=== PATIENT | male | born 1960 | race Caucasian/White ===

== ENCOUNTER → 2016-04-03 | Outpatient (CLI) | payer MEDICARE, MEDICAID ==
[~2016-04-03] MED LIST: /DIVA50TA PO; ABIL15TA PO; BENZ5TA PO; CETI10TA PO; DEPA500T2 PO; DIVA500T3 PO; INSUDET SC; JANU100T PO; LATU40TA PO; LATU80TA PO; LEVEINJ SC; LISI5TAB PO; NEXI40GR PO; RISP4TAB2 PO; RISP4TAB33 PO; SIMV40TA2 PO; TRAZ100T2 PO; abilify PO
[2016-04-03 17:40] LABS: ALBUMIN/GLOBULIN RATIO 1.33 (1.00-1.93); ALKALINE PHOSPHATASE 60 U/L (45-117); ALT/SGPT 18 U/L (12-78); ANION GAP 6 MEQ/L (8-16); AST/SGOT 6 U/L (15-37); BILIRUBIN,TOTAL 0.6 MG/DL (0.2-1.0); BLOOD UREA NITROGEN 10 MG/DL (7-18); CALCIUM LEVEL 8.9 MG/DL (8.5-10.1); CARBON DIOXIDE LEVEL 32 MEQ/L (21-32); CHLORIDE LEVEL 99 MEQ/L (98-107); CHOLESTEROL LEVEL 159 MG/DL (<200); CREATININE FOR GFR 0.85 MG/DL (0.70-1.30); FREE T4 0.91 NG/DL (0.76-1.46); GLOMERULAR FILTRATION RATE > 60.0 (>56); GLUCOSE, FASTING 151 MG/DL (70-105); POTASSIUM SERUM 4.5 MEQ/L (3.5-5.1); SODIUM LEVEL 137 MEQ/L (136-145); TRIGLYCERIDES LEVEL 165 MG/DL (<150)
[2016-04-03 18:02] LABS: BASO % 0.4 % (0.0-1.0); EOS # 0.2 K/mm3 (0.0-0.50); EOS % 2.3 % (0.0-3.0); LYMPH # 1.7 K/mm3 (1.5-4.5); MEAN CORPUSCULAR HEMOGLOBIN 32.6 pg (27.0-33.0); MEAN CORPUSCULAR HGB CONC 34.1 g/dl (32.0-36.5); MEAN CORPUSCULAR VOLUME 95.5 fl (80.0-96.0); MONO # 0.6 K/mm3 (0.0-0.8); MONO % 6.4 % (0.0-5.0); NEUTROPHILS % 73.1 % (36.0-66.0); RED CELL DISTRIBUTION WIDTH 12.3 % (11.5-14.5); WHITE BLOOD COUNT 9.6 K/mm3 (4.0-10.0)
== END ==
LOC: M WUC 11:43
PROVIDERS: ATTEND Nurse Practitioner Adult Health
DX: Z79.899 Other long term (current) drug therapy (principal); E78.4 Other hyperlipidemia; E03.9 Hypothyroidism, unspecified; E11.65 Type 2 diabetes mellitus with hyperglycemia

== ENCOUNTER → 2016-05-10 | Outpatient (CLI) | payer MEDICARE, MEDICAID ==
[2016-05-10 14:07] LABS: LITHIUM LEVEL 0.87 MEQ/L (0.60-1.20)
== END ==
LOC: M WUC 09:01
PROVIDERS: ATTEND Psychiatry & Neurology Psychiatry
DX: Z79.899 Other long term (current) drug therapy (principal)

== ENCOUNTER → 2016-07-06 | Outpatient (CLI) | payer MEDICARE, MEDICAID ==
[2016-07-06 17:56] LABS: BASO % 0.5 % (0.0-1.0); EOS # 0.1 K/mm3 (0.0-0.50); EOS % 2.7 % (0.0-3.0); LYMPH # 1.7 K/mm3 (1.5-4.5); LYMPH % 33.7 % (24.0-44.0); MEAN CORPUSCULAR HEMOGLOBIN 32.8 pg (27.0-33.0); MEAN CORPUSCULAR HGB CONC 33.4 g/dl (32.0-36.5); MEAN CORPUSCULAR VOLUME 98.2 fl (80.0-96.0); MONO # 0.4 K/mm3 (0.0-0.8); MONO % 8.1 % (0.0-5.0); NEUTROPHILS # 2.7 K/mm3 (1.8-7.7); NEUTROPHILS % 52.6 % (36.0-66.0); RED CELL DISTRIBUTION WIDTH 12.2 % (11.5-14.5); WHITE BLOOD COUNT 5.1 K/mm3 (4.0-10.0)
[2016-07-06 18:26] LABS: ALBUMIN 3.9 GM/DL (3.2-5.2); ALKALINE PHOSPHATASE 53 U/L (45-117); ALT/SGPT 16 U/L (12-78); ANION GAP 5 MEQ/L (8-16); AST/SGOT 5 U/L (15-37); BILIRUBIN,TOTAL 0.3 MG/DL (0.2-1.0); BLOOD UREA NITROGEN 12 MG/DL (7-18); CALCIUM LEVEL 8.8 MG/DL (8.5-10.1); CARBON DIOXIDE LEVEL 32 MEQ/L (21-32); CHLORIDE LEVEL 104 MEQ/L (98-107); CHOLESTEROL LEVEL 161 MG/DL (<200); CREATININE FOR GFR 0.85 MG/DL (0.70-1.30); GLOMERULAR FILTRATION RATE > 60.0 (>56); GLUCOSE, FASTING 115 MG/DL (70-105); POTASSIUM SERUM 4.4 MEQ/L (3.5-5.1); SODIUM LEVEL 141 MEQ/L (136-145); TOTAL PROTEIN 6.9 GM/DL (6.4-8.2); TRIGLYCERIDES LEVEL 131 MG/DL (<150)
== END ==
LOC: M WUC 11:12
PROVIDERS: ATTEND Nurse Practitioner Adult Health
DX: E11.65 Type 2 diabetes mellitus with hyperglycemia (principal); Z79.899 Other long term (current) drug therapy; E78.4 Other hyperlipidemia; E55.9 Vitamin D deficiency, unspecified

== ENCOUNTER → 2016-08-16 | Outpatient (CLI) | payer MEDICARE, MEDICAID ==
[~2016-08-16] MED LIST changes: +CARN250C3 PO; +DEPA250T32 PO; +DIVA500T9 PO; +ESOM1CAP5 PO; +FLOM5CAP PO; +GEMF600T PO; +KEFL500C17 PO; +LATA5OPD OD; +LEVE1INJ5 SC; +LEVO25TA5 PO; +LISI-542 PO; +LITH150C PO; +LITH300C PO; +NAPR500T PO; +PRIM250T8 PO; +RISP1TAB3 PO; +SENN1TAB2 PO; +TRIH2TAB3 PO; +[UNRECOGNIZED DRUG - OTHER] PO
--- NOTE | 2016-08-16 17:48 | REP ---
Clinical: Dysphonia. Findings: Low density changes in the white matter of the left frontal lobe is concerning for infarction and less likely underlying mass lesion. No intracranial hemorrhage. No significant mass effect. No extra-axial collection. The ventricles are relatively normal. The calvarium is intact. The sinuses are clear. Impression: Low density changes in the left frontal lobe. Differential diagnosis includes chronic changes as well as acute infarction and less likely underlying mass lesion. Signed by Charanjit Long MD 08/16/2016 05:39 P
== END ==
LOC: M RAD 17:21
PROVIDERS: ATTEND Nurse Practitioner Adult Health
DX: R49.0 Dysphonia (principal); R41.0 Disorientation, unspecified

== ENCOUNTER 2016-08-20 13:20 | Inpatient (IN) | payer MEDICARE, MEDICAID ==
[~2016-08-20] VITALS: Ht 177.8 cm; Wt 94.4 kg
[~2016-08-20 13:20] MED LIST changes: -CARN250C3 PO; -DEPA250T32 PO; -DIVA500T9 PO; -ESOM1CAP5 PO; -FLOM5CAP PO; -GEMF600T PO; -KEFL500C17 PO; -LATA5OPD OD; -LEVE1INJ5 SC; -LEVO25TA5 PO; -LISI-542 PO; -LITH150C PO; -LITH300C PO; -NAPR500T PO; -PRIM250T8 PO; -RISP1TAB3 PO; -SENN1TAB2 PO; -TRIH2TAB3 PO; -[UNRECOGNIZED DRUG - OTHER] PO
[2016-08-20] MEDS ORDERED: LEVO25TA5 PO (14:13)
[2016-08-20] MEDS ORDERED: PRIM250T8 PO (14:13)
[2016-08-20] MEDS ORDERED: [UNRECOGNIZED DRUG - OTHER] PO (14:13)
[2016-08-20] MEDS ORDERED: DEPA250T32 PO (14:13)
[2016-08-20] MEDS ORDERED: GEMF600T PO (14:13)
[2016-08-20] MEDS ORDERED: RISP1TAB3 PO (14:13)
[2016-08-20] MEDS ORDERED: LATA5OPD OD (14:13)
[2016-08-20] MEDS ORDERED: LITH300C PO ×2 (14:13)
[2016-08-20 14:46] LABS: ANION GAP 6 MEQ/L (8-16); BLOOD UREA NITROGEN 25 MG/DL (7-18); CARBON DIOXIDE LEVEL 27 MEQ/L (21-32); CHLORIDE LEVEL 103 MEQ/L (98-107); CREATININE FOR GFR 1.18 MG/DL (0.70-1.30); GLOMERULAR FILTRATION RATE > 60.0 (>56); GLUCOSE, FASTING 78 MG/DL (70-105); POTASSIUM SERUM 3.8 MEQ/L (3.5-5.1); SODIUM LEVEL 136 MEQ/L (136-145)
[2016-08-20 14:47] LABS: INR 1.1
--- NOTE | 2016-08-20 14:48 | REP ---
Clinical: Altered mental status. Cerebrovascular accident. Comparison: 08/16/2016. Findings: Age-related atrophy and microvascular ischemic changes are again appreciated and stable. Low density area within the left frontal lobe white matter remain stable and may represent chronic change. No acute mass/mass effect. No intracranial hemorrhage. No extra-axial collection. The ventricle and cisterns are symmetric and normal. The calvarium is intact. The sinuses are clear. Impression: No change from prior examination. Low density area within the left frontal lobe remains stable. No new acute intracranial process identified. Signed by Charanjit Long MD 08/20/2016 02:39 P
[2016-08-20 14:52] LABS: BASO # 0.1 K/mm3 (0.0-0.2); BASO % 0.8 % (0.0-1.0); EOS # 0.1 K/mm3 (0.0-0.50); EOS % 1.5 % (0.0-3.0); LARGE UNSTAINED CELL # 0.2 K/mm3 (0.0-0.4); LARGE UNSTAINED CELL % 1.7 % (0.0-4.0); LYMPH # 1.2 K/mm3 (1.5-4.5); LYMPH % 13.6 % (24.0-44.0); MEAN CORPUSCULAR HEMOGLOBIN 33.2 pg (27.0-33.0); MEAN CORPUSCULAR HGB CONC 35.9 g/dl (32.0-36.5); MEAN CORPUSCULAR VOLUME 92.5 fl (80.0-96.0); MONO # 0.6 K/mm3 (0.0-0.8); MONO % 6.4 % (0.0-5.0); NEUTROPHILS # 6.8 K/mm3 (1.8-7.7); NEUTROPHILS % 75.9 % (36.0-66.0); PLATELET COUNT, AUTOMATED 242 k/mm3 (150-450); RED CELL DISTRIBUTION WIDTH 12.1 % (11.5-14.5)
[2016-08-20] MEDS ORDERED: DIVA500T9 PO (17:22)
[2016-08-20] MEDS ORDERED: ESOM1CAP5 PO (17:24)
[2016-08-20] MEDS ORDERED: CARN250C3 PO (17:24)
[2016-08-20] MEDS ORDERED: LISI-542 PO (17:26)
[2016-08-20] MEDS ORDERED: LEVE1INJ5 SC (17:26)
[2016-08-20] MEDS ORDERED: JANU100T PO (17:27)
[2016-08-20] MEDS ORDERED: TRIH2TAB3 PO (17:27)
[2016-08-20] MEDS ORDERED: RISP4TAB33 PO (17:28)
[2016-08-20] MEDS ORDERED: ASPIRIN 81 MG CHEW TABLET PO ONE (17:30)
[2016-08-20 17:35] LABS: LITHIUM LEVEL 2.23 MEQ/L (0.60-1.20)
[2016-08-20] MEDS ORDERED: NS 1,000 ML IV ONE (18:00)
[2016-08-20] MEDS ORDERED: GLUCAGON FOR INJ 1 MG VIAL (J1610) SC PRN (19:30)
[2016-08-20] MEDS ORDERED: DEXTROSE 50% 50 ML SYRINGE IV PRN (19:30)
[2016-08-20] MEDS ORDERED: IPRATROPIUM 0.5MG/ALBUTEROL 2.5MG INH SOL UD 3ML (DUONEB)(J7620) NEB PRN (19:30)
[2016-08-20] MEDS: IPRATROPIUM 0.5MG/ALBUTEROL 2.5MG INH SOL UD 3ML (DUONEB)(J7620) NEB SCH (20:00)
--- NOTE | 2016-08-20 20:20 | REPUSA ---
MRI of the brain Clinical history: difficulty walking. Technique: Multiecho multiplanar MRI images of the brain were obtained Before and after administrati on of intravenous gadolinium contrastcontrast. Diffusion weighted images with ADC mapping was also ob tained. Comparison: CT, 08/20/2016. Findings: The study is somewhat limited because of patient motion. The ventricles and sulci are symmetric but prominent in size bilaterally. This is most prominent in the posterior parietal and occipital lobes b ilaterally. The brain parenchyma demonstrates a focal area of T2 hyperintensity in the subcortical wh ite matter of the left frontal lobe. There is no evidence of restricted diffusion at the site however . There is no discrete evidence of abnormal enhancement. There is no midline shift, mass effect, or e xtra-axial fluid collection. The midline intracranial structures do not demonstrate any gross abnorma lities. The cervical cranial junction is intact. The orbits are unremarkable. The visualized paranasa l sinuses and mastoid air cells are clear. The osseous structures and superficial soft tissues are un remarkable. The vascular structures demonstrate appropriate flow voids. Impression: 1. Moderately severe age-related atrophy, most prominent in the posterior parietal and occipital lobe s bilaterally. 2. Large area of subcortical white matter changes in the left frontal lobe. Mildbilateral subcortical white matter changes are also appreciated. No evidence of restricted diffusion to suggest acute infa rct however. The findings most likely represent chronic small vessel ischemic disease.
[2016-08-20 21:00] VITALS: BP 129/84
[2016-08-20] MEDS: LATANOPROST 0.005% OPHTH SOLN 2.5 ML OD SCH (21:00)
[2016-08-20] MEDS: HumaLOG INSULIN (NovoLOG) PER UNIT SC SCH (21:00)
[2016-08-20] MEDS: risperiDONE 2 MG TAB PO SCH (23:39)
[2016-08-20] MEDS: PRIMIDONE 250 MG TAB PO SCH (23:39)
[2016-08-20] MEDS: TRIHEXYPHENIDYL 2 MG TAB PO SCH (23:39)
[2016-08-20] MEDS: DIVALPROEX 500MG *ER* TAB PO SCH (23:39)
[2016-08-20] MEDS: levOCARNitine ORAL SOLUTION 1,000 MG/10 ML (CARNITOR) PO SCH (23:39)
[2016-08-20] MEDS: GEMFIBROZIL 600 MG TAB PO SCH (23:39)
[2016-08-21] VITALS (7 sets, daily range): BP systolic 93–149; BP diastolic 52–89
[2016-08-21] MEDS: IPRATROPIUM 0.5MG/ALBUTEROL 2.5MG INH SOL UD 3ML (DUONEB)(J7620) NEB SCH ×4 (01:31→19:42)
[2016-08-21] MEDS: LEVOTHYROXINE 25MCG TABLET (0.025MG) PO SCH (06:00)
--- NOTE | 2016-08-21 06:16 | HPE ---
DATE OF ADMISSION: 08/20/2016 PRIMARY CARE PROVIDER: Lisa Hill NP CHIEF COMPLAINT: Difficulty ambulating. HISTORY OF PRESENT ILLNESS: Patient is a 55-year-old male with past medical history of tardive dyskinesia, schizoaffective disorder, expressive aphasia presented with about a 10 day history of confusion, impaired balance, slurred speech, disorientation and difficulty ambulating. He normally lives alone, but due to the current issues has moved in with mom, who is currently taking care of him. He is unable to function like he did in the past. Mom and sister at bedside spoke on his behalf because he is not able to communicate his medical problems now. Appears somewhat confused. REVIEW OF SYSTEMS: Unable to obtain. PAST MEDICAL HISTORY: From sister: Insulin-dependent diabetes mellitus, hypertension. PAST SURGICAL HISTORY: Cholecystectomy. FAMILY HISTORY: Dad has CAD, CVA and diabetes. Mother has hypertension and osteoarthritis. SOCIAL HISTORY: He is an ex-smoker and does not drink alcohol or use recreational drugs. He used to live alone. ALLERGY TO MEDICATIONS: None. His list of medications are: - aspirin 81 mg once a day - Depakote extended release 500 mg by mouth twice a day - gemfibrozil 600 mg by mouth twice a day - Levemir 56 units once a day - latanoprost 0.05% ophthalmic solution at night - levocarnitine 250 mg twice a day - levothyroxine 25 mcg once a day - lisinopril 5 mg daily - primidone 250 mg by mouth twice a day - risperidone 4 mg by mouth nightly - risperidone 1 mg by mouth every morning - Januvia 100 mg daily - Artane 2 mg by mouth three times a day PHYSICAL EXAMINATION: VITAL SIGNS: Blood pressure 129/84, pulse 82, respiratory rate 22, oxygen saturation 97% in room air, temperature 98.4 degrees Fahrenheit. GENERAL: He is awake, oriented to person only, doubt if he recognizes his environment time, appears comfortable in bed. HEENT: Pupils equal, round and reactive to light. Anicteric sclerae. Mucous membranes moist. CARDIOVASCULAR SYSTEM: S1, S2, present. Heart rate is regular. RESPIRATORY SYSTEM: Lungs clear. GASTROINTESTINAL (GI): Abdomen soft, nontender, nondistended. Bowel sounds are normal. MUSCULOSKELETAL SYSTEM: No edema, cyanosis or clubbing. Pulses palpable in all extremities. SKIN: Is warm, dry, acyanotic. Without rash, petechia or ecchymosis. NEUROLOGY: Deferred. LABORATORY DATA: Hematology: White blood cell count 9000, hemoglobin 14, hematocrit 39, platelets 242. Coagulopathy: INR 1.1, PT 14.4, PTT 31.9. Chemistry: Sodium 136, potassium 3.8, chloride 103, bicarbonate 27, BUN 25, creatinine 1.18, fasting glucose 78, calcium 9.8, ammonia 58, CK of 40, troponin less than 0.02. Toxicology: Valproic acid 44.3, lithium 2.23. IMAGING STUDIES: CT scan of the head without contrast: No change from prior exam. Low density area within the left frontal lobe remains stable. No new acute intracranial process. EKG: Normal sinus rhythm at 85 beats per minute with left axis deviation. IMPRESSION: 1. Toxic encephalopathy. 2. Digoxin toxicity. 3. Difficulty ambulating. 4. History of diabetes, controlled. 5. History of hypertension, stable. 6. History of schizoaffective disorder. PLAN: Patient is admitted. As per neuro on-call recommendation, he was given aspirin. MRI of the brain ordered. Hydrated with saline. Repeat lithium level pending. Blood sugar will be monitored and covered with sliding scale insulin. Resume his chronic home medications, excluding lithium for now. Please observe for fall precaution due to impaired gait. Deep venous thrombosis (DVT) prophylaxis is with Lovenox.
[2016-08-21 07:29] LABS: MEAN CORPUSCULAR HEMOGLOBIN 32.6 pg (27.0-33.0); MEAN CORPUSCULAR VOLUME 93.1 fl (80.0-96.0); RED CELL DISTRIBUTION WIDTH 12.1 % (11.5-14.5); WHITE BLOOD COUNT 6.1 K/mm3 (4.0-10.0)
--- NOTE | 2016-08-21 07:30 | ECGEPIP ---
Stationary ECG Study [facility] - ED Test Date: 2016-08-20 Pat Name: VASU FAIR Department: Room: - Gender: M [employer]: ct : 1960 Requested By: VASU Oliver Order Number: [id number] Reading MD: Michelle Berg Measurements Intervals [place] Rate: 85 P: 74 MO: 172 QRS: -36 QRSD: 116 T: -21 QT: 273 QTc: 326 Interpretive Statements SINUS RHYTHM MARKED LEFT AXIS DEVIATION LOW QRS VOLTAGE IN EXTREMITY LEADS MODERATE INTRAVENTRICULAR CONDUCTION DELAY NONSPECIFIC T-WAVE ABNORMALITY Electronically Signed On 08-21-2016 7:30:50 EDT by Michelle Berg
[2016-08-21 08:04] LABS: ALBUMIN 3.5 GM/DL (3.2-5.2); ALBUMIN/GLOBULIN RATIO 1.35 (1.00-1.93); ALKALINE PHOSPHATASE 59 U/L (45-117); ALT/SGPT 14 U/L (12-78); ANION GAP 9 MEQ/L (8-16); AST/SGOT 8 U/L (15-37); BILIRUBIN,TOTAL 0.3 MG/DL (0.2-1.0); BLOOD UREA NITROGEN 20 MG/DL (7-18); CALCIUM LEVEL 8.9 MG/DL (8.5-10.1); CARBON DIOXIDE LEVEL 24 MEQ/L (21-32); CHLORIDE LEVEL 105 MEQ/L (98-107); CREATININE FOR GFR 0.82 MG/DL (0.70-1.30); GLOMERULAR FILTRATION RATE > 60.0 (>56); GLUCOSE, FASTING 82 MG/DL (70-105); SODIUM LEVEL 138 MEQ/L (136-145); TOTAL PROTEIN 6.1 GM/DL (6.4-8.2)
[2016-08-21] MEDS: HumaLOG INSULIN (NovoLOG) PER UNIT SC SCH ×4 (08:04→22:07)
[2016-08-21] MEDS: LEVEMIR (INSULIN DETEMIR) 1 UNITS/0.01ML SC SCH (08:55)
[2016-08-21] MEDS: GEMFIBROZIL 600 MG TAB PO SCH ×2 (08:56→21:58)
[2016-08-21] MEDS: risperiDONE 1 MG TAB PO SCH (08:56)
[2016-08-21] MEDS: TRIHEXYPHENIDYL 2 MG TAB PO SCH ×3 (08:56→21:57)
[2016-08-21] MEDS: ENOXAPARIN 40 MG/0.4 ML SYRINGE (J1650) SC SCH (08:56)
[2016-08-21] MEDS: DIVALPROEX 500MG *ER* TAB PO SCH ×2 (08:56→21:58)
[2016-08-21] MEDS: LISINOPRIL 5 MG TAB PO SCH (08:56)
[2016-08-21] MEDS: PRIMIDONE 250 MG TAB PO SCH ×2 (08:56→21:58)
[2016-08-21] MEDS: levOCARNitine ORAL SOLUTION 1,000 MG/10 ML (CARNITOR) PO SCH ×2 (09:48→17:12)
[2016-08-21] MEDS: SITagliptin 50 MG TAB (JANUVIA) PO SCH (09:48)
[2016-08-21] MEDS ORDERED: NS 1,000 ML IV ONE (13:00)
--- NOTE | 2016-08-21 13:19 | IPN ---
DATE: 08/21/2016 SUBJECTIVE: The patient has great difficulty getting his words out. He stammers and stutters. He tells me that he feels well and has no complaints. OBJECTIVE: VITAL SIGNS: Temperature 98.7, pulse 70, respiratory rate 18, blood pressure 107/58, oxygen saturation 98% on room air. GENERAL: He is a disheveled man laying flat in bed. He does writhe in bed. He does have a resting tremor. He does exhibit lip smacking and stutters with slow, slurred speech. However, he is wake, alert and oriented times three and answers all questions appropriately when given appropriate amount of time to answer. HEENT: Dry mucous membranes. No elevation of CVP. He does not cooperate with cranial nerve testing. Tongue is midline. He does not comply with extraocular muscle testing. CARDIOVASCULAR EXAM: S1 and S2 regular. RESPIRATORY EXAM: Clear. ABDOMINAL EXAM: Bowel sounds are present. The abdomen is soft. EXTREMITIES: No clubbing, cyanosis, or edema. LABORATORY STUDIES: WBC 6.1, hemoglobin 12.3, platelet count 235. Chemistry panel: Sodium 138, potassium 4.0, chloride 105, bicarb 24, BUN 20, creatinine 0.8, INR 1.1, lithium level is 1.8 today down from 2.3 yesterday. IMAGING: The patient did have an MRI of the brain which revealed moderate severe age related atrophy, most prominent in the posterior parietal and occipital lobes. Large area of subcortical white matter changes in the left frontal lobe. Mid bilateral subcortical white matter changes also appreciated. Findings most likely present some chronic small vessel ischemic disease. ASSESSMENT/PLAN: This is an 83-year-old man with encephalopathy. 1. Encephalopathy. Likely related to lithium toxicity. The patient's lithium level is trending down at this time. He is oriented, but certainly not at his baseline. I will have physical therapy/occupational therapy evaluate. I did call and speak with is sister , Joan Foster. She did inform me that from my description today he does appear to be doing better than yesterday. She will stop by and see him today. We will continue holding lithium and continue to monitor him closely and see if he improves. Neurology consultation by Dr. Yip. The patient normally follows with Dr. Thapa for his tardive dyskinesia which appears to have worsened over the last several weeks. He also curiously has moderate severe age related changes, however he is not so advanced for age and seems somewhat disproportionate for the report compared to his age. 2. Schizoaffective disorder. Continue with Risperdal. Patient follows normally with a psychiatrist. Patient is on Depakote extended release. 3. Tardive dyskinesia. Continue with primidone and Artane. Followup neurology recommendations. 4. Hypothyroidism. Continue with Synthroid. 5. Type 2 diabetes. Continue with insulin and sliding scale. 6. Hypertension. Continue with lisinopril. 7. Dyslipidemia. Continue with gemfibrozil. 8. Deep vein thrombosis (DVT) prophylaxis. The patient is on Lovenox. DISPOSITION: Pending improvement and physical therapy evaluation. Continue to follow this patient closely. EDWIN
[2016-08-21] MEDS: NS 1,000 ML IV SCH ×2 (14:47→23:00)
[2016-08-21] MEDS: risperiDONE 2 MG TAB PO SCH (21:58)
[2016-08-21] MEDS: LATANOPROST 0.005% OPHTH SOLN 2.5 ML OD SCH (21:59)
[2016-08-22] MEDS: IPRATROPIUM 0.5MG/ALBUTEROL 2.5MG INH SOL UD 3ML (DUONEB)(J7620) NEB SCH ×4 (01:54→20:28)
[2016-08-22 04:38] VITALS: BP 106/62
[2016-08-22 05:55] LABS: MEAN CORPUSCULAR HEMOGLOBIN 32.6 pg (27.0-33.0); MEAN CORPUSCULAR VOLUME 93.2 fl (80.0-96.0); RED CELL DISTRIBUTION WIDTH 12.2 % (11.5-14.5); WHITE BLOOD COUNT 8.7 K/mm3 (4.0-10.0)
[2016-08-22] MEDS: LEVOTHYROXINE 25MCG TABLET (0.025MG) PO SCH (05:55)
[2016-08-22 06:13] LABS: ANION GAP 6 MEQ/L (8-16); BLOOD UREA NITROGEN 11 MG/DL (7-18); CALCIUM LEVEL 9.2 MG/DL (8.5-10.1); CARBON DIOXIDE LEVEL 28 MEQ/L (21-32); CHLORIDE LEVEL 106 MEQ/L (98-107); CREATININE FOR GFR 0.75 MG/DL (0.70-1.30); GLOMERULAR FILTRATION RATE > 60.0 (>56); GLUCOSE, FASTING 83 MG/DL (70-105); POTASSIUM SERUM 3.9 MEQ/L (3.5-5.1); SODIUM LEVEL 140 MEQ/L (136-145)
--- NOTE | 2016-08-22 07:28 | CR ---
DATE OF CONSULTATION: 08/21/2016 REFERRING PHYSICIAN: Dr. Khloe Yip REASON FOR CONSULTATION: Difficulty walking, confusion and imbalance. HISTORY OF PRESENT ILLNESS: The patient is a 55-year-old man with history of tardive dyskinesia, schizoaffective disorder, expressive aphasia who presented to [facility] with 10 day history of confusion, imbalance slurred speech, disorientation, stuttering speech and difficulty ambulating. The patient normally lives alone, but due to his current medical issues moved with his mother. Mother has been taking care of him. He is unable to function like he did in the past. The patient has stuttering speech when I examine him. Some words and sentences will be clear and other sentences will be affected by stuttering speech. He appeared slightly confused. The patient denies any headaches, neck or back pain. He follows with Dr. Garcia for his psychiatric disorders. PAST MEDICAL HISTORY: 1. Hypertension. 2. Diabetes. 3. Schizoaffective disorder. 4. Tardive dyskinesia. 5. Expressive aphasia. ALLERGIES: None. SOCIAL HISTORY: He is a former smoker. He is currently living with his mother, although usually lives alone. He denies alcohol or illicit drugs. HOME MEDICATIONS: - aspirin 81 mg by mouth daily - Depakote extended-release 500 mg by mouth twice a day - gemfibrozil 600 mg by mouth twice a day - insulin Levemir 56 units once a day subcutaneously - lisinopril 5 mg by mouth daily - primidone 250 mg by mouth twice a day - risperidone 4 mg at night and 1 mg in the morning - Januvia 100 mg by mouth daily - Artane 2 mg by mouth three times a day - levocarnitine 250 mg by mouth twice a day - levothyroxine 25 mcg by mouth daily - lisinopril 5 mg by mouth daily FAMILY HISTORY: Father has coronary artery disease and had a stroke. Mother has hypertension and osteoarthritis. PHYSICAL EXAMINATION: Temperature 96.4, pulse 103, respiratory rate 18, blood pressure 149/88, 95% saturation on room air. Heart: Regular rate and rhythm. Lungs: Clear to auscultation. No pedal edema. He has decreased peripheral pulses. No gross musculoskeletal abnormalities. Ears, nose and throat examination is within normal limits. The patient is awake, alert, oriented to place and person. He has stuttering speech. Sometimes his sentences and words are clear and other times they are affected by a stuttering speech. No facial weakness. Tongue and uvula are midline. Extraocular muscles are intact. 5/5 strength in all four extremities. Deep tendon flexes are 1+ in arms and absent in legs. He has decreased cold pinprick vibration sensation in his feet. Plantars are downgoing. No dysmetria. Gait was not tested. REVIEW OF SYSTEMS: All systems were reviewed and were found to be noncontributory except as mentioned in history of present illness. DIAGNOSTIC STUDIES: His MRI scan of brain showed small vessel ischemic disease of brain and mild-moderate cerebral atrophy. There is no acute ischemic stroke. His lithium level is 2.23 and Depakote level was 44.3 and ammonia level 58. ASSESSMENT: 1. Multifactorial gait difficulty. 2. Diabetic peripheral neuropathy. 3. Extensive small vessel ischemic disease of brain. 4. M[place]ulley toxicity and hyperammonemia. PLAN: 1. Decrease dose of his lithium. The patient will be followed with his psychiatrist to adjust dose of lithium to prevent toxicity in future. 2. Check acetylcholine receptor antibody with my suspicion this index is low. He has more stuttering speech which is likely an effect of his medications and underlying psychiatric conditions.
[2016-08-22] MEDS: HumaLOG INSULIN (NovoLOG) PER UNIT SC SCH ×4 (07:30→21:00)
[2016-08-22] MEDS: ENOXAPARIN 40 MG/0.4 ML SYRINGE (J1650) SC SCH (07:53)
[2016-08-22] MEDS: levOCARNitine ORAL SOLUTION 1,000 MG/10 ML (CARNITOR) PO SCH ×2 (07:54→17:08)
[2016-08-22] MEDS: SITagliptin 50 MG TAB (JANUVIA) PO SCH (07:54)
[2016-08-22] MEDS: risperiDONE 1 MG TAB PO SCH (07:54)
[2016-08-22] MEDS: DIVALPROEX 500MG *ER* TAB PO SCH ×2 (07:54→21:34)
[2016-08-22] MEDS: GEMFIBROZIL 600 MG TAB PO SCH ×2 (07:55→21:34)
[2016-08-22] MEDS: TRIHEXYPHENIDYL 2 MG TAB PO SCH ×3 (07:55→21:34)
[2016-08-22 08:00] VITALS: BP 92/48
[2016-08-22] MEDS: LEVEMIR (INSULIN DETEMIR) 1 UNITS/0.01ML SC SCH (08:28)
[2016-08-22] MEDS: LISINOPRIL 5 MG TAB PO SCH (08:28)
[2016-08-22] MEDS: PRIMIDONE 250 MG TAB PO SCH ×2 (10:10→21:35)
[2016-08-22 12:00] VITALS: BP 105/63
--- NOTE | 2016-08-22 14:57 | IPNPDOC ---
Date Seen The patient was seen on 08/22/16. Progress Note SUBJECTIVE: The patient has great difficulty getting his words out. He stammers and stutters. He tells me that he feels well and has no complaints. OBJECTIVE: VITAL SIGNS: As below. GENERAL: He is a man laying flat in bed. He does exhibit lip smacking and stutters with slow, slurred speech. However, he is wake, alert and oriented times three and answers all questions appropriately when given appropriate amount of time to answer. HEENT: Dry mucous membranes. No elevation of CVP. He does not cooperate with cranial nerve testing. Tongue is midline. He does not comply with extraocular muscle testing. CARDIOVASCULAR EXAM: S1 and S2 regular. RESPIRATORY EXAM: Clear. ABDOMINAL EXAM: Bowel sounds are present. The abdomen is soft. EXTREMITIES: No clubbing, cyanosis, or edema. IMAGING: The patient did have an MRI of the brain which revealed moderate severe age related atrophy, most prominent in the posterior parietal and occipital lobes. Large area of subcortical white matter changes in the left frontal lobe. Mid bilateral subcortical white matter changes also appreciated. Findings most likely present some chronic small vessel ischemic disease. ASSESSMENT/PLAN: This is an 83-year-old man with encephalopathy. 1. Encephalopathy. Likely related to lithium toxicity. The patient's lithium level is trending down at this time. He is oriented, but certainly not at his baseline. Seen by Dr Pereyra ordered acetyl choline receptor antibody though suspicion is low. MRi brain with significant age related and chronic ischemic small vessel disease. 2. Schizoaffective disorder. Continue with Risperdal. Patient follows normally with a psychiatrist. Patient is on Depakote extended release. 3. Tardive dyskinesia. Continue with primidone and Artane. Followup neurology recommendations. 4. Hypothyroidism. Continue with Synthroid. 5. Type 2 diabetes. Continue with insulin and sliding scale. 6. Hypertension. Continue with lisinopril. 7. Dyslipidemia. Continue with gemfibrozil. 8. Deep vein thrombosis (DVT) prophylaxis. The patient is on Lovenox. VS, I&O, 24H, Fishbone Vital Signs/I&O Vital Signs Date Time Temp Pulse Resp B/P (MAP) Pulse Ox O2 Delivery O2 Flow Rate FiO2 08/22/16 12:00 98.7 63 16 105/63 (77) 93 Room Air I&O- Last 24 Hours up to 6 AM 08/22/16 06:00 Intake Total 2260 ml Output Total 1275 ml Balance 985 ml Laboratory Data 24H LABS Laboratory Tests 2 08/21/16 16:53: Bedside Glucose (Misc Panel) 107H 08/21/16 22:05: Bedside Glucose (Misc Panel) 68L 08/22/16 01:36: Bedside Glucose (Misc Panel) 85 08/22/16 05:34: Anion Gap 6L, Glomerular Filtration Rate > 60.0, Blood Urea Nitrogen 11, Creatinine 0.75, Sodium Level 140, Potassium Level 3.9, Chloride Level 106, Carbon Dioxide Level 28, Calcium Level 9.2 08/22/16 08:06: 08/22/16 10:15: Bedside Glucose (Misc Panel) 122H 08/22/16 11:38: Bedside Glucose (Misc Panel) 120H CBC/BMP Laboratory Tests 08/22/16 05:34 Red Blood Count 3.79 L, Mean Corpuscular Volume 93.2, Mean Corpuscular Hemoglobin 32.6, Mean Corpuscular Hemoglobin Concent 35.0, Red Cell Distribution Width 12.2, Calcium Level 9.2 SEAN GRAVES MD Aug 22, 2016 14:57
[2016-08-22 16:00] VITALS: BP 116/73
--- NOTE | 2016-08-22 16:32 | ECGEPIP ---
Stationary ECG Study [facility] Test Date: 2016-08-22 Pat Name: VASU FAIR Department: Room: [place] [address] Gender: M [employer]: : 1960 Requested By: SEAN GRAVES Order Number: [id number] Reading MD: Delphine Conner Measurements Intervals [place] Rate: 76 P: 79 NM: 180 QRS: -36 QRSD: 122 T: 5 QT: 388 QTc: 438 Interpretive Statements SINUS RHYTHM MARKED LEFT AXIS DEVIATION [QRS AXIS < -30] LAFB STT-WAVE ABNORMALITY LOW VOLTAGE LIMB SIMILAR TO 08/20/16 Electronically Signed On 08-22-2016 16:32:32 EDT by Delphine Conner
[2016-08-22 20:49] VITALS: BP 110/62
[2016-08-22] MEDS: risperiDONE 2 MG TAB PO SCH (21:33)
[2016-08-22] MEDS: LATANOPROST 0.005% OPHTH SOLN 2.5 ML OD SCH (21:36)
[2016-08-23 00:05] VITALS: BP 100/58
[2016-08-23] MEDS: IPRATROPIUM 0.5MG/ALBUTEROL 2.5MG INH SOL UD 3ML (DUONEB)(J7620) NEB SCH ×4 (02:00→21:02)
[2016-08-23 04:42] VITALS: BP 138/72
[2016-08-23] MEDS: LEVOTHYROXINE 25MCG TABLET (0.025MG) PO SCH (06:08)
[2016-08-23 06:15] LABS: MEAN CORPUSCULAR HEMOGLOBIN 32.6 pg (27.0-33.0); MEAN CORPUSCULAR HGB CONC 34.7 g/dl (32.0-36.5); RED CELL DISTRIBUTION WIDTH 12.1 % (11.5-14.5); WHITE BLOOD COUNT 5.8 K/mm3 (4.0-10.0)
[2016-08-23 06:32] LABS: ANION GAP 7 MEQ/L (8-16); BLOOD UREA NITROGEN 9 MG/DL (7-18); CARBON DIOXIDE LEVEL 28 MEQ/L (21-32); CHLORIDE LEVEL 105 MEQ/L (98-107); CREATININE FOR GFR 0.71 MG/DL (0.70-1.30); GLOMERULAR FILTRATION RATE > 60.0 (>56); GLUCOSE, FASTING 97 MG/DL (70-105); POTASSIUM SERUM 4.2 MEQ/L (3.5-5.1); SODIUM LEVEL 140 MEQ/L (136-145)
[2016-08-23] MEDS: HumaLOG INSULIN (NovoLOG) PER UNIT SC SCH ×4 (07:30→21:00)
[2016-08-23 08:00] VITALS: BP 109/66
[2016-08-23] MEDS: levOCARNitine ORAL SOLUTION 1,000 MG/10 ML (CARNITOR) PO SCH ×2 (10:21→17:55)
[2016-08-23] MEDS: DIVALPROEX 500MG *ER* TAB PO SCH ×2 (10:23→21:57)
[2016-08-23] MEDS: ENOXAPARIN 40 MG/0.4 ML SYRINGE (J1650) SC SCH (10:23)
[2016-08-23] MEDS: SITagliptin 50 MG TAB (JANUVIA) PO SCH (10:24)
[2016-08-23] MEDS: LISINOPRIL 5 MG TAB PO SCH (10:25)
[2016-08-23] MEDS: GEMFIBROZIL 600 MG TAB PO SCH ×2 (10:25→21:57)
[2016-08-23] MEDS: TRIHEXYPHENIDYL 2 MG TAB PO SCH ×3 (10:26→21:57)
[2016-08-23] MEDS: PRIMIDONE 250 MG TAB PO SCH ×2 (10:27→21:57)
[2016-08-23] MEDS: risperiDONE 1 MG TAB PO SCH (10:28)
[2016-08-23] MEDS: LEVEMIR (INSULIN DETEMIR) 1 UNITS/0.01ML SC SCH (11:11)
[2016-08-23 12:00] VITALS: BP 103/63
--- NOTE | 2016-08-23 13:47 | IPNPDOC ---
Date Seen The patient was seen on 08/23/16. Progress Note SUBJECTIVE: The patient has great difficulty getting his words out. He stammers and stutters and has expressive aphasia with repetitions. He tells me that he feels well and has no complaints. He is working with PT and did ambulate with walker and climb stairs. He says his thinking is very slow and he is having difficulty in remembering things. Pateint follows with Dr Garcia at the [facility] #[phone] OBJECTIVE: VITAL SIGNS: As below. GENERAL: He is a man laying flat in bed. He does exhibit lip smacking and stutters with slow, slurred speech. However, he is wake, alert and oriented times three and answers all questions appropriately when given appropriate amount of time to answer. HEENT: Dry mucous membranes. No elevation of CVP. He does not cooperate with cranial nerve testing. Tongue is midline. He does not comply with extraocular muscle testing. CARDIOVASCULAR EXAM: S1 and S2 regular. RESPIRATORY EXAM: Clear. ABDOMINAL EXAM: Bowel sounds are present. The abdomen is soft. EXTREMITIES: No clubbing, cyanosis, or edema. IMAGING: The patient did have an MRI of the brain which revealed moderate severe age related atrophy, most prominent in the posterior parietal and occipital lobes. Large area of subcortical white matter changes in the left frontal lobe. Mid bilateral subcortical white matter changes also appreciated. Findings most likely present some chronic small vessel ischemic disease. ASSESSMENT/PLAN: This is an 83-year-old man with encephalopathy. 1. Toxic Encephalopathy. Likely related to lithium toxicity. The patient's lithium level is trending down at this time. He is oriented, but certainly not at his baseline. Seen by Dr Pereyra ordered acetyl choline receptor antibody though suspicion is low. MRi brain with significant age related and chronic ischemic small vessel disease. 2. Schizoaffective disorder. Continue with Risperdal. Patient follows normally with a psychiatrist. Patient is on Depakote extended release. will discharge patient with reduced dose of lithium. 3. Tardive dyskinesia. Continue with primidone and Artane. Followup neurology recommendations. 4. Hypothyroidism. Continue with Synthroid. 5. Type 2 diabetes. Continue with insulin and sliding scale. 6. Hypertension. Continue with lisinopril. 7. Dyslipidemia. Continue with gemfibrozil. 8. Deep vein thrombosis (DVT) prophylaxis. The patient is on Lovenox. VS, I&O, 24H, Fishbone Vital Signs/I&O Vital Signs Date Time Temp Pulse Resp B/P (MAP) Pulse Ox O2 Delivery O2 Flow Rate FiO2 08/23/16 10:25 109/66 08/23/16 08:00 98.7 54 18 93 Room Air I&O- Last 24 Hours up to 6 AM 08/23/16 06:00 Intake Total 1200 ml Output Total 675 ml Balance 525 ml Laboratory Data 24H LABS Laboratory Tests 2 08/22/16 16:52: Bedside Glucose (Misc Panel) 161H 08/22/16 21:32: Bedside Glucose (Misc Panel) 123H 08/23/16 05:37: Anion Gap 7L, Glomerular Filtration Rate > 60.0, Blood Urea Nitrogen 9, Creatinine 0.71, Sodium Level 140, Potassium Level 4.2, Chloride Level 105, Carbon Dioxide Level 28, Calcium Level 9.0 08/23/16 11:52: Bedside Glucose (Misc Panel) 233H CBC/BMP Laboratory Tests 08/23/16 05:37 Red Blood Count 3.76 L, Mean Corpuscular Volume 94.0, Mean Corpuscular Hemoglobin 32.6, Mean Corpuscular Hemoglobin Concent 34.7, Red Cell Distribution Width 12.1, Calcium Level 9.0 SEAN GRAVES MD Aug 23, 2016 13:47
[2016-08-23 16:00] VITALS: BP 124/77
[2016-08-23 20:00] VITALS: BP 112/71
[2016-08-23] MEDS: LATANOPROST 0.005% OPHTH SOLN 2.5 ML OD SCH (21:56)
[2016-08-23] MEDS: risperiDONE 2 MG TAB PO SCH (21:57)
[2016-08-24] VITALS (7 sets, daily range): BP systolic 100–128; BP diastolic 50–79
[2016-08-24] MEDS: IPRATROPIUM 0.5MG/ALBUTEROL 2.5MG INH SOL UD 3ML (DUONEB)(J7620) NEB SCH ×4 (01:35→19:11)
[2016-08-24] MEDS: LEVOTHYROXINE 25MCG TABLET (0.025MG) PO SCH (05:49)
[2016-08-24 06:18] LABS: MEAN CORPUSCULAR HEMOGLOBIN 32.9 pg (27.0-33.0); MEAN CORPUSCULAR HGB CONC 35.6 g/dl (32.0-36.5); MEAN CORPUSCULAR VOLUME 92.3 fl (80.0-96.0); RED CELL DISTRIBUTION WIDTH 12.6 % (11.5-14.5); WHITE BLOOD COUNT 5.7 K/mm3 (4.0-10.0)
[2016-08-24] MEDS: HumaLOG INSULIN (NovoLOG) PER UNIT SC SCH ×4 (07:30→20:49)
[2016-08-24 08:26] LABS: ANION GAP 5 MEQ/L (8-16); BLOOD UREA NITROGEN 9 MG/DL (7-18); CALCIUM LEVEL 8.9 MG/DL (8.5-10.1); CARBON DIOXIDE LEVEL 28 MEQ/L (21-32); CHLORIDE LEVEL 107 MEQ/L (98-107); GLOMERULAR FILTRATION RATE > 60.0 (>56); GLUCOSE, FASTING 79 MG/DL (70-105); POTASSIUM SERUM 4.3 MEQ/L (3.5-5.1); SODIUM LEVEL 140 MEQ/L (136-145)
[2016-08-24 08:32] LABS: LITHIUM LEVEL 0.67 MEQ/L (0.60-1.20)
[2016-08-24] MEDS: levOCARNitine ORAL SOLUTION 1,000 MG/10 ML (CARNITOR) PO SCH ×2 (08:40→17:50)
[2016-08-24] MEDS: TRIHEXYPHENIDYL 2 MG TAB PO SCH ×3 (08:41→21:35)
[2016-08-24] MEDS: ENOXAPARIN 40 MG/0.4 ML SYRINGE (J1650) SC SCH (08:41)
[2016-08-24] MEDS: DIVALPROEX 500MG *ER* TAB PO SCH ×2 (08:41→21:33)
[2016-08-24] MEDS: PRIMIDONE 250 MG TAB PO SCH ×2 (08:41→21:33)
[2016-08-24] MEDS: risperiDONE 1 MG TAB PO SCH (08:41)
[2016-08-24] MEDS: GEMFIBROZIL 600 MG TAB PO SCH ×2 (08:42→21:34)
[2016-08-24] MEDS: SITagliptin 50 MG TAB (JANUVIA) PO SCH (08:42)
[2016-08-24] MEDS: LISINOPRIL 5 MG TAB PO SCH (08:43)
[2016-08-24] MEDS: LEVEMIR (INSULIN DETEMIR) 1 UNITS/0.01ML SC SCH (08:43)
--- NOTE | 2016-08-24 12:30 | IPNPDOC ---
Subjective Date Seen The patient was seen on 08/24/16. Subjective Chief Complaint/HPI The patient is a 55-year-old male admitted with a reason for visit of Difficulty Walking;Digoxin Toxicity. Events since last encounter Pateint tends to sleep till late morning and ofter does not take breakfast and over the past 2 days has not been eating well and refusing meals, his sugars have been running low so has not been getting his long acting insulin. Also had urinary retention yesterday and had to be straight cathed twice yesterday then had a leger placed. working with PT still functionally much below baseline. No fever or chills, no chest pain or SOb. no abdominal pain nausea or vomiting but has poor appetite. Objective Physical Examination General Exam: Positive: Cooperative, No Acute Distress, Other (somlonent but easily arousable. ) Eye Exam: Positive: PERRLA, Conjunctiva & lids normal, EOMI, Negative: Sclera icteric ENT Exam: Positive: Atraumatic, Mucous membr. moist/pink, Pharynx Normal Neck Exam: Positive: Supple, Negative: JVD, thyromegaly Chest Exam: Positive: Clear to auscultation, Normal air movement Heart Exam: Positive: Rate Normal, Regular Rhythm, Normal S1, Normal S2, Negative: Murmurs, Rubs Telemetry: Positive: No significant arrhythmia Abdomen Exam: Positive: Normal bowel sounds, Soft, Negative: Tenderness, Hepatospenomegaly Extremity Exam: Positive: Normal pulses, Negative: Clubbing, Cyanosis, Edema Assessment /Plan Problems (1) Toxic encephalopathy Status: Acute Problem Text: due to lithium overdose. lithium is on hold now level in the normal range will restart at a lower dosage. (2) [place] toxicity Status: Acute Problem Text: patient was probably taking wrong dosage , forgetting whether he took or not then probably taking repeat dosage. he was supposed to be taking 300 mg in the AM and 600 mg in the PM. Now restarted at 150 mg bid. (3) Schizoaffective disorder Status: Chronic Problem Text: continue risperidal , trihexiphenidyl, primidone and depakote. (4) Tardive dyskinesia Status: Acute (5) Hyperlipidemia Status: Chronic (6) Hypertension Status: Chronic Problem Text: Bps running low will stop lisinopril (7) Diabetes Status: Chronic Problem Text: sugars running low , poor oral intake will stop levemir continue januvia and sliding scale of lispro. (8) Diabetic neuropathy Status: Chronic (9) Gait abnormality Status: Chronic Problem Text: multifactorial due to tardive dyskinesia , diabetic neuropathy, tremora . working with PT (10) Urinary retention Status: Acute Problem Text: Has leger now will try flomax for a few days then give a trial of void. (11) Hypothyroid Status: Chronic Plan/VTE VTE Prophylaxis Ordered?: Yes Plan/Urinary Catheter Reason for insertion/continuin: Acute obstruct/retention VS, I&O, 24H, Fishbone Vital Signs/I&O Vital Signs Date Time Temp Pulse Resp B/P (MAP) Pulse Ox O2 Delivery O2 Flow Rate FiO2 08/24/16 08:43 119/73 08/24/16 08:00 98.1 65 18 93 Room Air I&O- Last 24 Hours up to 6 AM 08/24/16 06:00 Intake Total 1180 ml Output Total 1675 ml Balance -495 ml Laboratory Data 24H LABS Laboratory Tests 2 08/23/16 17:11: Bedside Glucose (Misc Panel) 92 08/23/16 21:56: Bedside Glucose (Misc Panel) 117H 08/24/16 07:51: Anion Gap 5L, Glomerular Filtration Rate > 60.0, Blood Urea Nitrogen 9, Creatinine 0.70, Sodium Level 140, Potassium Level 4.3, Chloride Level 107, Carbon Dioxide Level 28, Calcium Level 8.9, [place] Level 0.67 08/24/16 08:10: Bedside Glucose (Misc Panel) 109H 08/24/16 11:27: Bedside Glucose (Misc Panel) 175H CBC/BMP Laboratory Tests 08/24/16 06:00 Red Blood Count 3.65 L, Mean Corpuscular Volume 92.3, Mean Corpuscular Hemoglobin 32.9, Mean Corpuscular Hemoglobin Concent 35.6, Red Cell Distribution Width 12.6 08/24/16 07:51 Calcium Level 8.9 SEAN GRAVES MD Aug 24, 2016 12:29
[2016-08-24] MEDS: LITHIUM CARBONATE 150 MG CAP PO SCH ×2 (13:39→21:34)
[2016-08-24] MEDS: TAMSULOSIN 0.4 MG CAP PO SCH (21:35)
[2016-08-24] MEDS: risperiDONE 2 MG TAB PO SCH (21:37)
[2016-08-24] MEDS: LATANOPROST 0.005% OPHTH SOLN 2.5 ML OD SCH (21:38)
[2016-08-25] MEDS: IPRATROPIUM 0.5MG/ALBUTEROL 2.5MG INH SOL UD 3ML (DUONEB)(J7620) NEB SCH ×4 (02:00→19:37)
[2016-08-25 05:25] VITALS: BP 111/71
[2016-08-25] MEDS: LEVOTHYROXINE 25MCG TABLET (0.025MG) PO SCH (05:49)
[2016-08-25 05:59] LABS: MEAN CORPUSCULAR HEMOGLOBIN 33.1 pg (27.0-33.0); MEAN CORPUSCULAR HGB CONC 35.5 g/dl (32.0-36.5); MEAN CORPUSCULAR VOLUME 93.4 fl (80.0-96.0); RED CELL DISTRIBUTION WIDTH 12.7 % (11.5-14.5); WHITE BLOOD COUNT 7.3 K/mm3 (4.0-10.0)
[2016-08-25 06:18] LABS: ANION GAP 6 MEQ/L (8-16); BLOOD UREA NITROGEN 10 MG/DL (7-18); CALCIUM LEVEL 8.9 MG/DL (8.5-10.1); CARBON DIOXIDE LEVEL 29 MEQ/L (21-32); CHLORIDE LEVEL 106 MEQ/L (98-107); GLOMERULAR FILTRATION RATE > 60.0 (>56); GLUCOSE, FASTING 91 MG/DL (70-105); POTASSIUM SERUM 4.2 MEQ/L (3.5-5.1); SODIUM LEVEL 141 MEQ/L (136-145)
[2016-08-25] MEDS: HumaLOG INSULIN (NovoLOG) PER UNIT SC SCH ×4 (07:40→21:00)
--- NOTE | 2016-08-25 08:03 | IPNPDOC ---
Subjective Date Seen The patient was seen on 08/25/16. Subjective Chief Complaint/HPI The patient is a 55-year-old male admitted with a reason for visit of Difficulty Walking;Digoxin Toxicity. Events since last encounter No new issues overnight, patient did not offer any complaint. no fever or chills , no chest pain or SOB. Objective Physical Examination General Exam: Positive: Cooperative, No Acute Distress, Other (somlonent but easily arousable. ) Eye Exam: Positive: PERRLA, Conjunctiva & lids normal, EOMI, Negative: Sclera icteric ENT Exam: Positive: Atraumatic, Mucous membr. moist/pink, Pharynx Normal Neck Exam: Positive: Supple, Negative: JVD, thyromegaly Chest Exam: Positive: Clear to auscultation, Normal air movement Heart Exam: Positive: Rate Normal, Regular Rhythm, Normal S1, Normal S2, Negative: Murmurs, Rubs Telemetry: Positive: No significant arrhythmia Abdomen Exam: Positive: Normal bowel sounds, Soft, Negative: Tenderness, Hepatospenomegaly Extremity Exam: Positive: Normal pulses, Negative: Clubbing, Cyanosis, Edema Assessment /Plan Problems (1) Toxic encephalopathy Status: Acute Problem Text: due to lithium overdose. lithium is on hold now level in the normal range will restart at a lower dosage. (2) [place] toxicity Status: Acute Problem Text: patient was probably taking wrong dosage , forgetting whether he took or not then probably taking repeat dosage. he was supposed to be taking 300 mg in the AM and 600 mg in the PM. Now restarted at 150 mg bid. (3) Schizoaffective disorder Status: Chronic Problem Text: continue risperidal , trihexiphenidyl, primidone and depakote. (4) Tardive dyskinesia Status: Acute (5) Hyperlipidemia Status: Chronic (6) Hypertension Status: Chronic Problem Text: Bps running low will stop lisinopril (7) Diabetes Status: Chronic Problem Text: sugars running low , poor oral intake will stop levemir continue januvia and sliding scale of lispro. (8) Diabetic neuropathy Status: Chronic (9) Gait abnormality Status: Chronic Problem Text: multifactorial due to tardive dyskinesia , diabetic neuropathy, tremora . working with PT (10) Urinary retention Status: Acute Problem Text: Has leger now will try flomax for a few days then give a trial of void. (11) Hypothyroid Status: Chronic Plan/VTE VTE Prophylaxis Ordered?: Yes Plan/Urinary Catheter Reason for insertion/continuin: Acute obstruct/retention VS, I&O, 24H, Fishbone Vital Signs/I&O Vital Signs Date Time Temp Pulse Resp B/P (MAP) Pulse Ox O2 Delivery O2 Flow Rate FiO2 08/25/16 05:25 98.1 70 18 111/71 (84) 91 Room Air I&O- Last 24 Hours up to 6 AM 08/25/16 05:59 Intake Total 1920 ml Output Total 1525 ml Balance 395 ml Laboratory Data 24H LABS Laboratory Tests 2 08/24/16 08:10: Bedside Glucose (Misc Panel) 109H 08/24/16 11:27: Bedside Glucose (Misc Panel) 175H 08/24/16 16:24: Bedside Glucose (Misc Panel) 118H 08/24/16 20:18: Bedside Glucose (Misc Panel) 130H 08/25/16 05:20: Anion Gap 6L, Glomerular Filtration Rate > 60.0, Blood Urea Nitrogen 10, Creatinine 0.70, Sodium Level 141, Potassium Level 4.2, Chloride Level 106, Carbon Dioxide Level 29, Calcium Level 8.9 CBC/BMP Laboratory Tests 08/25/16 05:20 Red Blood Count 3.77 L, Mean Corpuscular Volume 93.4, Mean Corpuscular Hemoglobin 33.1 H, Mean Corpuscular Hemoglobin Concent 35.5, Red Cell Distribution Width 12.7, Calcium Level 8.9 SEAN GRAVES MD Aug 25, 2016 08:03
[2016-08-25] MEDS: ENOXAPARIN 40 MG/0.4 ML SYRINGE (J1650) SC SCH (09:56)
[2016-08-25] MEDS: SITagliptin 50 MG TAB (JANUVIA) PO SCH (09:56)
[2016-08-25] MEDS: LITHIUM CARBONATE 150 MG CAP PO SCH ×2 (09:57→21:09)
[2016-08-25] MEDS: levOCARNitine ORAL SOLUTION 1,000 MG/10 ML (CARNITOR) PO SCH ×2 (09:57→17:30)
[2016-08-25] MEDS: GEMFIBROZIL 600 MG TAB PO SCH ×2 (09:57→21:08)
[2016-08-25] MEDS: DIVALPROEX 500MG *ER* TAB PO SCH ×2 (09:57→21:09)
[2016-08-25] MEDS: PRIMIDONE 250 MG TAB PO SCH ×2 (09:57→21:08)
[2016-08-25] MEDS: TRIHEXYPHENIDYL 2 MG TAB PO SCH ×3 (09:57→21:09)
[2016-08-25] MEDS: risperiDONE 1 MG TAB PO SCH (09:57)
[2016-08-25 14:00] VITALS: BP 109/64
[2016-08-25] MEDS: risperiDONE 2 MG TAB PO SCH (21:09)
[2016-08-25] MEDS: LATANOPROST 0.005% OPHTH SOLN 2.5 ML OD SCH (21:09)
[2016-08-25] MEDS: TAMSULOSIN 0.4 MG CAP PO SCH (21:09)
[2016-08-25 22:00] VITALS: BP 128/69
[2016-08-26] MEDS: IPRATROPIUM 0.5MG/ALBUTEROL 2.5MG INH SOL UD 3ML (DUONEB)(J7620) NEB SCH ×4 (01:41→19:49)
[2016-08-26 06:00] VITALS: BP 109/65
[2016-08-26 06:19] LABS: MEAN CORPUSCULAR HEMOGLOBIN 33.3 pg (27.0-33.0); MEAN CORPUSCULAR HGB CONC 35.5 g/dl (32.0-36.5); MEAN CORPUSCULAR VOLUME 93.5 fl (80.0-96.0); RED CELL DISTRIBUTION WIDTH 12.7 % (11.5-14.5); WHITE BLOOD COUNT 6.9 K/mm3 (4.0-10.0)
[2016-08-26] MEDS: LEVOTHYROXINE 25MCG TABLET (0.025MG) PO SCH (06:36)
[2016-08-26 06:43] LABS: ANION GAP 7 MEQ/L (8-16); BLOOD UREA NITROGEN 13 MG/DL (7-18); CALCIUM LEVEL 8.8 MG/DL (8.5-10.1); CARBON DIOXIDE LEVEL 28 MEQ/L (21-32); CHLORIDE LEVEL 110 MEQ/L (98-107); CREATININE FOR GFR 0.71 MG/DL (0.70-1.30); GLOMERULAR FILTRATION RATE > 60.0 (>56); GLUCOSE, FASTING 96 MG/DL (70-105); POTASSIUM SERUM 4.2 MEQ/L (3.5-5.1); SODIUM LEVEL 145 MEQ/L (136-145)
--- NOTE | 2016-08-26 10:19 | IPNPDOC ---
Subjective Date Seen The patient was seen on 08/26/16. Subjective Chief Complaint/HPI The patient is a 55-year-old male admitted with a reason for visit of Difficulty Walking;Digoxin Toxicity. Events since last encounter No complaints today, says feeling better, has been walking in the corridor. Objective Physical Examination General Exam: Positive: Cooperative, No Acute Distress, Other (somlonent but easily arousable. ) Eye Exam: Positive: PERRLA, Conjunctiva & lids normal, EOMI, Negative: Sclera icteric ENT Exam: Positive: Atraumatic, Mucous membr. moist/pink, Pharynx Normal Neck Exam: Positive: Supple, Negative: JVD, thyromegaly Chest Exam: Positive: Clear to auscultation, Normal air movement Heart Exam: Positive: Rate Normal, Regular Rhythm, Normal S1, Normal S2, Negative: Murmurs, Rubs Telemetry: Positive: No significant arrhythmia Abdomen Exam: Positive: Normal bowel sounds, Soft, Negative: Tenderness, Hepatospenomegaly Extremity Exam: Positive: Normal pulses, Negative: Clubbing, Cyanosis, Edema Assessment /Plan Problems (1) Toxic encephalopathy Status: Acute Problem Text: due to lithium overdose. lithium started at a lower dosage. (2) [place] toxicity Status: Acute Problem Text: patient was probably taking wrong dosage , forgetting whether he took or not then probably taking repeat dosage. he was supposed to be taking 300 mg in the AM and 600 mg in the PM. Now restarted at 150 mg bid. (3) Schizoaffective disorder Status: Chronic Problem Text: continue risperidal , trihexiphenidyl, primidone and depakote. (4) Tardive dyskinesia Status: Acute (5) Hyperlipidemia Status: Chronic (6) Hypertension Status: Chronic Problem Text: Bps running low will stop lisinopril (7) Diabetes Status: Chronic Problem Text: sugars running low , poor oral intake will stop levemir continue januvia and sliding scale of lispro. (8) Diabetic neuropathy Status: Chronic (9) Gait abnormality Status: Chronic Problem Text: multifactorial due to tardive dyskinesia , diabetic neuropathy, tremora . working with PT (10) Urinary retention Status: Acute Problem Text: Has leger now will try flomax for a few days then give a trial of void. (11) Hypothyroid Status: Chronic Plan/VTE VTE Prophylaxis Ordered?: Yes Plan/Urinary Catheter Reason for insertion/continuin: Acute obstruct/retention VS, I&O, 24H, Fishbone Vital Signs/I&O Vital Signs Date Time Temp Pulse Resp B/P (MAP) Pulse Ox O2 Delivery O2 Flow Rate FiO2 08/26/16 06:00 98.3 75 18 109/65 (80) 93 Room Air I&O- Last 24 Hours up to 6 AM 08/26/16 06:00 Intake Total 1080 ml Output Total 1050 ml Balance 30 ml Laboratory Data 24H LABS Laboratory Tests 2 08/25/16 11:33: Bedside Glucose (Misc Panel) 170H 08/25/16 16:29: Bedside Glucose (Misc Panel) 156H 08/25/16 20:20: Bedside Glucose (Misc Panel) 133H 08/26/16 05:23: Anion Gap 7L, Glomerular Filtration Rate > 60.0, Blood Urea Nitrogen 13, Creatinine 0.71, Sodium Level 145, Potassium Level 4.2, Chloride Level 110H, Carbon Dioxide Level 28, Calcium Level 8.8 CBC/BMP Laboratory Tests 08/26/16 05:23 Red Blood Count 3.67 L, Mean Corpuscular Volume 93.5, Mean Corpuscular Hemoglobin 33.3 H, Mean Corpuscular Hemoglobin Concent 35.5, Red Cell Distribution Width 12.7, Calcium Level 8.8 SEAN GRAVES MD Aug 26, 2016 10:19
[2016-08-26] MEDS: HumaLOG INSULIN (NovoLOG) PER UNIT SC SCH ×4 (10:33→20:54)
[2016-08-26] MEDS: ENOXAPARIN 40 MG/0.4 ML SYRINGE (J1650) SC SCH (10:36)
[2016-08-26] MEDS: levOCARNitine ORAL SOLUTION 1,000 MG/10 ML (CARNITOR) PO SCH ×2 (10:37→17:20)
[2016-08-26] MEDS: risperiDONE 1 MG TAB PO SCH (10:37)
[2016-08-26] MEDS: TRIHEXYPHENIDYL 2 MG TAB PO SCH ×3 (10:39→20:53)
[2016-08-26] MEDS: DIVALPROEX 500MG *ER* TAB PO SCH ×2 (10:39→20:52)
[2016-08-26] MEDS: GEMFIBROZIL 600 MG TAB PO SCH ×2 (10:39→20:52)
[2016-08-26] MEDS: SITagliptin 50 MG TAB (JANUVIA) PO SCH (10:40)
[2016-08-26] MEDS: PRIMIDONE 250 MG TAB PO SCH ×2 (10:41→20:52)
[2016-08-26] MEDS: LITHIUM CARBONATE 150 MG CAP PO SCH ×2 (10:44→20:53)
[2016-08-26 14:00] VITALS: BP 108/59
[2016-08-26] MEDS: TAMSULOSIN 0.4 MG CAP PO SCH (20:52)
[2016-08-26] MEDS: risperiDONE 2 MG TAB PO SCH (20:52)
[2016-08-26] MEDS: LATANOPROST 0.005% OPHTH SOLN 2.5 ML OD SCH (20:53)
[2016-08-26 22:00] VITALS: BP 112/76
[2016-08-27] MEDS: IPRATROPIUM 0.5MG/ALBUTEROL 2.5MG INH SOL UD 3ML (DUONEB)(J7620) NEB SCH ×4 (01:36→19:44)
[2016-08-27] MEDS: LEVOTHYROXINE 25MCG TABLET (0.025MG) PO SCH (05:37)
[2016-08-27 05:53] LABS: MEAN CORPUSCULAR HEMOGLOBIN 32.9 pg (27.0-33.0); MEAN CORPUSCULAR HGB CONC 34.6 g/dl (32.0-36.5); MEAN CORPUSCULAR VOLUME 94.8 fl (80.0-96.0); RED CELL DISTRIBUTION WIDTH 12.9 % (11.5-14.5); WHITE BLOOD COUNT 6.2 K/mm3 (4.0-10.0)
[2016-08-27 06:00] VITALS: BP 110/66
[2016-08-27 06:16] LABS: ANION GAP 6 MEQ/L (8-16); BLOOD UREA NITROGEN 14 MG/DL (7-18); CALCIUM LEVEL 8.8 MG/DL (8.5-10.1); CARBON DIOXIDE LEVEL 27 MEQ/L (21-32); CHLORIDE LEVEL 104 MEQ/L (98-107); CREATININE FOR GFR 0.65 MG/DL (0.70-1.30); GLOMERULAR FILTRATION RATE > 60.0 (>56); GLUCOSE, FASTING 93 MG/DL (70-105); POTASSIUM SERUM 4.4 MEQ/L (3.5-5.1); SODIUM LEVEL 137 MEQ/L (136-145)
[2016-08-27 06:22] LABS: LITHIUM LEVEL 0.45 MEQ/L (0.60-1.20)
[2016-08-27] MEDS: HumaLOG INSULIN (NovoLOG) PER UNIT SC SCH ×4 (07:30→21:00)
--- NOTE | 2016-08-27 09:28 | IPNPDOC ---
Subjective Date Seen The patient was seen on 08/27/16. Subjective Chief Complaint/HPI The patient is a 55-year-old male admitted with a reason for visit of Difficulty Walking;Digoxin Toxicity. General: Denies: Chills, Night Sweats Constitutional: Denies: Malaise Eyes: Denies: Vision change, Conjunctivae inflammation Skin: Denies: Rash, Lesions, Jaundice Pulmonary: Denies: Dyspnea, Cough Cardiovascular: Denies: Chest Pain, Palpitations Gastrointestinal: Denies: Nausea, Vomiting, Abdominal Pain, Diarrhea, Constipation Psych: Reports: Other Psych (schizoaffective d/o) Objective Physical Examination General Exam: Positive: Cooperative, No Acute Distress, Other (alert, conversant, difficult at times to understand due to TD) Eye Exam: Positive: PERRLA, Conjunctiva & lids normal, EOMI, Negative: Sclera icteric ENT Exam: Positive: Atraumatic, Mucous membr. moist/pink, Pharynx Normal, Tongue Midline Neck Exam: Positive: Supple, Negative: JVD, thyromegaly Chest Exam: Positive: Clear to auscultation, Normal air movement, Negative: Rhonchi, Wheezing Heart Exam: Positive: Rate Normal, Regular Rhythm, Normal S1, Normal S2, Negative: Murmurs, Rubs Telemetry: Positive: No significant arrhythmia Abdomen Exam: Positive: Normal bowel sounds, Soft, Negative: Tenderness, Hepatospenomegaly Extremity Exam: Positive: Normal pulses, Negative: Clubbing, Cyanosis, Edema Assessment /Plan Assessment PT. was visited just as he was finishing his breakfast, denied any active complaints. Still has slurring of speech, and stuttering 2/2 the host of psychiatric medications he was on and his TK. Problems (1) Toxic encephalopathy Status: Acute Problem Text: most likely 2/2 lithium toxicity, pt has been restarted on lower dose of drug. (2) [place] toxicity Status: Acute Problem Text: [place] restarted at 150 mg bid. Toxicity most likely 2/2 pt. taking wrong dosage. (3) Schizoaffective disorder Status: Chronic Problem Text: continue risperidal , trihexiphenidyl, primidone and depakote. (4) Tardive dyskinesia Status: Acute Response to Treatment: Stable (5) Hyperlipidemia Status: Chronic Response to Treatment: Stable (6) Hypertension Status: Chronic Problem Text: Bps running low will stop lisinopril (7) Diabetes Status: Chronic Problem Text: continue januvia and sliding scale of lispro. (8) Diabetic neuropathy Status: Chronic (9) Gait abnormality Status: Chronic Problem Text: multifactorial due to tardive dyskinesia , diabetic neuropathy, tremora . working with PT for further evaluation of pt. (10) Urinary retention Status: Acute Problem Text: Will continue with leger cath will try flomax for a week then give a trial of void. (11) Hypothyroid Status: Chronic Plan/VTE VTE Prophylaxis Ordered?: Yes Plan/Urinary Catheter Reason for insertion/continuin: Acute obstruct/retention VS, I&O, 24H, Fishbone Vital Signs/I&O Vital Signs Date Time Temp Pulse Resp B/P (MAP) Pulse Ox O2 Delivery O2 Flow Rate FiO2 08/27/16 06:00 97.8 69 19 110/66 (81) 94 Room Air I&O- Last 24 Hours up to 6 AM 08/27/16 06:00 Intake Total 2455 ml Output Total 2600 ml Balance -145 ml Laboratory Data 24H LABS Laboratory Tests 2 08/26/16 11:17: Bedside Glucose (Misc Panel) 156H 08/26/16 16:13: Bedside Glucose (Misc Panel) 136H 08/26/16 19:45: Bedside Glucose (Misc Panel) 137H 08/27/16 05:16: Anion Gap 6L, Glomerular Filtration Rate > 60.0, Blood Urea Nitrogen 14, Creatinine 0.65L, Sodium Level 137#, Potassium Level 4.4, Chloride Level 104, Carbon Dioxide Level 27, Calcium Level 8.8, [place] Level 0.45L CBC/BMP Laboratory Tests 08/27/16 05:16 Red Blood Count 3.87 L, Mean Corpuscular Volume 94.8, Mean Corpuscular Hemoglobin 32.9, Mean Corpuscular Hemoglobin Concent 34.6, Red Cell Distribution Width 12.9, Calcium Level 8.8 GME ATTESTATION GME ATTESTATION My preceptor for this patient encounter was physically present in the building during the encounter and was fully available. As needed, all aspects of the patient interview, examination, medical decision making process, and medical care plan development were reviewed and approved by the preceptor. Preceptor is aware and concurs with the plan as stated in the body of this note and will attest to such by his/her cosignature. CHICO HINES DO Aug 27, 2016 09:28
[2016-08-27] MEDS: GEMFIBROZIL 600 MG TAB PO SCH ×2 (10:00→21:08)
[2016-08-27] MEDS: TRIHEXYPHENIDYL 2 MG TAB PO SCH ×3 (10:00→21:09)
[2016-08-27] MEDS: LITHIUM CARBONATE 150 MG CAP PO SCH ×2 (10:00→21:08)
[2016-08-27] MEDS: risperiDONE 1 MG TAB PO SCH (10:00)
[2016-08-27] MEDS: SITagliptin 50 MG TAB (JANUVIA) PO SCH (10:00)
[2016-08-27] MEDS: PRIMIDONE 250 MG TAB PO SCH ×2 (10:00→21:09)
[2016-08-27] MEDS: DIVALPROEX 500MG *ER* TAB PO SCH ×2 (10:01→21:09)
[2016-08-27] MEDS: levOCARNitine ORAL SOLUTION 1,000 MG/10 ML (CARNITOR) PO SCH ×2 (10:01→17:00)
[2016-08-27] MEDS: ENOXAPARIN 40 MG/0.4 ML SYRINGE (J1650) SC SCH (10:01)
[2016-08-27 10:42] VITALS: BP 121/69
[2016-08-27 13:45] VITALS: BP 130/65
[2016-08-27] MEDS: LATANOPROST 0.005% OPHTH SOLN 2.5 ML OD SCH (21:09)
[2016-08-27] MEDS: TAMSULOSIN 0.4 MG CAP PO SCH (21:09)
[2016-08-27] MEDS: risperiDONE 2 MG TAB PO SCH (21:09)
[2016-08-27 22:00] VITALS: BP 118/71
[2016-08-28 00:06] LABS: PHENOBARBITAL (PRIMIDONE) 21 ug/mL (15-40)
[2016-08-28] MEDS: IPRATROPIUM 0.5MG/ALBUTEROL 2.5MG INH SOL UD 3ML (DUONEB)(J7620) NEB SCH ×5 (01:21→23:44)
[2016-08-28] MEDS: LEVOTHYROXINE 25MCG TABLET (0.025MG) PO SCH (05:40)
[2016-08-28 06:00] VITALS: BP 125/79
[2016-08-28 06:37] LABS: MEAN CORPUSCULAR HEMOGLOBIN 33.2 pg (27.0-33.0); MEAN CORPUSCULAR HGB CONC 34.7 g/dl (32.0-36.5); MEAN CORPUSCULAR VOLUME 95.9 fl (80.0-96.0)
[2016-08-28 06:57] LABS: ANION GAP 7 MEQ/L (8-16); BLOOD UREA NITROGEN 12 MG/DL (7-18); CALCIUM LEVEL 8.9 MG/DL (8.5-10.1); CARBON DIOXIDE LEVEL 27 MEQ/L (21-32); CHLORIDE LEVEL 105 MEQ/L (98-107); CREATININE FOR GFR 0.71 MG/DL (0.70-1.30); GLOMERULAR FILTRATION RATE > 60.0 (>56); GLUCOSE, FASTING 102 MG/DL (70-105); POTASSIUM SERUM 4.1 MEQ/L (3.5-5.1); SODIUM LEVEL 139 MEQ/L (136-145)
[2016-08-28] MEDS: HumaLOG INSULIN (NovoLOG) PER UNIT SC SCH ×4 (08:19→21:00)
[2016-08-28 08:50] VITALS: BP 132/81
[2016-08-28] MEDS: levOCARNitine ORAL SOLUTION 1,000 MG/10 ML (CARNITOR) PO SCH ×2 (09:30→17:19)
[2016-08-28] MEDS: ENOXAPARIN 40 MG/0.4 ML SYRINGE (J1650) SC SCH (09:32)
[2016-08-28] MEDS: SENOKOT S TAB PO SCH ×2 (09:32→21:22)
[2016-08-28] MEDS: GEMFIBROZIL 600 MG TAB PO SCH ×2 (09:32→21:23)
[2016-08-28] MEDS: SITagliptin 50 MG TAB (JANUVIA) PO SCH (09:33)
[2016-08-28] MEDS: TRIHEXYPHENIDYL 2 MG TAB PO SCH ×3 (09:34→21:23)
[2016-08-28] MEDS: risperiDONE 1 MG TAB PO SCH (09:34)
[2016-08-28] MEDS: PRIMIDONE 250 MG TAB PO SCH ×2 (09:34→21:25)
[2016-08-28] MEDS: DIVALPROEX 500MG *ER* TAB PO SCH ×2 (09:34→21:22)
[2016-08-28] MEDS: LITHIUM CARBONATE 150 MG CAP PO SCH ×2 (09:35→21:23)
--- NOTE | 2016-08-28 10:50 | IPNPDOC ---
Subjective Date Seen The patient was seen on 08/28/16. Subjective Chief Complaint/HPI The patient is a 55-year-old male admitted with a reason for visit of Difficulty Walking;Digoxin Toxicity. General: Denies: Chills, Night Sweats Constitutional: Denies: Chills Eyes: Denies: Vision change, Conjunctivae inflammation Cardiovascular: Denies: Chest Pain, Palpitations, Orthopnea Gastrointestinal: Denies: Nausea, Vomiting, Abdominal Pain, Diarrhea, Constipation Genitourinary: Denies: Dysuria Psych: Reports: Other Psych (schizoaffective) Objective Physical Examination General Exam: Positive: Cooperative, No Acute Distress, Other (alert, conversant, difficult at times to understand due to TD) Eye Exam: Positive: PERRLA, Conjunctiva & lids normal, EOMI, Negative: Sclera icteric ENT Exam: Positive: Atraumatic, Mucous membr. moist/pink, Pharynx Normal, Tongue Midline Neck Exam: Positive: Supple, Negative: JVD, thyromegaly Chest Exam: Positive: Clear to auscultation, Normal air movement, Negative: Rhonchi, Wheezing Heart Exam: Positive: Rate Normal, Regular Rhythm, Normal S1, Normal S2, Negative: Murmurs, Rubs Telemetry: Positive: No significant arrhythmia Abdomen Exam: Positive: Normal bowel sounds, Soft, Negative: Tenderness, Hepatospenomegaly Extremity Exam: Positive: Normal pulses, Negative: Clubbing, Cyanosis, Edema Assessment /Plan Problems (1) Toxic encephalopathy Status: Acute Problem Text: most likely 2/2 lithium toxicity, pt has been restarted on lower dose of drug lithium level .45 one day ago will continue to monitor levels (2) [place] toxicity Status: Acute Problem Text: [place] restarted at 150 mg bid. Toxicity most likely 2/2 pt. taking wrong dosage. (3) Schizoaffective disorder Status: Chronic Problem Text: continue risperidal , trihexiphenidyl, primidone and depakote. (4) Tardive dyskinesia Status: Acute Response to Treatment: Stable (5) Hyperlipidemia Status: Chronic Response to Treatment: Stable (6) Hypertension Status: Chronic Problem Text: 132/81 stable will continue to hold lisinopril (7) Diabetes Status: Chronic Problem Text: continue januvia and sliding scale of lispro. (8) Diabetic neuropathy Status: Chronic (9) Gait abnormality Status: Chronic Problem Text: multifactorial due to tardive dyskinesia , diabetic neuropathy, tremora . working with PT for further evaluation of pt. (10) Urinary retention Status: Acute Problem Text: Will continue with leger cath will try flomax for a week then give a trial of void. (11) Hypothyroid Status: Chronic Problem Text: c/w Synthroid Plan/VTE VTE Prophylaxis Ordered?: Yes Plan/Urinary Catheter Reason for insertion/continuin: Acute obstruct/retention VS, I&O, 24H, Fishbone Vital Signs/I&O Vital Signs Date Time Temp Pulse Resp B/P (MAP) Pulse Ox O2 Delivery O2 Flow Rate FiO2 08/28/16 10:27 Room Air 08/28/16 08:50 98.6 86 12 132/81 (98) 95 I&O- Last 24 Hours up to 6 AM 08/28/16 06:00 Intake Total 2580 ml Output Total 2550 ml Balance 30 ml Laboratory Data 24H LABS Laboratory Tests 2 08/27/16 11:33: Bedside Glucose (Misc Panel) 151H 08/27/16 16:53: Bedside Glucose (Misc Panel) 119H 08/27/16 19:40: Bedside Glucose (Misc Panel) 161H 08/28/16 05:57: Anion Gap 7L, Glomerular Filtration Rate > 60.0, Blood Urea Nitrogen 12, Creatinine 0.71, Sodium Level 139, Potassium Level 4.1, Chloride Level 105, Carbon Dioxide Level 27, Calcium Level 8.9 CBC/BMP Laboratory Tests 08/28/16 05:57 Red Blood Count 3.75 L, Mean Corpuscular Volume 95.9, Mean Corpuscular Hemoglobin 33.2 H, Mean Corpuscular Hemoglobin Concent 34.7, Red Cell Distribution Width 13.0, Calcium Level 8.9 GME ATTESTATION GME ATTESTATION My preceptor for this patient encounter was physically present in the building during the encounter and was fully available. As needed, all aspects of the patient interview, examination, medical decision making process, and medical care plan development were reviewed and approved by the preceptor. Preceptor is aware and concurs with the plan as stated in the body of this note and will attest to such by his/her cosignature. CHICO HINES DO Aug 28, 2016 10:50
[2016-08-28 13:45] VITALS: BP 119/72
[2016-08-28] MEDS: risperiDONE 2 MG TAB PO SCH (21:22)
[2016-08-28] MEDS: TAMSULOSIN 0.4 MG CAP PO SCH (21:22)
[2016-08-28] MEDS: LATANOPROST 0.005% OPHTH SOLN 2.5 ML OD SCH (21:22)
[2016-08-28 22:00] VITALS: BP 106/66
[2016-08-29] MEDS: LEVOTHYROXINE 25MCG TABLET (0.025MG) PO SCH (05:56)
[2016-08-29 06:00] VITALS: BP 115/72
[2016-08-29 06:15] LABS: MEAN CORPUSCULAR HEMOGLOBIN 32.9 pg (27.0-33.0); MEAN CORPUSCULAR HGB CONC 34.2 g/dl (32.0-36.5); MEAN CORPUSCULAR VOLUME 96.1 fl (80.0-96.0); RED CELL DISTRIBUTION WIDTH 13.2 % (11.5-14.5); WHITE BLOOD COUNT 5.7 K/mm3 (4.0-10.0)
[2016-08-29 06:24] LABS: ANION GAP 6 MEQ/L (8-16); BLOOD UREA NITROGEN 12 MG/DL (7-18); CALCIUM LEVEL 8.6 MG/DL (8.5-10.1); CARBON DIOXIDE LEVEL 27 MEQ/L (21-32); CHLORIDE LEVEL 103 MEQ/L (98-107); CREATININE FOR GFR 0.75 MG/DL (0.70-1.30); GLOMERULAR FILTRATION RATE > 60.0 (>56); GLUCOSE, FASTING 104 MG/DL (70-105); POTASSIUM SERUM 4.3 MEQ/L (3.5-5.1); SODIUM LEVEL 136 MEQ/L (136-145)
[2016-08-29] MEDS: IPRATROPIUM 0.5MG/ALBUTEROL 2.5MG INH SOL UD 3ML (DUONEB)(J7620) NEB SCH ×3 (07:07→19:17)
[2016-08-29] MEDS: HumaLOG INSULIN (NovoLOG) PER UNIT SC SCH ×4 (07:43→21:00)
--- NOTE | 2016-08-29 08:31 | IPNPDOC ---
Subjective Date Seen The patient was seen on 08/29/16. Subjective Chief Complaint/HPI The patient is a 55-year-old male admitted with a reason for visit of Difficulty Walking;Digoxin Toxicity. General: Denies: Chills, Night Sweats Constitutional: Denies: Fever, Malaise Eyes: Denies: Conjunctivae inflammation Skin: Denies: Rash, Lesions, Jaundice Cardiovascular: Denies: Chest Pain, Palpitations Gastrointestinal: Denies: Nausea, Vomiting, Abdominal Pain Genitourinary: Denies: Dysuria Neurological: Denies: Weakness Psych: Reports: Other Psych (schizoaffective) Objective Physical Examination General Exam: Positive: Cooperative, No Acute Distress, Other (alert, conversant, difficult at times to understand as speech is garbled) Eye Exam: Positive: PERRLA, Conjunctiva & lids normal, EOMI, Negative: Sclera icteric ENT Exam: Positive: Atraumatic, Mucous membr. moist/pink, Pharynx Normal, Tongue Midline Neck Exam: Positive: Supple, Negative: JVD, thyromegaly Chest Exam: Positive: Clear to auscultation, Normal air movement, Negative: Rhonchi, Wheezing Heart Exam: Positive: Rate Normal, Regular Rhythm, Normal S1, Normal S2, Negative: Murmurs, Rubs Telemetry: Positive: No significant arrhythmia Abdomen Exam: Positive: Normal bowel sounds, Soft, Negative: Tenderness, Hepatospenomegaly Extremity Exam: Positive: Normal pulses, Negative: Clubbing, Cyanosis, Edema Assessment /Plan Problems (1) Toxic encephalopathy Status: Acute Problem Text: most likely 2/2 lithium toxicity, pt has been restarted on lower dose of drug lithium level .45 one day ago, will consider increasing dose to 150 AM and 350 PM Will attempt to contact pts psychiatrist again in regards to outpt f/u will continue to monitor levels (2) [place] toxicity Status: Acute Problem Text: [place] restarted at 150 mg bid. Toxicity most likely 2/2 pt. taking wrong dosage. Will consider increasing dose today (3) Schizoaffective disorder Status: Chronic Problem Text: continue risperidal , trihexiphenidyl, primidone and depakote. (4) Tardive dyskinesia Status: Acute Response to Treatment: Stable (5) Hyperlipidemia Status: Chronic Response to Treatment: Stable (6) Hypertension Status: Chronic Problem Text: 115/72 stable will continue to hold lisinopril (7) Diabetes Status: Chronic Problem Text: continue januvia and sliding scale of lispro. (8) Diabetic neuropathy Status: Chronic (9) Gait abnormality Status: Chronic Problem Text: multifactorial due to tardive dyskinesia , diabetic neuropathy, tremora . PT for further evaluation of pt. (10) Urinary retention Status: Acute Problem Text: Will continue with leger cath will try flomax for a week then give a trial of void. (11) Hypothyroid Status: Chronic Problem Text: c/w Synthroid Plan/VTE VTE Prophylaxis Ordered?: Yes Plan/Urinary Catheter Reason for insertion/continuin: Acute obstruct/retention VS, I&O, 24H, Fishbone Vital Signs/I&O Vital Signs Date Time Temp Pulse Resp B/P (MAP) Pulse Ox O2 Delivery O2 Flow Rate FiO2 08/29/16 06:00 97.5 68 16 115/72 (86) 97 Room Air I&O- Last 24 Hours up to 6 AM 08/29/16 06:00 Intake Total 1640 ml Output Total 2625 ml Balance -985 ml Laboratory Data 24H LABS Laboratory Tests 2 08/28/16 11:31: Bedside Glucose (Misc Panel) 191H 08/29/16 05:44: Anion Gap 6L, Glomerular Filtration Rate > 60.0, Blood Urea Nitrogen 12, Creatinine 0.75, Sodium Level 136, Potassium Level 4.3, Chloride Level 103, Carbon Dioxide Level 27, Calcium Level 8.6 CBC/BMP Laboratory Tests 08/29/16 05:44 Red Blood Count 3.94 L, Mean Corpuscular Volume 96.1 H, Mean Corpuscular Hemoglobin 32.9, Mean Corpuscular Hemoglobin Concent 34.2, Red Cell Distribution Width 13.2, Calcium Level 8.6 GME ATTESTATION GME ATTESTATION My preceptor for this patient encounter was physically present in the building during the encounter and was fully available. As needed, all aspects of the patient interview, examination, medical decision making process, and medical care plan development were reviewed and approved by the preceptor. Preceptor is aware and concurs with the plan as stated in the body of this note and will attest to such by his/her cosignature. CHICO HINES DO Aug 29, 2016 08:31
[2016-08-29] MEDS: levOCARNitine ORAL SOLUTION 1,000 MG/10 ML (CARNITOR) PO SCH ×2 (10:03→17:19)
[2016-08-29] MEDS: ENOXAPARIN 40 MG/0.4 ML SYRINGE (J1650) SC SCH (10:04)
[2016-08-29] MEDS: risperiDONE 1 MG TAB PO SCH (10:04)
[2016-08-29] MEDS: TRIHEXYPHENIDYL 2 MG TAB PO SCH ×3 (10:04→21:09)
[2016-08-29] MEDS: PRIMIDONE 250 MG TAB PO SCH ×2 (10:04→21:13)
[2016-08-29] MEDS: GEMFIBROZIL 600 MG TAB PO SCH ×2 (10:05→21:09)
[2016-08-29] MEDS: SENOKOT S TAB PO SCH ×2 (10:05→21:10)
[2016-08-29] MEDS: SITagliptin 50 MG TAB (JANUVIA) PO SCH (10:05)
[2016-08-29] MEDS: LITHIUM CARBONATE 150 MG CAP PO SCH ×2 (10:05→21:13)
[2016-08-29] MEDS: DIVALPROEX 500MG *ER* TAB PO SCH ×2 (10:06→21:11)
[2016-08-29 14:00] VITALS: BP 112/69
[2016-08-29] MEDS: TAMSULOSIN 0.4 MG CAP PO SCH (21:11)
[2016-08-29] MEDS: LATANOPROST 0.005% OPHTH SOLN 2.5 ML OD SCH (21:13)
[2016-08-29] MEDS: risperiDONE 2 MG TAB PO SCH (21:19)
[2016-08-29 22:00] VITALS: BP 121/71
[2016-08-30] MEDS: IPRATROPIUM 0.5MG/ALBUTEROL 2.5MG INH SOL UD 3ML (DUONEB)(J7620) NEB SCH ×4 (01:28→19:55)
[2016-08-30] MEDS ORDERED: FLEET ENEMA PR PRN (04:30)
[2016-08-30 06:00] VITALS: BP 112/69
[2016-08-30] MEDS: LEVOTHYROXINE 25MCG TABLET (0.025MG) PO SCH (06:05)
[2016-08-30 07:25] LABS: MEAN CORPUSCULAR HEMOGLOBIN 32.8 pg (27.0-33.0); MEAN CORPUSCULAR HGB CONC 34.5 g/dl (32.0-36.5); MEAN CORPUSCULAR VOLUME 95.1 fl (80.0-96.0); RED CELL DISTRIBUTION WIDTH 12.9 % (11.5-14.5); WHITE BLOOD COUNT 5.3 K/mm3 (4.0-10.0)
[2016-08-30] MEDS: HumaLOG INSULIN (NovoLOG) PER UNIT SC SCH ×4 (07:30→21:00)
[2016-08-30 08:00] LABS: BLOOD UREA NITROGEN 12 MG/DL (7-18); CREATININE FOR GFR 0.72 MG/DL (0.70-1.30); GLOMERULAR FILTRATION RATE > 60.0 (>56); GLUCOSE, FASTING 105 MG/DL (70-105)
[2016-08-30 08:01] LABS: ANION GAP 6 MEQ/L (8-16); CALCIUM LEVEL 8.7 MG/DL (8.5-10.1); CARBON DIOXIDE LEVEL 28 MEQ/L (21-32); CHLORIDE LEVEL 104 MEQ/L (98-107); POTASSIUM SERUM 4.2 MEQ/L (3.5-5.1); SODIUM LEVEL 138 MEQ/L (136-145)
--- NOTE | 2016-08-30 08:27 | IPNPDOC ---
Subjective Date Seen The patient was seen on 08/30/16. Subjective Chief Complaint/HPI The patient is a 55-year-old male admitted with a reason for visit of Difficulty Walking, [place] Toxicity. General: Denies: Chills, Night Sweats Constitutional: Denies: Chills, Fever Eyes: Denies: Vision change, Conjunctivae inflammation ENT: Denies: Head Aches Skin: Denies: Rash, Lesions Pulmonary: Denies: Dyspnea, Cough Gastrointestinal: Denies: Nausea, Vomiting Genitourinary: Denies: Dysuria, Frequency Neurological: Denies: Weakness, Numbness Psych: Reports: Other Psych (schizoaffective ) Objective Physical Examination General Exam: Positive: Cooperative, No Acute Distress, Other (alert, conversant, difficult at times to understand as speech is garbled) Eye Exam: Positive: PERRLA, Conjunctiva & lids normal, EOMI, Negative: Sclera icteric ENT Exam: Positive: Atraumatic, Mucous membr. moist/pink, Pharynx Normal, Tongue Midline Neck Exam: Positive: Supple, Negative: JVD, thyromegaly Chest Exam: Positive: Clear to auscultation, Normal air movement, Negative: Rhonchi, Wheezing Heart Exam: Positive: Rate Normal, Regular Rhythm, Normal S1, Normal S2, Negative: Murmurs, Rubs Telemetry: Positive: No significant arrhythmia Abdomen Exam: Positive: Normal bowel sounds, Soft, Negative: Tenderness, Hepatospenomegaly Extremity Exam: Positive: Normal pulses, Negative: Clubbing, Cyanosis, Edema Assessment /Plan Problems (1) Toxic encephalopathy Status: Acute Problem Text: most likely 2/2 lithium toxicity, pt has been restarted on lower dose of drug lithium level .45 one day ago, lithium 150 mg BID, will check another lithium level today Will attempt to contact pts psychiatrist again in regards to outpt f/u (2) [place] toxicity Status: Acute Problem Text: [place] restarted at 150 mg bid. Toxicity most likely 2/2 pt. taking wrong dosage. Currently lithium 150 mg BID will recheck lithium level today (3) Schizoaffective disorder Status: Chronic Problem Text: continue risperidal , trihexiphenidyl, primidone and depakote. (4) Tardive dyskinesia Status: Acute Response to Treatment: Stable (5) Hyperlipidemia Status: Chronic Response to Treatment: Stable (6) Hypertension Status: Chronic Problem Text: 112/69 stable will continue to hold lisinopril (7) Diabetes Status: Chronic Problem Text: continue januvia and sliding scale of lispro. (8) Diabetic neuropathy Status: Chronic (9) Gait abnormality Status: Chronic Problem Text: multifactorial due to tardive dyskinesia , diabetic neuropathy, tremora . will have PT for further evaluation of pt. (10) Urinary retention Status: Acute Problem Text: Will continue with leger cath will try flomax for a week then give a trial of void. (11) Hypothyroid Status: Chronic Problem Text: c/w Synthroid Plan/VTE VTE Prophylaxis Ordered?: Yes Plan/Urinary Catheter Reason for insertion/continuin: Acute obstruct/retention VS, I&O, 24H, Fishbone Vital Signs/I&O Vital Signs Date Time Temp Pulse Resp B/P (MAP) Pulse Ox O2 Delivery O2 Flow Rate FiO2 08/30/16 06:00 97.7 73 28 112/69 (83) 97 Room Air I&O- Last 24 Hours up to 6 AM 08/30/16 05:59 Intake Total 2640 ml Output Total 1850 ml Balance 790 ml Laboratory Data 24H LABS Laboratory Tests 2 08/29/16 11:47: Bedside Glucose (Misc Panel) 173H 08/29/16 17:03: Bedside Glucose (Misc Panel) 129H 08/29/16 20:35: Bedside Glucose (Misc Panel) 203H 08/30/16 06:54: Bedside Glucose (Misc Panel) 100 08/30/16 07:08: Anion Gap 6L, Glomerular Filtration Rate > 60.0, Blood Urea Nitrogen 12, Creatinine 0.72, Sodium Level 138, Potassium Level 4.2, Chloride Level 104, Carbon Dioxide Level 28, Calcium Level 8.7, [place] Level 0.36L CBC/BMP Laboratory Tests 08/30/16 07:08 Red Blood Count 3.79 L, Mean Corpuscular Volume 95.1, Mean Corpuscular Hemoglobin 32.8, Mean Corpuscular Hemoglobin Concent 34.5, Red Cell Distribution Width 12.9, Calcium Level 8.7 GME ATTESTATION GME ATTESTATION My preceptor for this patient encounter was physically present in the building during the encounter and was fully available. As needed, all aspects of the patient interview, examination, medical decision making process, and medical care plan development were reviewed and approved by the preceptor. Preceptor is aware and concurs with the plan as stated in the body of this note and will attest to such by his/her cosignature. CHICO HINES DO Aug 30, 2016 08:27
[2016-08-30] MEDS: PRIMIDONE 250 MG TAB PO SCH ×2 (09:00→21:44)
[2016-08-30] MEDS: ENOXAPARIN 40 MG/0.4 ML SYRINGE (J1650) SC SCH (09:34)
[2016-08-30] MEDS: levOCARNitine ORAL SOLUTION 1,000 MG/10 ML (CARNITOR) PO SCH ×2 (09:34→17:18)
[2016-08-30] MEDS: SITagliptin 50 MG TAB (JANUVIA) PO SCH (09:35)
[2016-08-30] MEDS: TRIHEXYPHENIDYL 2 MG TAB PO SCH ×3 (09:35→21:45)
[2016-08-30] MEDS: SENOKOT S TAB PO SCH ×2 (09:35→21:47)
[2016-08-30] MEDS: risperiDONE 1 MG TAB PO SCH (09:36)
[2016-08-30] MEDS: DOCUSATE SODIUM 100 MG CAP PO SCH ×2 (09:36→21:46)
[2016-08-30] MEDS: DIVALPROEX 500MG *ER* TAB PO SCH ×2 (09:36→21:45)
[2016-08-30] MEDS: GEMFIBROZIL 600 MG TAB PO SCH ×2 (09:36→21:47)
[2016-08-30] MEDS: LITHIUM CARBONATE 150 MG CAP PO SCH (09:44)
[2016-08-30 14:00] VITALS: BP 145/81
[2016-08-30] MEDS: TAMSULOSIN 0.4 MG CAP PO SCH (21:44)
[2016-08-30] MEDS: LITHIUM CARBONATE 300 MG CAP PO SCH (21:46)
[2016-08-30] MEDS: risperiDONE 2 MG TAB PO SCH (21:47)
[2016-08-30] MEDS: LATANOPROST 0.005% OPHTH SOLN 2.5 ML OD SCH (21:48)
[2016-08-30 22:00] VITALS: BP 118/68
[2016-08-31] MEDS: IPRATROPIUM 0.5MG/ALBUTEROL 2.5MG INH SOL UD 3ML (DUONEB)(J7620) NEB SCH ×2 (02:00→07:15)
[2016-08-31] MEDS: LEVOTHYROXINE 25MCG TABLET (0.025MG) PO SCH (05:30)
[2016-08-31 06:00] VITALS: BP 119/75
[2016-08-31] MEDS: risperiDONE 1 MG TAB PO SCH (08:17)
[2016-08-31] MEDS: HumaLOG INSULIN (NovoLOG) PER UNIT SC SCH ×2 (08:17→12:41)
[2016-08-31] MEDS: SITagliptin 50 MG TAB (JANUVIA) PO SCH (08:17)
[2016-08-31] MEDS: DIVALPROEX 500MG *ER* TAB PO SCH ×2 (08:18→20:44)
[2016-08-31] MEDS: GEMFIBROZIL 600 MG TAB PO SCH ×2 (08:18→20:17)
[2016-08-31] MEDS: LITHIUM CARBONATE 150 MG CAP PO SCH (08:18)
[2016-08-31] MEDS: TRIHEXYPHENIDYL 2 MG TAB PO SCH ×3 (08:18→20:17)
[2016-08-31] MEDS: DOCUSATE SODIUM 100 MG CAP PO SCH ×2 (08:18→20:17)
[2016-08-31] MEDS: SENOKOT S TAB PO SCH ×2 (08:18→20:17)
[2016-08-31] MEDS: PRIMIDONE 250 MG TAB PO SCH ×2 (08:19→20:18)
[2016-08-31] MEDS: ENOXAPARIN 40 MG/0.4 ML SYRINGE (J1650) SC SCH (08:19)
[2016-08-31] MEDS: levOCARNitine ORAL SOLUTION 1,000 MG/10 ML (CARNITOR) PO SCH ×2 (08:20→18:35)
--- NOTE | 2016-08-31 09:34 | DS.PDOC ---
Discharge Summary General Date of Admission Aug 20, 2016 at 19:25 Date of Discharge 08-31-16 Discharge Summary D.C. Date 08-31-16 Specialists seen: Dr. Carole TIERNEY MD. Procedures during stay: None Admitting diagnoses: 1. Toxic encephalopathy. 2. [place] toxicity. 3. Difficulty ambulating. 4. History of diabetes, controlled. 5. History of hypertension, stable. 6. History of schizoaffective disorder. PROCEDURES PERFORMED DURING STAY: None DISCHARGE DIAGNOSES: 1.Toxic encephalopathy 2. [place] toxicity 3. Acute Urinary retention resolved 4.Gait instability 5. Schizoaffective disorder 6.Tardive Dyskinesia 7. Aphasia 8. Diabetes 9. Hypertension 10. Hyperlipidemia 11. Hypothyroid COMPLICATIONS/CHIEF COMPLAINT: Difficulty Walking, [place] Toxicity. HISTORY OF PRESENT ILLNESS: 55-year-old male with past medical history of tardive dyskinesia, schizoaffective disorder, expressive aphasia presented with about a 10 day history of confusion, impaired balance, slurred speech, disorientation and difficulty ambulating. [place] level 1.86 on presentation. HOSPITAL COURSE: During the course of his stay, [place] was held and then gradually restarted with close check on levels. The pt also had an episode with urinary retention of which he had to have leger placed and flomax initiated. On day of d/c he appeard well, dig. level one day prior was .36, he had his leger removed one day prior and was doing well with voids, patient was positive 3 L one day ago. Pt was cleared by PT to return home. DISCHARGE MEDICATIONS: Please see below. ALLERGIES: Please see below. PHYSICAL EXAMINATION ON DISCHARGE: VITAL SIGNS: Please see below. GENERAL: pleasant, TD affects speech which is garbled but still comprehensible, in no distress HEENT: Nares patent b/l, neck supple, EOMI, moist mucus membranes, trachea midline CARDIOVASCULAR EXAMINATION: normal s1 and s2, no murmurs or gallops appreciated RESPIRATORY EXAMINATION: no wheezing, rales or rhonchi appreciated ABDOMINAL EXAMINATION: nabsx4, non-distended, no organomegaly, no rebound ridgity or guarding appreciated EXTREMITIES: no cyanosis, edema or clubbing appreciated SKIN: intact NEUROLOGICAL EXAMINATION: no focal deficits appreciated PSYCHIATRIC EXAMINATION: schizoaffective LABORATORY DATA: Please see below. IMAGING: Head CT 08-20-16 Impression: No change from prior examination. Low density area within the left frontal lobe remains stable. No new acute intracranial process identified. Brain MRI 08-20-16 Impression: 1. Moderately severe age-related atrophy, most prominent in the posterior parietal and occipital lobes bilaterally. 2. Large area of subcortical white matter changes in the left frontal lobe. Mildbilateral subcortical white matter changes are also appreciated. No evidence of restricted diffusion to suggest acute infarct however. The findings most likely represent chronic small vessel ischemic disease. PROGNOSIS: Stable ACTIVITY: As tolerated DIET: As tolerated DISCHARGE PLAN: Stable to home DISPOSITION: Home DISCHARGE INSTRUCTIONS: 1. D/c home ITEMS TO FOLLOWUP ON ON OUTPATIENT: 1. Follow with PCP and psychiatry within one week of d.c DISCHARGE CONDITION: Stable. TIME SPENT ON DISCHARGE: Greater than 20 minutes. Vital Signs/I&Os Vital Signs Date Time Temp Pulse Resp B/P (MAP) Pulse Ox O2 Delivery O2 Flow Rate FiO2 08/31/16 06:00 98.8 71 19 119/75 (90) 95 Room Air I&O- Last 24 Hours up to 6 AM 08/31/16 06:00 Intake Total 3120 ml Output Total 3600 ml Balance -480 ml Laboratory Data Labs 24H Laboratory Tests 2 08/30/16 12:01: Bedside Glucose (Misc Panel) 136H 08/30/16 16:56: Bedside Glucose (Misc Panel) 144H 08/30/16 20:02: Bedside Glucose (Misc Panel) 148H 08/31/16 05:24: Bedside Glucose (Misc Panel) 107H FSBS Laboratory Tests Test 08/30/16 12:01 08/30/16 16:56 08/30/16 20:02 08/31/16 05:24 Range/Units Bedside Glucose (Misc Panel) 136 144 148 107 70-105 MG/DL Discharge Medications Scheduled (Risperidone) 1 Mg Tab, 1 MG PO QAM, (Reported) PT TAKES ALL MEDS WITH APPLESAUCE (Esomeprazole Magnesium) 40 Mg Cap, 40 MG PO DAILY, (Reported) PT TAKES ALL MEDS WITH APPLESAUCE (Senna Plus 8.6-50 mg) 1 Tab Tab, 1 TAB PO BID Divalproex Sodium (Divalproex Sodium ER) 500 Mg Tab, 500 MG PO BID, (Reported) PT TAKES ALL MEDS WITH APPLESAUCE Gemfibrozil (Gemfibrozil) 600 Mg Tab, 600 MG PO BID, (Reported) PT TAKES ALL MEDS WITH APPLESAUCE Insulin Detemir (Levemir Flextouch) 100 Unit/Ml Inj, 10 UNIT SC DAILY Latanoprost (Latanoprost) 50 Drop/2.5 Ml Soln, 1 DROP OD QHS, (Reported) Levocarnitine Fumarate (Carnitine) 250 Mg Cap, 250 MG PO BID, (Reported) PT TAKES ALL MEDS WITH APPLESAUCE Levothyroxine Sodium (Synthroid) 25 Mcg Tab, 25 MCG PO DAILY, (Reported) PT TAKES ALL MEDS WITH APPLESAUCE Lisinopril (Lisinopril) 5 Mg Tab, 5 MG PO DAILY, (Reported) PT TAKES ALL MEDS WITH APPLESAUCE [place] Carbonate ([place] Carbonate) 300 Mg Cap, 300 MG PO QHS [place] Carbonate ([place] Carbonate) 150 Mg Cap, 150 MG PO DAILY Primidone (Primidone) 250 Mg Tab, 250 MG PO BID, (Reported) PT TAKES ALL MEDS WITH APPLESAUCE Risperidone (Risperdal) 4 Mg Tab, 4 MG PO QHS, (Reported) PT TAKES ALL MEDS WITH APPLESAUCE Sitagliptin Phosphate (Januvia) 100 Mg Tab, 100 MG PO DAILY, (Reported) PT TAKES ALL MEDS WITH APPLESAUCE Tamsulosin Hydrochloride (Flomax) 0.4 Mg Cap, 0.4 MG PO QHS Trihexyphenidyl HCl (Trihexyphenidyl HCl) 2 Mg Tab, 2 MG PO TID, (Reported) PT TAKES ALL MEDS WITH APPLESAUCE Allergies Coded Allergies: No Known Drug Allergy (Verified Allergy, Unknown, 08/20/16) E ATTESTATION [facility] ATTESTATION My preceptor for this patient encounter was physically present in the building during the encounter and was fully available. As needed, all aspects of the patient interview, examination, medical decision making process, and medical care plan development were reviewed and approved by the preceptor. Preceptor is aware and concurs with the plan as stated in the body of this note and will attest to such by his/her cosignature. E ATTESTATION [facility] ATTESTATION My preceptor for this patient encounter was physically present in the building during the encounter and was fully available. As needed, all aspects of the patient interview, examination, medical decision making process, and medical care plan development were reviewed and approved by the preceptor. Preceptor is aware and concurs with the plan as stated in the body of this note and will attest to such by his/her cosignature. CHICO HINES DO Aug 31, 2016 09:34 SEAN GRAVES MD Sep 03, 2016 13:13
[2016-08-31] MEDS ORDERED: LEVE1INJ5 SC (12:54)
[2016-08-31] MEDS ORDERED: FLOM5CAP PO (12:54)
[2016-08-31] MEDS ORDERED: SENN1TAB2 PO (12:54)
[2016-08-31] MEDS ORDERED: LITH300C PO (12:54)
[2016-08-31] MEDS ORDERED: LITH150C PO (12:54)
--- NOTE | 2016-08-31 13:10 | IPNPDOC ---
Subjective Date Seen The patient was seen on 08/31/16. Subjective Chief Complaint/HPI The patient is a 55-year-old male admitted with a reason for visit of Difficulty Walking, [place] Toxicity. Events since last encounter feeling well today , had a successful trial of void yesterday , doing better with PT today may be able to be discharged home in 1 to 2 days. no fever or chills, no chest pain no abdominal nause , no nausea or vomiting or diarrhea. Objective Physical Examination General Exam: Positive: Cooperative, No Acute Distress, Other (alert, conversant, difficult at times to understand as speech is garbled) Eye Exam: Positive: PERRLA, Conjunctiva & lids normal, EOMI, Negative: Sclera icteric ENT Exam: Positive: Atraumatic, Mucous membr. moist/pink, Pharynx Normal, Tongue Midline Neck Exam: Positive: Supple, Negative: JVD, thyromegaly Chest Exam: Positive: Clear to auscultation, Normal air movement, Negative: Rhonchi, Wheezing Heart Exam: Positive: Rate Normal, Regular Rhythm, Normal S1, Normal S2, Negative: Murmurs, Rubs Telemetry: Positive: No significant arrhythmia Abdomen Exam: Positive: Normal bowel sounds, Soft, Negative: Tenderness, Hepatospenomegaly Extremity Exam: Positive: Normal pulses, Negative: Clubbing, Cyanosis, Edema Assessment /Plan Problems (1) Toxic encephalopathy Status: Acute Problem Text: most likely 2/2 lithium toxicity, pt has been restarted on lower dose of drug lithium level .45 one day ago, lithium 150 mg BID then increased to 150 in am then 300 in pm. tried to contact outpatient psychiatrist but was unable to get through. Will attempt to contact pts psychiatrist again in regards to outpt f/u (2) [place] toxicity Status: Acute Problem Text: will dc with 150 mg in am and 300 mg in pm half of his dose prior to admission (3) Schizoaffective disorder Status: Chronic Problem Text: continue risperidal , trihexiphenidyl, primidone and depakote. (4) Tardive dyskinesia Status: Acute Response to Treatment: Stable (5) Hyperlipidemia Status: Chronic Response to Treatment: Stable (6) Hypertension Status: Chronic Problem Text: will restart lisinopril on discharge. (7) Diabetes Status: Chronic Problem Text: continue januvia stop lispro and start levemir low dosage. patient used to be on very high dosage on levemir at home (8) Diabetic neuropathy Status: Chronic (9) Gait abnormality Status: Chronic Problem Text: multifactorial due to tardive dyskinesia , diabetic neuropathy, tremora . doing well with PT. (10) Urinary retention Status: Acute Problem Text: Will continue with leger cath will try flomax for a week then give a trial of void. (11) Hypothyroid Status: Chronic Problem Text: c/w Synthroid Plan/VTE VTE Prophylaxis Ordered?: Yes Plan/Urinary Catheter Reason for insertion/continuin: Acute obstruct/retention VS, I&O, 24H, Fishbone Vital Signs/I&O Vital Signs Date Time Temp Pulse Resp B/P (MAP) Pulse Ox O2 Delivery O2 Flow Rate FiO2 08/31/16 06:00 98.8 71 19 119/75 (90) 95 Room Air I&O- Last 24 Hours up to 6 AM 08/31/16 06:00 Intake Total 3120 ml Output Total 3600 ml Balance -480 ml Laboratory Data 24H LABS Laboratory Tests 2 08/30/16 16:56: Bedside Glucose (Misc Panel) 144H 08/30/16 20:02: Bedside Glucose (Misc Panel) 148H 08/31/16 05:24: Bedside Glucose (Misc Panel) 107H 08/31/16 11:11: Bedside Glucose (Misc Panel) 112H SEAN GRAVES MD Aug 31, 2016 13:10
[2016-08-31 14:00] VITALS: BP 113/67
[2016-08-31] MEDS: LATANOPROST 0.005% OPHTH SOLN 2.5 ML OD SCH (20:17)
[2016-08-31] MEDS: risperiDONE 2 MG TAB PO SCH (20:18)
[2016-08-31] MEDS: TAMSULOSIN 0.4 MG CAP PO SCH (20:18)
[2016-08-31] MEDS: LITHIUM CARBONATE 300 MG CAP PO SCH (20:44)
[2016-08-31] MEDS ORDERED: LEVEMIR (INSULIN DETEMIR) 1 UNITS/0.01ML SC SCH (21:00)
[2016-08-31 22:00] VITALS: BP 121/72
[2016-09-01] MEDS: LEVOTHYROXINE 25MCG TABLET (0.025MG) PO SCH (05:50)
[2016-09-01 06:00] VITALS: BP 111/70
[2016-09-01] MEDS: GEMFIBROZIL 600 MG TAB PO SCH (09:08)
[2016-09-01] MEDS: DOCUSATE SODIUM 100 MG CAP PO SCH (09:08)
[2016-09-01] MEDS: levOCARNitine ORAL SOLUTION 1,000 MG/10 ML (CARNITOR) PO SCH (09:08)
[2016-09-01] MEDS: LITHIUM CARBONATE 150 MG CAP PO SCH (09:08)
[2016-09-01] MEDS: PRIMIDONE 250 MG TAB PO SCH (09:08)
[2016-09-01] MEDS: SENOKOT S TAB PO SCH (09:08)
[2016-09-01] MEDS: TRIHEXYPHENIDYL 2 MG TAB PO SCH (09:08)
[2016-09-01] MEDS: SITagliptin 50 MG TAB (JANUVIA) PO SCH (09:09)
[2016-09-01] MEDS: DIVALPROEX 500MG *ER* TAB PO SCH (09:09)
[2016-09-01] MEDS: ENOXAPARIN 40 MG/0.4 ML SYRINGE (J1650) SC SCH (09:09)
[2016-09-01] MEDS: risperiDONE 1 MG TAB PO SCH (09:14)
--- NOTE | 2016-09-12 10:32 | DSES ---
DATE OF ADMISSION: 08/20/2016 DATE OF DISCHARGE: 09/01/2016 PRIMARY CARE PROVIDER: Lisa Hill DISCHARGE DIAGNOSES: 1. [place] toxicity. 2. Toxic encephalopathy. 3. Schizoaffective disorder. 4. Tardive dyskinesia. 5. Hyperlipidemia. 6. Hypertension. 7. Diabetes. 8. Diabetic neuropathy. 9. Gait abnormality. 10. Acute urinary retention, now resolved. 11. Hypothyroidism. HOSPITAL COURSE: This is a 55-year-old male who was going to be discharged on 08/31/2016. However, stayed one extra day in the hospital, as he did not have any caregiver at home; and as per physical therapy, they had recommended home with services, as well as family to supervise. The rest of the hospital course as per discharge summary done on 08/31/2016. PHYSICAL EXAMINATION: Vital signs: Temperature 98, pulse 62, respiratory rate 16, blood pressure 111/70, pulse oximetry 93% in room air. General: The patient awake, alert, oriented times three, sitting up in chair, in no acute distress. HEENT: Normocephalic, atraumatic. Moist mucous membranes. Anicteric eyes. Chest: Clear to auscultation. Cardiovascular: S1, S2, regular. Abdomen: Soft, nontender. Bowel sounds present. Extremities: Normal pulses. No edema. LABORATORY DATA: As before. DISPOSITION: The patient is discharged home with home services and family to supervise. DISCHARGE INSTRUCTIONS: The patient to followup with primary care provider in one week. Regular diet. Activity as tolerated. The patient to refrain from driving until seen by primary care provider. The patient to followup with psychiatrist in two weeks. Consistent-carbohydrate diet.
== END 2016-09-01 11:40 | disposition home or self-care (01) | DRG 917 ==
LOC: EDBD 13:20 → M ED 15:04 → M ED INP 19:25 → M PCU 20:57 → M MSPAV 08-24 15:31
PROVIDERS: ADMIT Hospitalist; ATTEND Internal Medicine Nephrology
DX: T43.8X1A Poisoning by other psychotropic drugs, accidental (unintentional), initial encounter (principal); G92 Toxic encephalopathy; E11.42 Type 2 diabetes mellitus with diabetic polyneuropathy; I10 Essential (primary) hypertension; F25.9 Schizoaffective disorder, unspecified; G24.01 Drug induced subacute dyskinesia; E03.9 Hypothyroidism, unspecified; E78.5 Hyperlipidemia, unspecified; F80.1 Expressive language disorder; R26.89 Other abnormalities of gait and mobility; R33.9 Retention of urine, unspecified; Z87.891 Personal history of nicotine dependence; Z79.82 Long term (current) use of aspirin; Z79.899 Other long term (current) drug therapy; Z79.4 Long term (current) use of insulin

== ENCOUNTER 2016-09-10 12:32 | Outpatient (RCR) | payer MEDICARE, MEDICAID ==
[~2016-09-10 12:32] MED LIST changes: +CARN250C3 PO; +DEPA250T32 PO; +DIVA500T9 PO; +ESOM1CAP5 PO; +FLOM5CAP PO; +GEMF600T PO; +LATA5OPD OD; +LEVE1INJ5 SC; +LEVO25TA5 PO; +LISI-542 PO; +LITH150C PO; +LITH300C PO; +PRIM250T8 PO; +RISP1TAB3 PO; +SENN1TAB2 PO; +TRIH2TAB3 PO; +[UNRECOGNIZED DRUG - OTHER] PO
== END 2016-09-17 ==
LOC: M PT 12:32
PROVIDERS: ATTEND Nurse Practitioner Adult Health
DX: Z51.89 Encounter for other specified aftercare (principal); R26.2 Difficulty in walking, not elsewhere classified
CPT/HCPCS: 97161; G8978; G8979

== ENCOUNTER 2016-10-13 07:48 | Emergency (ER) | payer MEDICARE, MEDICAID ==
[~2016-10-13] VITALS: Ht 175.3 cm; Wt 90.9 kg
[2016-10-13] MEDS ORDERED: LITH300C PO (08:22)
--- NOTE | 2016-10-13 09:08 | REP ---
LEFT KNEE, FIVE VIEW: HISTORY: Edema. There is no acute fracture or dislocation. The joint spaces are normal in appearance. IMPRESSION: There is no acute fracture or dislocation. Signed by Darius Davidson MD 10/13/2016 09:11 A
[2016-10-13] MEDS ORDERED: KEFL500C17 PO (09:10)
[2016-10-13] MEDS ORDERED: NAPR500T PO (09:10)
[2016-10-13] MEDS ORDERED: CEPHALEXIN 500 MG CAP PO ONE (09:15)
[2016-10-13 09:18] VITALS: BP 113/73
== END 2016-10-13 09:23 | disposition home or self-care (01) ==
LOC: M ED 07:48
DX: M25.462 Effusion, left knee (principal); E11.9 Type 2 diabetes mellitus without complications; I10 Essential (primary) hypertension; E07.9 Disorder of thyroid, unspecified; M54.9 Dorsalgia, unspecified; F41.9 Anxiety disorder, unspecified; F25.9 Schizoaffective disorder, unspecified; F32.9 Major depressive disorder, single episode, unspecified; Z87.891 Personal history of nicotine dependence; Z79.899 Other long term (current) drug therapy; Z79.4 Long term (current) use of insulin

== ENCOUNTER 2016-10-17 13:15 | Outpatient (RCR) | payer MEDICARE, MEDICAID ==
[~2016-10-17 13:15] MED LIST changes: +KEFL500C17 PO; +NAPR500T PO
== END 2016-10-18 ==
LOC: M PT 13:15
PROVIDERS: ATTEND Nurse Practitioner Adult Health
DX: Z51.89 Encounter for other specified aftercare (principal); R26.2 Difficulty in walking, not elsewhere classified; M25.519 Pain in unspecified shoulder
CPT/HCPCS: 97110; 97112; 97161; 97530; G8978; G8979; G8980; G8984; G8985

== ENCOUNTER 2016-11-12 13:00 | Outpatient (RCR) | payer MEDICARE, MEDICAID | END 2016-11-17 | LOC: M PT 13:00 | PROVIDERS: ATTEND Nurse Practitioner Adult Health | DX: Z51.89 Encounter for other specified aftercare (principal); M25.512 Pain in left shoulder; R26.81 Unsteadiness on feet | CPT/HCPCS: 97110; 97140; 97530; G8984; G8985; G8986 ==

== ENCOUNTER → 2016-12-10 | Outpatient (CLI) | payer MEDICARE, MEDICAID ==
[2016-12-10 13:07] LABS: BASO # 0.1 10^3/uL (0.0-0.2); BASO % 1.1 % (0.0-1.0); EOS # 0.1 10^3/uL (0.0-0.50); EOS % 2.4 % (0.0-3.0); IMMATURE GRANULOCYTE % 0.4 % (0-0); LYMPH # 1.8 10^3/uL (1.5-4.5); LYMPH % 39.6 % (24.0-44.0); MEAN CORPUSCULAR HEMOGLOBIN 31.7 pg (27.0-33.0); MEAN CORPUSCULAR HGB CONC 34.1 g/dl (32.0-36.5); MEAN CORPUSCULAR VOLUME 93.1 fl (80.0-96.0); MONO # 0.5 10^3/uL (0.0-0.8); MONO % 10.6 % (0.0-5.0); NEUTROPHILS # 2.1 10^3/uL (1.8-7.7); NEUTROPHILS % 45.9 % (36.0-66.0); PLATELET COUNT, AUTOMATED 269 10^3/uL (150-450); RED CELL DISTRIBUTION WIDTH 11.9 % (11.5-14.5); WHITE BLOOD COUNT 4.6 10^3/uL (4.0-10.0)
[2016-12-10 13:34] LABS: ALBUMIN/GLOBULIN RATIO 1.48 (1.00-1.93); ALKALINE PHOSPHATASE 51 U/L (45-117); ALT/SGPT 18 U/L (12-78); ANION GAP 5 MEQ/L (8-16); AST/SGOT 3 U/L (15-37); BILIRUBIN,TOTAL 0.3 MG/DL (0.2-1.0); BLOOD UREA NITROGEN 12 MG/DL (7-18); CALCIUM LEVEL 9.3 MG/DL (8.5-10.1); CARBON DIOXIDE LEVEL 30 MEQ/L (21-32); CHLORIDE LEVEL 105 MEQ/L (98-107); CHOLESTEROL LEVEL 190 MG/DL (<200); FREE T4 0.88 NG/DL (0.76-1.46); GLOMERULAR FILTRATION RATE > 60.0 (>56); GLUCOSE, FASTING 116 MG/DL (70-105); POTASSIUM SERUM 4.9 MEQ/L (3.5-5.1); SODIUM LEVEL 140 MEQ/L (136-145); TOTAL PROTEIN 6.7 GM/DL (6.4-8.2); TRIGLYCERIDES LEVEL 128 MG/DL (<150)
== END ==
LOC: M WUC 09:33
PROVIDERS: ATTEND Nurse Practitioner Adult Health
DX: E11.65 Type 2 diabetes mellitus with hyperglycemia (principal); E78.4 Other hyperlipidemia; E55.9 Vitamin D deficiency, unspecified; E03.9 Hypothyroidism, unspecified; Z79.899 Other long term (current) drug therapy

== ENCOUNTER → 2016-12-11 | Outpatient (REF) | payer MEDICARE, MEDICAID | LOC: M LAB REF 18:30 | PROVIDERS: ATTEND Nurse Practitioner Adult Health | DX: R80.9 Proteinuria, unspecified (principal) ==

== ENCOUNTER → 2017-03-15 | Outpatient (CLI) | payer MEDICARE, MEDICAID ==
[2017-03-15 13:13] LABS: VALPROIC ACID (DEPAKOTE) 33.7 UG/ML (50.0-100.0)
[2017-03-15 13:15] LABS: LITHIUM LEVEL 0.42 MEQ/L (0.60-1.20)
== END ==
LOC: M WUC 11:18
DX: Z51.81 Encounter for therapeutic drug level monitoring (principal); Z79.899 Other long term (current) drug therapy
CPT/HCPCS: 80178

== ENCOUNTER → 2017-04-26 | Outpatient (CLI) | payer MEDICARE, MEDICAID ==
[2017-04-26 14:27] LABS: LITHIUM LEVEL 0.55 MEQ/L (0.60-1.20)
== END ==
LOC: M WUC 12:10
DX: Z79.899 Other long term (current) drug therapy (principal)
CPT/HCPCS: 80178

== ENCOUNTER → 2017-06-11 | Outpatient (CLI) | payer MEDICARE, MEDICAID ==
[2017-06-11 12:30] LABS: BASO # 0.1 10^3/uL (0.0-0.2); EOS # 0.2 10^3/uL (0.0-0.50); EOS % 3.5 % (0.0-3.0); HEMATOCRIT 39.7 % (42.0-52.0); HEMOGLOBIN 13.7 g/dl (13.5-17.5); IMMATURE GRANULOCYTE % 0.4 % (0-3.0); LYMPH # 1.9 10^3/uL (1.5-4.5); LYMPH % 36.3 % (24.0-44.0); MEAN CORPUSCULAR HEMOGLOBIN 32.3 pg (27.0-33.0); MEAN CORPUSCULAR HGB CONC 34.5 g/dl (32.0-36.5); MEAN CORPUSCULAR VOLUME 93.6 fl (80.0-96.0); MONO # 0.4 10^3/uL (0.0-0.8); MONO % 8.5 % (0.0-5.0); NEUTROPHILS # 2.6 10^3/uL (1.8-7.7); NEUTROPHILS % 50.3 % (36.0-66.0); PLATELET COUNT, AUTOMATED 272 10^3/uL (150-450); RED BLOOD COUNT 4.24 10^6/uL (4.30-6.10); RED CELL DISTRIBUTION WIDTH 12.4 % (11.5-14.5); WHITE BLOOD COUNT 5.2 10^3/uL (4.0-10.0)
[2017-06-11 13:13] LABS: TOTAL 25(OH) VITAMIN D 24.4 NG/ML (30.0-100.0)
[2017-06-11 13:20] LABS: ALBUMIN 4.1 GM/DL (3.2-5.2); ALBUMIN/GLOBULIN RATIO 1.37 (1.00-1.93); ALKALINE PHOSPHATASE 56 U/L (45-117); ALT/SGPT 17 U/L (12-78); ANION GAP 6 MEQ/L (8-16); AST/SGOT 9 U/L (7-37); BILIRUBIN,TOTAL 0.3 MG/DL (0.2-1.0); BLOOD UREA NITROGEN 13 MG/DL (7-18); CARBON DIOXIDE LEVEL 29 MEQ/L (21-32); CHLORIDE LEVEL 106 MEQ/L (98-107); CHOLESTEROL LEVEL 162 MG/DL (<200); CHOLESTEROL RISK RATIO 3.176 (<5); CREATININE FOR GFR 0.78 MG/DL (0.70-1.30); FREE T4 0.81 NG/DL (0.76-1.46); GLOMERULAR FILTRATION RATE > 60.0 (>56); GLUCOSE, FASTING 94 MG/DL (70-100); HDL CHOLESTEROL 51 MG/DL (>40); LDL CHOLESTEROL 87.4 MG/DL (<100); NON-HDL-C 111 MG/DL; POTASSIUM SERUM 4.5 MEQ/L (3.5-5.1); SODIUM LEVEL 141 MEQ/L (136-145); TOTAL PROTEIN 7.1 GM/DL (6.4-8.2); TRIGLYCERIDES LEVEL 118 MG/DL (<150)
[2017-06-11 14:15] LABS: ESTIMATED AVERAGE GLUCOSE 126 MG/DL (60-110)
== END ==
LOC: M WUC 09:17
DX: E11.65 Type 2 diabetes mellitus with hyperglycemia (principal); E55.9 Vitamin D deficiency, unspecified; E03.9 Hypothyroidism, unspecified; E78.4 Other hyperlipidemia; I10 Essential (primary) hypertension; Z79.899 Other long term (current) drug therapy
CPT/HCPCS: 84443

== ENCOUNTER → 2017-09-09 | Outpatient (CLI) | payer MEDICARE, MEDICAID ==
[2017-09-09 14:34] LABS: BASO # 0.1 10^3/uL (0.0-0.2); BASO % 0.9 % (0.0-1.0); EOS # 0.2 10^3/uL (0.0-0.50); HEMATOCRIT 40.5 % (42.0-52.0); HEMOGLOBIN 14.1 g/dl (13.5-17.5); IMMATURE GRANULOCYTE # 0.1 10^3/uL (0-0); IMMATURE GRANULOCYTE % 0.9 % (0-3.0); LYMPH # 1.9 10^3/uL (1.5-4.5); MEAN CORPUSCULAR HEMOGLOBIN 32.6 pg (27.0-33.0); MEAN CORPUSCULAR HGB CONC 34.8 g/dl (32.0-36.5); MEAN CORPUSCULAR VOLUME 93.5 fl (80.0-96.0); MONO # 0.5 10^3/uL (0.0-0.8); MONO % 8.9 % (0.0-5.0); NEUTROPHILS % 52.3 % (36.0-66.0); PLATELET COUNT, AUTOMATED 271 10^3/uL (150-450); RED BLOOD COUNT 4.33 10^6/uL (4.30-6.10); RED CELL DISTRIBUTION WIDTH 12.5 % (11.5-14.5); WHITE BLOOD COUNT 5.7 10^3/uL (4.0-10.0)
[2017-09-09 14:48] LABS: ESTIMATED AVERAGE GLUCOSE 128 MG/DL (60-110); HEMOGLOBIN A1c 6.1 %; TOTAL 25(OH) VITAMIN D 43.2 NG/ML (30.0-100.0)
[2017-09-09 14:51] LABS: ALBUMIN 4.1 GM/DL (3.2-5.2); ALBUMIN/GLOBULIN RATIO 1.28 (1.00-1.93); ALKALINE PHOSPHATASE 64 U/L (45-117); ALT/SGPT 18 U/L (12-78); ANION GAP 7 MEQ/L (8-16); AST/SGOT 7 U/L (7-37); BILIRUBIN,TOTAL 0.6 MG/DL (0.2-1.0); BLOOD UREA NITROGEN 15 MG/DL (7-18); CALCIUM LEVEL 8.7 MG/DL (8.5-10.1); CARBON DIOXIDE LEVEL 28 MEQ/L (21-32); CHLORIDE LEVEL 106 MEQ/L (98-107); CHOLESTEROL LEVEL 173 MG/DL (<200); CHOLESTEROL RISK RATIO 3.264 (<5); CREATININE FOR GFR 0.78 MG/DL (0.70-1.30); FREE T4 0.81 NG/DL (0.76-1.46); GLOMERULAR FILTRATION RATE > 60.0 (>56); GLUCOSE, FASTING 94 MG/DL (70-100); HDL CHOLESTEROL 53 MG/DL (>40); LDL CHOLESTEROL 89.6 MG/DL (<100); NON-HDL-C 120 MG/DL; POTASSIUM SERUM 4.4 MEQ/L (3.5-5.1); SODIUM LEVEL 141 MEQ/L (136-145); TOTAL PROTEIN 7.3 GM/DL (6.4-8.2); TRIGLYCERIDES LEVEL 152 MG/DL (<150)
[2017-09-09 14:58] LABS: LITHIUM LEVEL 0.46 MEQ/L (0.60-1.20)
== END ==
LOC: M WUC 11:04
DX: Z79.899 Other long term (current) drug therapy (principal)
CPT/HCPCS: 80178

== ENCOUNTER 2018-03-07 15:56 | Inpatient (IN) | payer MEDICARE, MEDICAID ==
[~2018-03-07] VITALS: Ht 175.3 cm; Wt 91.6 kg
[~2018-03-07 15:56] MED LIST changes: +FLOM0.4C39 PO; -FLOM5CAP PO; -GEMF600T PO; +GEMF600T5 PO; +NAPR-50 PO; -NAPR500T PO
[2018-03-07] MEDS ORDERED: CENTCHW3 PO (16:06)
[2018-03-07] MEDS ORDERED: CETI5TA PO (16:06)
[2018-03-07] MEDS ORDERED: VITATAB11 PO (16:06)
[2018-03-07] MEDS ORDERED: MAGN500C PO (16:06)
[2018-03-07] MEDS ORDERED: NS 1,000 ML IV ONE ×2 (17:00→19:45)
[2018-03-07 17:21] LABS: BASO % 0.2 % (0.0-1.0); EOS % 0.1 % (0.0-3.0); HEMATOCRIT 41.3 % (42.0-52.0); HEMOGLOBIN 14.4 g/dl (13.5-17.5); LYMPH % 8.4 % (24.0-44.0); MEAN CORPUSCULAR HEMOGLOBIN 32.3 pg (27.0-33.0); MEAN CORPUSCULAR HGB CONC 34.9 g/dl (32.0-36.5); MEAN CORPUSCULAR VOLUME 92.6 fl (80.0-96.0); MONO # 0.8 10^3/uL (0.0-0.8); MONO % 6.2 % (0.0-5.0); NEUTROPHILS # 10.4 10^3/uL (1.8-7.7); NEUTROPHILS % 84.5 % (36.0-66.0); PLATELET COUNT, AUTOMATED 333 10^3/uL (150-450); RED BLOOD COUNT 4.46 10^6/uL (4.30-6.10); WHITE BLOOD COUNT 12.4 10^3/uL (4.0-10.0)
--- NOTE | 2018-03-07 17:43 | REP ---
Chest x-ray: Two views. History: Abdomen pain. Comparison study: April 22, 2012. Findings: The lungs are well inflated and free of infiltrate. Pleural angles are sharp. Heart size is normal. No significant bony abnormality is seen. Impression: No acute disease. Electronically Signed by Juan Chacon MD 03/07/2018 08:05 P
[2018-03-07 17:50] LABS: INFLUENZA A AMPLIFICATION NEGATIVE (NEGATIVE); INFLUENZA B AMPLIFICATION NEGATIVE (NEGATIVE)
[2018-03-07 17:56] LABS: ALBUMIN 4.4 GM/DL (3.2-5.2); ALT/SGPT 25 U/L (12-78); BILIRUBIN,DIRECT 0.2 MG/DL (0.0-0.2); BILIRUBIN,TOTAL 0.5 MG/DL (0.2-1.0); BLOOD UREA NITROGEN 23 MG/DL (7-18); CALCIUM LEVEL 9.3 MG/DL (8.5-10.1); CARBON DIOXIDE LEVEL 27 MEQ/L (21-32); CHLORIDE LEVEL 102 MEQ/L (98-107); CPK CREATINE PHOSPHOKINASE 805 U/L (39-308); CREATININE FOR GFR 0.86 MG/DL (0.70-1.30); GLOMERULAR FILTRATION RATE > 60.0 (>56); GLUCOSE, FASTING 138 MG/DL (70-100); LIPASE 61 U/L (73-393); SODIUM LEVEL 138 MEQ/L (136-145); TOTAL PROTEIN 7.8 GM/DL (6.4-8.2); TROPONIN I < 0.02 NG/ML (< 0.10)
[2018-03-07] MEDS ORDERED: ISOVUE-370 76% 100ML VIAL (Q9967) As Ordered ONE ×2 (19:39→19:51)
--- NOTE | 2018-03-07 21:09 | REPVR ---
EXAM: CT Abdomen and Pelvis With Contrast EXAM DATE/TIME: 03/07/2018 7:41 PM CLINICAL HISTORY: 57 years old, male; Signs and symptoms; Other: Diarrhea TECHNIQUE: Axial computed tomography images of the abdomen and pelvis with intravenous contrast. All CT scans at this facility use at least one of these dose optimization techniques: automated exposure control; mA and/or kV adjustment per patient size (includes targeted exams where dose is matched to clinical indication); or iterative reconstruction. Coronal and sagittal reformatted images were created and reviewed. CONTRAST: 125 ml of ISOVUE 370 administered intravenously. COMPARISON: No relevant prior studies available. FINDINGS: Lower thorax: Tiny pleural effusions are noted bilaterally. ABDOMEN: Liver: The liver measures 20 cm in craniocaudal span. Gallbladder and bile ducts: Surgical clips noted in the gallbladder fossa. The gallbladder is absent. Pancreas: Normal. No ductal dilation. Spleen: Normal. No splenomegaly. Adrenals: Normal. No mass. Kidneys and ureters: Normal. No hydronephrosis. Stomach and bowel: Generalized colonic diverticulosis. Large amount of stool noted in the rectosigmoid colon. Appendix: No evidence of appendicitis. PELVIS: Bladder: The bladder is markedly distended measuring at least 18.9 x 9.5 x 13.5 cm for a volume of 1273 cc. Reproductive: Prostate measures approximately 3.4 x 4.6 x 5 cm. ABDOMEN and PELVIS: Intraperitoneal space: Normal. No free air. No significant fluid collection. Bones/joints: No acute fracture. No dislocation. Soft tissues: Unremarkable. Vasculature: Normal. No abdominal aortic aneurysm. Lymph nodes: Normal. No enlarged lymph nodes. IMPRESSION: 1. Large amount of stool in the rectosigmoid colon. Given the history of diarrhea, this suggests fecal impaction. 2. Markedly distended bladder with a volume of 1273 cc of urine. 3. The liver is enlarged. 4. Generalized colonic diverticulosis. Electronically signed by: Teresita Niño On 03/07/2018 21:08:55 PM
[2018-03-07] MEDS ORDERED: FLEET ENEMA PR ONE (21:45)
[2018-03-07] MEDS ORDERED: MIRALAX *UNIT DOSE* 17GM PACKET PO ONE (23:45)
[2018-03-07] MEDS ORDERED: FLEET OIL RETENTION ENEMA PR ONE (23:45)
[2018-03-07] MEDS ORDERED: CETI10TA PO (23:46)
[2018-03-07] MEDS ORDERED: XALA0.007 OU (23:53)
[2018-03-08] MEDS ORDERED: NS 1,000 ML IV SCH
[2018-03-08] MEDS ORDERED: GLUCOSE 4 GM CHEW TABLET PO PRN
[2018-03-08] MEDS ORDERED: GLUCAGON FOR INJ 1 MG VIAL (J1610) SC PRN
[2018-03-08] MEDS ORDERED: DEXTROSE 50% 50 ML SYRINGE IV PRN
[2018-03-08] MEDS ORDERED: HumaLOG INSULIN (NovoLOG) PER UNIT SC SCH
[2018-03-08] MEDS ORDERED: FLOM0.4C39 PO (00:07)
[2018-03-08] MEDS ORDERED: DOCU100T8 PO (00:07)
[2018-03-08] MEDS ORDERED: INVE234I IM (00:07)
[2018-03-08] MEDS ORDERED: LITH150C PO (00:07)
[2018-03-08] MEDS ORDERED: FLUTISP NARES (00:07)
[2018-03-08] MEDS ORDERED: LITH45TASA PO (00:07)
[2018-03-08] MEDS ORDERED: INSUDET SC (00:07)
[2018-03-08] MEDS ORDERED: FLUTICASONE PROP 0.05% NASAL SPRAY 16 GM (FLONASE) NARES PRN (00:15)
[2018-03-08] MEDS ORDERED: DOCUSATE SODIUM 100 MG CAP PO PRN (00:15)
[2018-03-08 01:05] VITALS: BP 138/71
[2018-03-08] MEDS: LEVEMIR (INSULIN DETEMIR) 1 UNITS/0.01ML SC SCH ×2 (02:11→21:00)
[2018-03-08] MEDS: LATANOPROST 0.005% OPHTH SOLN 2.5 ML OU SCH ×2 (02:11→21:50)
[2018-03-08] MEDS: DIVALPROEX 500MG *ER* TAB PO SCH ×3 (02:11→21:48)
[2018-03-08] MEDS: GEMFIBROZIL 600 MG TAB PO SCH ×3 (02:12→21:46)
[2018-03-08] MEDS: PRIMIDONE 250 MG TAB PO SCH ×3 (02:12→21:47)
[2018-03-08] MEDS: TAMSULOSIN 0.4 MG CAP PO SCH ×2 (02:12→21:47)
[2018-03-08] MEDS: LITHIUM CARBONATE 150 MG CAP PO SCH ×2 (02:12→21:47)
[2018-03-08 06:00] VITALS: BP 135/73
[2018-03-08] MEDS: HEPARIN SOD (PORCINE) 5000 UNITS/ML VIAL SC SCH ×3 (06:00→21:51)
[2018-03-08] MEDS ORDERED: FLEET OIL RETENTION ENEMA PR PRN (06:30)
[2018-03-08] MEDS ORDERED: ONDANSETRON 4MG/2ML VIAL (J2405) IV PRN (06:30)
[2018-03-08 07:02] LABS: HEMATOCRIT 36.3 % (42.0-52.0); HEMOGLOBIN 12.9 g/dl (13.5-17.5); MEAN CORPUSCULAR HEMOGLOBIN 32.2 pg (27.0-33.0); MEAN CORPUSCULAR HGB CONC 35.5 g/dl (32.0-36.5); MEAN CORPUSCULAR VOLUME 90.5 fl (80.0-96.0); PLATELET COUNT, AUTOMATED 300 10^3/uL (150-450); RED BLOOD COUNT 4.01 10^6/uL (4.30-6.10); WHITE BLOOD COUNT 10.4 10^3/uL (4.0-10.0)
[2018-03-08 07:28] LABS: BLOOD UREA NITROGEN 19 MG/DL (7-18); CALCIUM LEVEL 8.3 MG/DL (8.5-10.1); CARBON DIOXIDE LEVEL 23 MEQ/L (21-32); CHLORIDE LEVEL 107 MEQ/L (98-107); CPK CREATINE PHOSPHOKINASE 409 U/L (39-308); CREATININE FOR GFR 0.64 MG/DL (0.70-1.30); GLOMERULAR FILTRATION RATE > 60.0 (>56); GLUCOSE, FASTING 125 MG/DL (70-100); POTASSIUM SERUM 3.8 MEQ/L (3.5-5.1); SODIUM LEVEL 139 MEQ/L (136-145)
[2018-03-08] MEDS: HumaLOG INSULIN (NovoLOG) PER UNIT SC SCH ×4 (08:46→21:00)
[2018-03-08] MEDS: LISINOPRIL 5 MG TAB PO SCH (08:46)
[2018-03-08] MEDS: VITAMIN B COMPLEX/VIT C CAP PO SCH (08:46)
[2018-03-08] MEDS: LEVOTHYROXINE 25MCG TABLET (0.025MG) PO SCH (08:46)
[2018-03-08] MEDS: MULTIVITAMINS/MINERALS THERAP 1 TAB PO SCH (08:47)
[2018-03-08] MEDS: PANTOPRAZOLE 40MG TAB (PROTONIX) PO SCH (08:47)
[2018-03-08] MEDS: LITHIUM CARBONATE 450 MG **CR** TAB PO SCH (08:50)
--- NOTE | 2018-03-08 10:47 | HPE ---
DATE OF ADMISSION: 03/07/2018 CHIEF COMPLAINT: Headache since Saturday, which has now since resolved. Congestion. Diarrhea for the past 2 days. HISTORY OF PRESENT ILLNESS: The patient is a 57-year-old male with a significant past medical history of schizoaffective/schizophrenia, bipolar disorder, gastroesophageal reflux disease (GERD), diabetes, hypertension, hypothyroidism, benign prostatic hypertrophy (BPH), as well as what appears to be drug-induced parkinsonism symptoms. He presented to the emergency room with generalized nonspecific complaints. He states that he was having frontal headache since Saturday, which has since resolved since presenting to the emergency room. He felt congested, felt generalized weakness, two days of loose stools, mucoid and nonbloody, last this morning. The patient has no history of recent antibiotic use or hospitalizations. The patient was notably hospitalized back in 2016 where he also had urinary retention. At this point in time, he required a Mazariegos and was placed on Flomax. Subsequently, the Mazariegos was discontinued and he was discharged. The patient has never seen a urologist. In the emergency room, he had a CT of the abdomen and pelvis, which showed a large amount of stool in the rectosigmoid colon suggesting fecal impaction, as well as 1200 mL in the urinary bladder. A Mazariegos was subsequently placed. The patient denies any chest pain. Denies any shortness of breath. Denies any fevers or chills. He does endorse generalized weakness. At bedside is the patient's sister, who assisted during the examination. The patient appears to be somewhat of a poor historian. He has tardive dyskinesia as well. PAST SURGICAL HISTORY: The patient has had cholecystectomy. HOME MEDICATIONS: - divalproex - gemfibrozil - Synthroid - Lisinopril - lithium - multivitamin - primidone - Januvia - Flomax - omeprazole - clonidine - detemir - trihexyphenidyl SOCIAL HISTORY: Denies tobacco, alcohol or illicit drug use. FAMILY HISTORY: Coronary artery disease, diabetes. ALLERGIES: No known drug allergies. REVIEW OF SYSTEMS: 12-point review of systems was completed, all negative except those listed in the history of present illness. VITAL SIGNS: On admission, temperature 97.4, pulse 85, respirations 20, blood pressure 150/84, saturating 100% on room air. PHYSICAL EXAMINATION: GENERAL: He is well nourished and in no apparent distress. HEENT: Head is normocephalic, atraumatic. Eyes: Extraocular movements are intact. Pupils are equal, round and reactive to light. Neck is supple with no jugular venous pressure. LUNGS: Clear to auscultation. There are no crackles, wheezes, rales or rhonchi. CARDIOVASCULAR: Regular rate and rhythm. Normal S1, S2. No murmurs, gallops or rubs. ABDOMEN: Soft, nontender, nondistended. Positive bowel sounds. No rebound. No guarding. EXTREMITIES: No pitting edema or calf tenderness. SKIN: Intact. No rashes, lesions, or breakdown. NEUROLOGIC: Alert and oriented times three. No focal deficit is appreciated on examination. LABORATORIES AND IMAGING DONE IN THE EMERGENCY ROOM: White count 12, hemoglobin and hematocrit of 14/41, platelet count 333. Chemistry shows a BUN and creatinine of 23/0.86. UA shows 9 WBC. Rapid flu is negative. IMAGING: Chest x-ray shows no acute disease. CT of the abdomen and pelvis shows a large amount of stool in the rectosigmoid colon suggesting fecal impaction, 1200 mL in the bladder. ASSESSMENT AND PLAN: 1. Generalized weakness, one of an array of constitutional symptoms. Noted to have underlying urinary retention and constipation, likely multifactorial in etiology, likely secondary to the anticholinergic effect of the patient's medication, trihexyphenidyl. Constipation may also be leading to some of the urinary retention. There is no infection on the UA and no obstruction on the CT of the abdomen and pelvis. Enema was given in the emergency room. We will give the patient MiraLAX. Emergency room provider will attempt to disimpact the patient. Mazariegos placed in the emergency room for urinary retention. We will hold trihexyphenidyl. We will attempt to remove the Mazariegos in the morning and see if the patient can void on his own. We will continue the patient's Flomax. May benefit from urology followup as an outpatient. 2. 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 He is on Invega monthly, primidone and trihexyphenidyl for his medication induced parkinsonian symptoms. Divalproex, lithium for his bipolar disorder. 3. Hypertension. Continue Lisinopril. 4. Hypothyroidism. Continue levothyroxine. Repeat TSH. Continue his eye drops. 5. Diabetes. Hold Januvia and place the patient on sliding scale and continue his insulin, Detemir. 6. Supportive. Deep vein thrombosis (DVT) prophylaxis with heparin subcutaneously. Gastrointestinal prophylaxis is not indicated. 7. Diet is cardiac, diabetic diet.
[2018-03-08 14:00] VITALS: BP 118/73
--- NOTE | 2018-03-08 18:21 | IPNPDOC ---
Text Note Date of Service The patient was seen on 03/08/18. NOTE SUBJECTIVE: Patient's headache and congestion has resolved. Still has some co ugh. He has a leger in place. No diarrhea or vomiting. PHYSICAL EXAMINATION: VITALS: As below GENERAL: He is well nourished and in no apparent distress. HEENT: Head is normocephalic, atraumatic. Eyes: Extraocular movements are intact. Pupils are equal, round and reactive to light. Neck is supple with no jugular venous pressure. LUNGS: Clear to auscultation. There are no crackles, wheezes, rales or rhonchi. CARDIOVASCULAR: Regular rate and rhythm. Normal S1, S2. No murmurs, gallops or rubs. ABDOMEN: Soft, nontender, nondistended. Positive bowel sounds. No rebound. No guarding. EXTREMITIES: No pitting edema or calf tenderness. SKIN: Intact. No rashes, lesions, or breakdown. NEUROLOGIC: Alert and oriented times three. No focal deficit is appreciated on examination. LABORATORIES AND IMAGING: reviewed IMAGING: Chest x-ray shows no acute disease. CT of the abdomen and pelvis shows a large amount of stool in the rectosigmoid colon suggesting fecal impaction, 1200 mL in the bladder. ASSESSMENT AND PLAN: The patient is a 57-year-old male with a significant past medical history of schizoaffective/schizophrenia, bipolar disorder, tardive dyskinesia from antipsychotic meds, gastroesophageal reflux disease (GERD), diabetes, hypertension, Hyperlipidemia, hypothyroidism, benign prostatic hypertrophy (BPH) with h/o urinary retention, as well as what appears to be d rug-induced parkinsonism symptoms. He presented to the emergency room with generalized nonspecific complaints. He states that he was having frontal headache since Saturday, which has since resolved since presenting to the emergency room. He felt congested, felt generalized weakness, two days of loose stools, mucoid and nonbloody, last this morning. The patient has no history of recent antibiotic use or hospitalizations. The patient was notably hospitalized back in 2016 where he also had urinary retention. At that time, he required a Leger and was placed on Flomax. Subsequently, the Leger was discontinued and he was discharged. The patient has never seen a urologist. In the emergency room, he had a CT of the abdomen and pelvis, which showed a large amount of stool in the rectosigmoid colon suggesting fecal impaction, as well as 1200 mL in the urinary bladder. A Leger was subsequently placed. He was admitted for fecal impaction and acute urinary retention. Generalized weakness, headache , cogestion, vomiting, an array of constitutional symptoms. could be a viral prodrome which has resolved at this time. Acute on chronic urinary retention and Fecal impaction. likely multifactorial in etiology, likely secondary to the anticholinergic effect of the patient's medication, trihexyphenidyl. Constipation may also be leading to some of the urinary retention. There is no infection on the UA and no obstruction on the CT of the abdomen and pelvis. Enema was given in the emergency room. We will give the patient MiraLAX. Leger placed in the emergency room for urinary retention. We will hold trihexyphenidyl. We will continue the patient's Flomax. May benefit from urology followup as an outpatient. 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 He is on Invega monthly, primidone and trihexyphenidyl for his medication induced parkinsonian symptoms. Divalproex, lithium for his bipolar disorder. \ will check lithium level Hypertension. Continue Lisinopril, clonidine. Hypothyroidism. Continue levothyroxine. Repeat TSH. Diabetes with diabetic neuropathy Hold Januvia and place the patient on sliding scale and continue his insulin, Detemir. Hyperlipidemia continue gemfibrozil GERD continue PPI Deep vein thrombosis (DVT) prophylaxis with heparin subcutaneously. Diet is cardiac, diabetic diet. VS,Fishbone, I+O VS, Fishbone, I+O Laboratory Tests 03/08/18 06:25 Red Blood Count 4.01 L, Mean Corpuscular Volume 90.5, Mean Corpuscular Hemoglobin 32.2, Mean Corpuscular Hemoglobin Concent 35.5, Red Cell Distribution Width 12.2, Calcium Level 8.3 L Vital Signs Date Time Temp Pulse Resp B/P (MAP) Pulse Ox O2 Delivery O2 Flow Rate FiO2 03/08/18 14:00 98.8 58 14 118/73 (88) 97 Room Air I&O- Last 24 Hours up to 6 AM 03/08/18 06:00 Intake Total 2480 ml Output Total 0 ml Balance 2480 ml SEAN GRAVES MD Mar 08, 2018 18:21
[2018-03-08] MEDS ORDERED: MIRALAX *UNIT DOSE* 17GM PACKET PO PRN (19:45)
[2018-03-08] MEDS ORDERED: BISACODYL 10 MG SUPP PR SCH (21:00)
[2018-03-08] MEDS: SENOKOT S TAB PO SCH (21:47)
[2018-03-08 22:00] VITALS: BP 121/69
[2018-03-09] MEDS ORDERED: ACETAMINOPHEN TAB 650MG DOSE (2X325MG) PO PRN (02:15)
[2018-03-09] MEDS: HEPARIN SOD (PORCINE) 5000 UNITS/ML VIAL SC SCH ×3 (05:55→22:10)
[2018-03-09 06:00] VITALS: BP 108/67
[2018-03-09 06:05] LABS: HEMATOCRIT 37.2 % (42.0-52.0); HEMOGLOBIN 13.1 g/dl (13.5-17.5); MEAN CORPUSCULAR HEMOGLOBIN 31.9 pg (27.0-33.0); MEAN CORPUSCULAR HGB CONC 35.2 g/dl (32.0-36.5); MEAN CORPUSCULAR VOLUME 90.5 fl (80.0-96.0); PLATELET COUNT, AUTOMATED 295 10^3/uL (150-450); RED BLOOD COUNT 4.11 10^6/uL (4.30-6.10); WHITE BLOOD COUNT 8.8 10^3/uL (4.0-10.0)
[2018-03-09 06:25] LABS: BLOOD UREA NITROGEN 12 MG/DL (7-18); CALCIUM LEVEL 8.2 MG/DL (8.5-10.1); CARBON DIOXIDE LEVEL 27 MEQ/L (21-32); CHLORIDE LEVEL 106 MEQ/L (98-107); CREATININE FOR GFR 0.59 MG/DL (0.70-1.30); GLOMERULAR FILTRATION RATE > 60.0 (>56); GLUCOSE, FASTING 134 MG/DL (70-100); LITHIUM LEVEL 0.42 MEQ/L (0.60-1.20); SODIUM LEVEL 139 MEQ/L (136-145)
--- NOTE | 2018-03-09 08:08 | ECGEPIP ---
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
[2018-03-09] MEDS: PANTOPRAZOLE 40MG TAB (PROTONIX) PO SCH (09:28)
[2018-03-09] MEDS: MULTIVITAMINS/MINERALS THERAP 1 TAB PO SCH (09:28)
[2018-03-09] MEDS: VITAMIN B COMPLEX/VIT C CAP PO SCH (09:28)
[2018-03-09] MEDS: GEMFIBROZIL 600 MG TAB PO SCH ×2 (09:29→22:11)
[2018-03-09] MEDS: SENOKOT S TAB PO SCH ×2 (09:29→22:11)
[2018-03-09] MEDS: LITHIUM CARBONATE 450 MG **CR** TAB PO SCH (09:29)
[2018-03-09] MEDS: LEVOTHYROXINE 25MCG TABLET (0.025MG) PO SCH (09:29)
[2018-03-09] MEDS: DIVALPROEX 500MG *ER* TAB PO SCH ×2 (09:29→22:12)
[2018-03-09] MEDS: HumaLOG INSULIN (NovoLOG) PER UNIT SC SCH ×4 (09:30→21:00)
[2018-03-09] MEDS: PRIMIDONE 250 MG TAB PO SCH ×2 (09:30→22:12)
[2018-03-09] MEDS: LISINOPRIL 5 MG TAB PO SCH (09:30)
[2018-03-09] MEDS ORDERED: BISACODYL 10 MG SUPP PR PRN (13:00)
--- NOTE | 2018-03-09 13:51 | IPNPDOC ---
Text Note Date of Service The patient was seen on 03/09/18. NOTE Subjective: Patient states he had a very large bowel movement last night. Denies any abdominal pain. No nausea or vomiting. Feels well. No CP/SOB/palpitations. No ADAN. Feels congested and would like his flonase. Objective: Vitals: (see below) General: No acute distress, laying comfortably in bed. HEENT: Moist mucous membranes. Neck: No JVD or lymphadenopathy Cardiac: RRR, No murmurs Pulm: Clear to auscultation b/l. No wheezing, rhonchi Abd: NT/ND + BS Ext: No edema or cyanosis Mazariegos in place Labs (see below) Images: CT abdomen and pelvis 03/07/18 IMPRESSION: 1. Large amount of stool in the rectosigmoid colon. Given the history of diarrhea, this suggests fecal imp action. 2. Markedly distended bladder with a volume of 1273 cc of urine. 3. The liver is enlarged. 4. Generalized colonic diverticulosis. Assessment/Plan 1. Acute on chronic urinary retention with associated fecal impaction. Patient had a large bowel movement, we will continue bowel regimen. Patient is on Flomax. We'll attempt to discontinue Mazariegos, with a a voiding trial. Patient will need outpatient urology follow-up. 2. Schizoaffective disorder/schizophrenia . Tardive dyskinesia, bipolar- patient is on an invega monthly, primidone, lithium for his bipolar disorder, valproate 3. Hypothyroidism on Synthroid 4. History of hypertension continue home meds 5. Diabetes mellitus continue Levemir/sliding scale insulin. Hold by mouth meds. 6. Hyperlipidemia continue home meds 7. GERD on PPI. DVT prophy: Heparin subcutaneous PT consulted. VS,Fishbone, I+O VS, Fishbone, I+O Laboratory Tests 03/09/18 05:45 Red Blood Count 4.11 L, Mean Corpuscular Volume 90.5, Mean Corpuscular Hemoglobin 31.9, Mean Corpuscular Hemoglobin Concent 35.2, Red Cell Distribution Width 12.0, Calcium Level 8.2 L Vital Signs Date Time Temp Pulse Resp B/P (MAP) Pulse Ox O2 Delivery O2 Flow Rate FiO2 03/09/18 09:30 108/67 03/09/18 06:00 97.8 54 20 96 Room Air I&O- Last 24 Hours up to 6 AM 03/09/18 06:00 Intake Total 3280 ml Output Total 2050 ml Balance 1230 ml HA ERIC MD Mar 09, 2018 13:51
[2018-03-09 14:00] VITALS: BP 122/68
[2018-03-09] MEDS: FIORICET TAB PO PRN (17:16)
[2018-03-09 20:00] VITALS: BP 116/70
[2018-03-09] MEDS ORDERED: CETIRIZINE (ZyrTEC) 10 MG TAB PO SCH (21:00)
[2018-03-09] MEDS: LEVEMIR (INSULIN DETEMIR) 1 UNITS/0.01ML SC SCH (22:11)
[2018-03-09] MEDS: TAMSULOSIN 0.4 MG CAP PO SCH (22:12)
[2018-03-09] MEDS: LITHIUM CARBONATE 150 MG CAP PO SCH (22:12)
[2018-03-09] MEDS: LATANOPROST 0.005% OPHTH SOLN 2.5 ML OU SCH (22:13)
[2018-03-09] MEDS: BRIMONIDINE 0.1% OU SCH (22:46)
[2018-03-10] MEDS: FIORICET TAB PO PRN ×2 (02:32→09:11)
[2018-03-10] MEDS: HEPARIN SOD (PORCINE) 5000 UNITS/ML VIAL SC SCH ×2 (05:55→14:14)
[2018-03-10 06:00] VITALS: BP 142/80
[2018-03-10 06:04] LABS: HEMATOCRIT 38.4 % (42.0-52.0); HEMOGLOBIN 13.6 g/dl (13.5-17.5); MEAN CORPUSCULAR HEMOGLOBIN 32.3 pg (27.0-33.0); MEAN CORPUSCULAR HGB CONC 35.4 g/dl (32.0-36.5); MEAN CORPUSCULAR VOLUME 91.2 fl (80.0-96.0); PLATELET COUNT, AUTOMATED 325 10^3/uL (150-450); RED BLOOD COUNT 4.21 10^6/uL (4.30-6.10)
[2018-03-10 06:33] LABS: BLOOD UREA NITROGEN 11 MG/DL (7-18); CALCIUM LEVEL 8.6 MG/DL (8.5-10.1); CARBON DIOXIDE LEVEL 27 MEQ/L (21-32); CHLORIDE LEVEL 103 MEQ/L (98-107); CREATININE FOR GFR 0.67 MG/DL (0.70-1.30); GLOMERULAR FILTRATION RATE > 60.0 (>56); GLUCOSE, FASTING 118 MG/DL (70-100); SODIUM LEVEL 137 MEQ/L (136-145)
[2018-03-10] MEDS: GEMFIBROZIL 600 MG TAB PO SCH (09:06)
[2018-03-10] MEDS: DIVALPROEX 500MG *ER* TAB PO SCH (09:06)
[2018-03-10] MEDS: PRIMIDONE 250 MG TAB PO SCH (09:06)
[2018-03-10] MEDS: HumaLOG INSULIN (NovoLOG) PER UNIT SC SCH ×3 (09:06→17:45)
[2018-03-10 09:07] VITALS: BP 142/80
[2018-03-10] MEDS: LITHIUM CARBONATE 450 MG **CR** TAB PO SCH (09:07)
[2018-03-10] MEDS: LEVOTHYROXINE 25MCG TABLET (0.025MG) PO SCH (09:07)
[2018-03-10] MEDS: VITAMIN B COMPLEX/VIT C CAP PO SCH (09:07)
[2018-03-10] MEDS: LISINOPRIL 5 MG TAB PO SCH (09:07)
[2018-03-10] MEDS: MULTIVITAMINS/MINERALS THERAP 1 TAB PO SCH (09:07)
[2018-03-10] MEDS: PANTOPRAZOLE 40MG TAB (PROTONIX) PO SCH (09:07)
[2018-03-10] MEDS: SENOKOT S TAB PO SCH (09:07)
[2018-03-10] MEDS: BRIMONIDINE 0.1% OU SCH (09:08)
[2018-03-10 14:00] VITALS: BP 149/88
--- NOTE | 2018-03-10 16:50 | IPNPDOC ---
Text Note Date of Service The patient was seen on 03/10/18. NOTE Subjective: Patient has had a bowel movement yesterday as well as this morning. Voiding well post removal of Mazariegos. Denies any abdominal pain. No nausea or vomiting. States he has a frontal headache, which he usually gets from sinus congestion. Objective: Vitals: (see below) General: No acute distress, laying comfortably in bed. HEENT: Moist mucous membranes. Neck: No JVD or lymphadenopathy Cardiac: RRR, No murmurs Pulm: Clear to auscultation b/l. No wheezing, rhonchi Abd: NT/ND + BS Ext: No edema or cyanosis Neuro: Strength 5/5 BUE and BLE. CN 2-12 intact. F to N intact Alert and oriented 3. Labs (see below) Images: CT abdomen and pelvis 03/07/18 IMPRESSION: 1. Large amount of stool in the rectosigmoid colon. Given the history of diarrhea, this suggests fecal impaction. 2. Markedly distended bladder with a volume of 1273 cc of urine. 3. The liver is enlarged. 4. Generalized colonic diverticulosis. Assessment/Plan 1. Status post Acute on chronic urinary retention with associated fecal impaction. Patient had multiple bowel movements now, we will continue bowel regimen. Patient is on Flomax. Mazariegos removed. Voiding well now. 2. Schizoaffective disorder/schizophrenia . Tardive dyskinesia, bipolar- patient is on an invega monthly, primidone, lithium for his bipolar disorder, valproate 3. Hypothyroidism on Synthroid 4. History of hypertension continue home meds 5. Diabetes mellitus continue Levemir/sliding scale insulin. Hold by mouth meds. 6. Hyperlipidemia continue home meds 7. GERD on PPI. 8. Frontal Headache. Notes h/o nasal congestion and uses flonase for it. No focal deficits. CT head pending. Update: Approx 5:30pm- Pt had results of CT Head which noted 2.4cm ICH L frontal lobe with IVH. Pt was re-evaluated, and has no focal deficits. NIH 0. I have spoken with Dr. Mayberry who recommended transfer to [facility] for neurosurgical evaluation/Neuro ICU. I have spoken to Dr. Joe, who has graciously accepted pt under his service. I have spoken to the patient as well as his sister, Jeremy, updated them on the CT results, plan for transfer to [facility], they verbalize understanding, and I have answered all of their questions to danae romero. VS,Edi, I+O VS, Ronbone, I+O Laboratory Tests 03/10/18 05:32 Red Blood Count 4.21 L, Mean Corpuscular Volume 91.2, Mean Corpuscular Hemoglobin 32.3, Mean Corpuscular Hemoglobin Concent 35.4, Red Cell Distribution Width 12.0, Calcium Level 8.6 Vital Signs Date Time Temp Pulse Resp B/P (MAP) Pulse Ox O2 Delivery O2 Flow Rate FiO2 03/10/18 14:00 98.2 63 18 149/88 (108) 98 Room Air I&O- Last 24 Hours up to 6 AM 03/10/18 06:00 Intake Total 1420 ml Output Total 1200 ml Balance 220 ml HA ERIC MD Mar 10, 2018 16:50
[2018-03-10] MEDS ORDERED: FLUTICASONE PROP 0.05% NASAL SPRAY 16 GM (FLONASE) NARES SCH (17:00)
--- NOTE | 2018-03-10 18:48 | DS.PDOC ---
Discharge Summary General Date of Admission Mar 07, 2018 Date of Discharge 03/10/18 Attending Physician: HA ERIC MD Specialist/Consultants Involve: MERLE ANAND MD Discharge Summary PROCEDURES PERFORMED DURING STAY: None. ADMITTING/DISCHARGE DIAGNOSES: 1. Intracranial hemorrhage 2. Acute on chronic urinary retention, resolved 3. Fecal impaction, resolved 4. History of hypertension 5. Diabetes mellitus 6. Hyperlipidemia 7. GERD 8. History of schizoaffective disorder/schizophrenia COMPLICATIONS/CHIEF COMPLAINT: N/V/diarrhea HISTORY OF PRESENT ILLNESS/HOSPITAL COURSE: This is a 57-year-old male with past medical history of schizoaffective disorde r/schizophrenia, bipolar disorder, drug induced Parkinsonism, GERD, BPH, hypothyroidism, diabetes mellitus who presents complaining of congestion, and diarrhea for 2 days. The patient was initially admitted and noted to have fecal impaction as well as urinary retention, Mazariegos catheter was placed, and patient had adequate bowel regimen, and has started to have regular bowel movements. Patient's symptoms have significantly improved, and Mazariegos was removed. Pt was voiding well. The patient stated his sinus congestion was improving. He then complained of a frontal headache, and states he typically has these for which he uses Flonase and zyrtec. Upon further questioning the patient, he notes that his frontal headache is slightly worse than his typical frontal headaches. Patient had no focal deficits on neurologic exam, however he was sent for a CT of the head, and noted to have a 2.4 cm frontal lobe intracranial hemorrhage. I have discussed these findings with Dr. Mayberry, who recommends transferring the patient to [facility] for close observation in neuro ICU and neurosurgical evaluation. Upon further questioning patient given the CT head results, he notes that although he has not mentioned it earlier to me, he believes he fell backwards and may have [facility] the [facility] when he was having the diarrhea. Does not note LOC/Syncope/Dizziness/CP/SOB/palpitations at the time. He notes that he did not think anything of it at the time when he presented to the hospital. I discussed the CT findings with the patient, as well as the sister over the ph one, and answered their questions to their satisfaction. I have also advised the patient that transfer to [facility] by helicopter would be ideal, however he refused. I have also discussed this with the sister (Jeremy), who agrees with the patient's decision as she notes pt only has Medicaid/Medicare, and agrees with his wishes to go by ambulance. I have explained the risks and benefits of transport by ambulance, with risks including but not limited to weakness, deterioration of mental status, and . The patient verbalized understanding and would like to proceed with ambulance transportation. Pt is hemodynamically stable. I have discussed the case with Dr. Joe, who has graciously accepted the patient under his service in [facility]. Pt will be transported [facility] when bed is available. DISCHARGE MEDICATIONS: Please see below. ALLERGIES: Please see below. PHYSICAL EXAMINATION ON DISCHARGE: Vitals: (see below) General: No acute distress, laying comfortably in bed. HEENT: Moist mucous membranes. Neck: No JVD or lymphadenopathy Cardiac: RRR, No murmurs Pulm: Clear to auscultation b/l. No wheezing, rhonchi Abd: NT/ND + BS Ext: No edema or cyanosis Neuro: Strength 5/5 BUE and BLE. CN 2-12 intact. F to N intact Alert and oriented 3. Resting tremor. LABORATORY DATA: Please see below. IMAGING: CT head on 03/10/18 with 2.4 cm left frontal hemorrhage, with IVH. PROGNOSIS: Poor ACTIVITY: Bed rest for now until evaluated by neurosurgery/neuro ICU DIET: Nothing by mouth for now until evaluated by neurosurgery. DISCHARGE PLAN/DISPOSITION: Transferred to [facility] DISCHARGE INSTRUCTIONS: 1. Follow-up with PCP, neurology, neurosurgery as indicated by [facility] DISCHARGE CONDITION: Stable. TIME SPENT ON DISCHARGE: Greater than 30 minutes. Vital Signs/I&Os Vital Signs Date Time Temp Pulse Resp B/P (MAP) Pulse Ox O2 Delivery O2 Flow Rate FiO2 03/10/18 14:00 98.2 63 18 149/88 (108) 98 Room Air l I&O- Last 24 Hours up to 6 AM 03/10/18 06:00 Intake Total 1420 ml Output Total 1200 ml Balance 220 ml Laboratory Data Labs 24H Laboratory Tests 2 03/09/18 19:52: Bedside Glucose (Misc Panel) 158H 03/10/18 05:32: Nucleated Red Blood Cells % (auto) 0.0, Anion Gap 7L, Glomerular Filtration Rate > 60.0, Blood Urea Nitrogen 11, Creatinine 0.67L, Sodium Level 137, Potassium Level 4.0, Chloride Level 103, Carbon Dioxide Level 27, Calcium Level 8.6 03/10/18 11:17: Bedside Glucose (Misc Panel) 163H 03/10/18 16:39: Bedside Glucose (Misc Panel) 131H CBC/BMP Laboratory Tests 03/10/18 05:32 Red Blood Count 4.21 L, Mean Corpuscular Volume 91.2, Mean Corpuscular Hemoglobin 32.3, Mean Corpuscular Hemoglobin Concent 35.4, Red Cell Distribution Width 12.0, Calcium Level 8.6 FSBS Laboratory Tests Test 03/09/18 19:52 03/10/18 11:17 03/10/18 16:39 Range/Units Bedside Glucose (Misc Panel) 158 163 131 70-105 MG/DL Microbiology Microbiology 03/07/18 Urine Culture - Final, Complete Discharge Medications Scheduled (Esomeprazole Magnesium) 40 Mg Cap, 40 MG PO DAILY, (Reported) PT TAKES ALL MEDS WITH APPLESAUCE B1/B2/B3/B5/B6 (Vitamin B Complex) 1 Tab Tab, 1 TAB PO DAILY, (Reported) TAKES ALL MEDICATIONS WITH APPLESAUCE Cetirizine HCl (Cetirizine HCl) 10 Mg Tab, 10 MG PO QHS, (Reported) TAKES ALL MEDICATIONS WITH APPLESAUCE Divalproex Sodium (Divalproex Sodium ER) 500 Mg Tab, 500 MG PO BID, (Reported) PT TAKES ALL MEDS WITH APPLESAUCE Gemfibrozil (Gemfibrozil) 600 Mg Tab, 600 MG PO BID, (Reported) PT TAKES ALL MEDS WITH APPLESAUCE Insulin Detemir (Levemir) 1 Units/0.01 Ml Susp, 10 UNITS SC QHS, (Reported) Latanoprost (Xalatan) 0.005 % [place], 1 DROP OU QHS, (Reported) Levocarnitine Fumarate (Carnitine) 250 Mg Cap, 125 MG PO BID, (Reported) PT TAKES ALL MEDS WITH APPLESAUCE Levothyroxine Sodium (Synthroid) 25 Mcg Tab, 25 MCG PO DAILY, (Reported) PT TAKES ALL MEDS WITH APPLESAUCE Lisinopril (Lisinopril) 5 Mg Tab, 5 MG PO DAILY, (Reported) PT TAKES ALL MEDS WITH APPLESAUCE [place] Carbonate ([place] Carbonate) 150 Mg Cap, 150 MG PO QHS, (Reported) TAKES ALL MEDICATIONS WITH APPLESAUCE [place] Carbonate ([place] Carbonate ER) 450 Mg Tabcr, 450 MG PO QAM, (Reported) TAKES ALL MEDICATIONS WITH APPLESAUCE Magnesium Oxide (Magnesium) 500 Mg Cap, 500 MG PO QPM for constipation, (Repor radha) TAKES ALL MEDICATIONS WITH APPLESAUCE Multivitamins (Centrum Silver) 1 Chw Chw, 1 TAB PO DAILY, (Reported) TAKES ALL MEDICATIONS WITH APPLESAUCE Paliperidone Palmitate (Invega Sustenna) 234 Mg/1.5 Ml Inj, 234 MG IM QMONTH, (Reported) Primidone (Primidone) 250 Mg Tab, 250 MG PO BID, (Reported) PT TAKES ALL MEDS WITH APPLESAUCE Sitagliptin Phosphate (Januvia) 100 Mg Tab, 100 MG PO DAILY, (Reported) PT TAKES ALL MEDS WITH APPLESAUCE Tamsulosin Hydrochloride (Flomax) 0.4 Mg Cap, 0.4 MG PO QHS, (Reported) TAKES ALL MEDICATIONS WITH APPLESAUCE Trihexyphenidyl HCl (Trihexyphenidyl HCl) 2 Mg Tab, 2 MG PO BID, (Reported) PT TAKES ALL MEDS WITH APPLESAUCE Scheduled PRN Docusate Sodium (Docusate Sodium) 100 Mg Tab, 100 MG PO DAILY PRN for CONSTIPA TION, (Reported) Fluticasone Propionate (Fluticasone Propionate) 50 Mcg/Act Spr, 2 SPRAY NARES DAILY PRN for CONGESTION, (Reported) Allergies Coded Allergies: No Known Drug Allergy (Verified Allergy, Unknown, 08/20/16) HA ERIC MD Mar 10, 2018 18:48
[2018-03-10 19:22] LABS: HEMATOCRIT 39.2 % (42.0-52.0); MEAN CORPUSCULAR HEMOGLOBIN 32.3 pg (27.0-33.0); MEAN CORPUSCULAR HGB CONC 35.7 g/dl (32.0-36.5); MEAN CORPUSCULAR VOLUME 90.3 fl (80.0-96.0); PLATELET COUNT, AUTOMATED 325 10^3/uL (150-450); RED BLOOD COUNT 4.34 10^6/uL (4.30-6.10); WHITE BLOOD COUNT 9.3 10^3/uL (4.0-10.0)
[2018-03-10 19:33] LABS: BLOOD UREA NITROGEN 12 MG/DL (7-18); CALCIUM LEVEL 8.7 MG/DL (8.5-10.1); CARBON DIOXIDE LEVEL 26 MEQ/L (21-32); CHLORIDE LEVEL 103 MEQ/L (98-107); CREATININE FOR GFR 0.68 MG/DL (0.70-1.30); GLOMERULAR FILTRATION RATE > 60.0 (>56); GLUCOSE, FASTING 129 MG/DL (70-100); POTASSIUM SERUM 3.8 MEQ/L (3.5-5.1); SODIUM LEVEL 136 MEQ/L (136-145)
[2018-03-10 19:41] LABS: INR 1.11; PROTHROMBIN TIME 14.4 SECONDS (12.1-14.4)
[2018-03-10 19:42] LABS: PARTIAL THROMBOPLASTIN TIME 25.1 SECONDS (25.4-37.6)
--- NOTE | 2018-03-11 09:11 | REP ---
CT HEAD WITHOUT CONTRAST: HISTORY: Headache. COMPARISON: 08/20/2016. An acute intraparenchymal hematoma 2.4 cm in width is present in the posterior left frontal lobe and head of the left caudate nucleus. Surrounding edema is present. There is mass effect with partial effacement of the overlying cortical sulci and anterior horn of the left lateral ventricle with minimal midline shift to the right. Intraventricular hemorrhage is present. The ventricular system and cortical sulci are dilated consistent with mild volume loss. There is no extracerebral collection. The visualized sinuses are clear. IMPRESSION: 1. There is a 2.4 cm acute intraparenchymal hematoma in the posterior left frontal lobe and head of the caudate nucleus. There is mass effect with minimal midline shift to the right. 2. Intraventricular hemorrhage. 3. Mild volume loss. Results were discussed with Dr. Wynn at 05:30 p.m. this date. Electronically Signed by Darius Davidson MD 03/11/2018 09:59 A
== END 2018-03-10 20:02 | disposition short-term general hospital (02) | DRG 87 ==
LOC: M ED 15:56 → M ED INP 23:51 → M MS5PR 03-08 01:04 → OBSVTOIN 03-10 13:56
PROVIDERS: ADMIT Internal Medicine; ATTEND Internal Medicine
DX: S06.300A Unspecified focal traumatic brain injury without loss of consciousness, initial encounter (principal); F25.0 Schizoaffective disorder, bipolar type; K21.9 Gastro-esophageal reflux disease without esophagitis; E11.40 Type 2 diabetes mellitus with diabetic neuropathy, unspecified; I10 Essential (primary) hypertension; R33.9 Retention of urine, unspecified; E03.9 Hypothyroidism, unspecified; N40.1 Benign prostatic hyperplasia with lower urinary tract symptoms; R53.1 Weakness; G24.01 Drug induced subacute dyskinesia; Z90.49 Acquired absence of other specified parts of digestive tract; Z79.84 Long term (current) use of oral hypoglycemic drugs; Z79.899 Other long term (current) drug therapy; K56.41 Fecal impaction; W18.09XA Striking against other object with subsequent fall, initial encounter; Y92.9 Unspecified place or not applicable

== ENCOUNTER 2018-04-14 13:33 | Inpatient (IN) | payer MEDICARE, MEDICAID ==
[~2018-04-14 13:33] MED LIST changes: +CENTCHW3 PO; +CETI5TA PO; +DOCU100T8 PO; +FLUTISP NARES; +INVE234I IM; +LITH45TASA PO; +MAGN500C PO; +VITATAB11 PO; +XALA0.007 OU
[2018-04-14 17:50] VITALS: BP 115/68
[2018-04-14] MEDS ORDERED: GLUCOSE 4 GM CHEW TABLET PO PRN (19:15)
[2018-04-14] MEDS ORDERED: GLUCAGON FOR INJ 1 MG VIAL (J1610) SC PRN (19:15)
[2018-04-14] MEDS ORDERED: DEXTROSE 50% 50 ML SYRINGE IV PRN (19:15)
[2018-04-14] MEDS ORDERED: APAP325T4 PO (20:24)
[2018-04-14] MEDS ORDERED: DEXA2TA PO (20:24)
[2018-04-14] MEDS ORDERED: BRIM1OPD OU (20:24)
[2018-04-14] MEDS ORDERED: [UNRECOGNIZED DRUG - CODE] INJ (20:30)
[2018-04-14] MEDS ORDERED: SYNT25TA PO (20:30)
[2018-04-14] MEDS ORDERED: MILK120011 PO (20:34)
[2018-04-14] MEDS ORDERED: INVE234I IM (20:35)
[2018-04-14] MEDS ORDERED: PANT40TA3 PO (20:35)
[2018-04-14] MEDS ORDERED: POLY1.4S OU (20:37)
[2018-04-14] MEDS ORDERED: SENN8.6T17 PO (20:40)
[2018-04-14] MEDS ORDERED: SODI1TA PO (20:40)
[2018-04-14] MEDS: HumaLOG INSULIN (NovoLOG) PER UNIT SC SCH (21:00)
[2018-04-14] MEDS ORDERED: MOM 30ML SUSPENSION UDC PO PRN (21:30)
[2018-04-14] MEDS ORDERED: POLYVINYL ALCOHOL OPHTH SOLN 15 ML(LIQUITEARS) OU PRN (21:30)
[2018-04-14] MEDS ORDERED: FLUTICASONE PROP 0.05% NASAL SPRAY 16 GM (FLONASE) NARES PRN (21:30)
[2018-04-14] MEDS ORDERED: MAGNESIUM OXIDE 400 MG TAB (MAG-OX) PO ONE (21:30)
[2018-04-14 22:00] VITALS: BP 119/69
[2018-04-14] MEDS: GEMFIBROZIL 600 MG TAB PO SCH (22:09)
[2018-04-14] MEDS: PRIMIDONE 250 MG TAB PO SCH (22:09)
[2018-04-14] MEDS: HEPARIN SOD (PORCINE) 5000 UNITS/ML VIAL SC SCH (22:09)
[2018-04-14] MEDS: TRIHEXYPHENIDYL 2 MG TAB PO SCH (22:10)
[2018-04-14] MEDS: DIVALPROEX 500MG *ER* TAB PO SCH (22:10)
[2018-04-14] MEDS: SENNA 8.6 MG TAB (SENOKOT) PO SCH (22:11)
[2018-04-14] MEDS: LITHIUM CARBONATE 150 MG CAP PO SCH (22:11)
[2018-04-14] MEDS: BRIMONIDINE 0.1% OPHTH SOLN 5 ML OU SCH (22:12)
[2018-04-14] MEDS: LATANOPROST 0.005% OPHTH SOLN 2.5 ML OU SCH (22:12)
[2018-04-14 22:44] LABS: HEMATOCRIT 41.9 % (42.0-52.0); HEMOGLOBIN 13.8 g/dl (13.5-17.5); MEAN CORPUSCULAR HEMOGLOBIN 31.7 pg (27.0-33.0); MEAN CORPUSCULAR HGB CONC 32.9 g/dl (32.0-36.5); MEAN CORPUSCULAR VOLUME 96.3 fl (80.0-96.0); PLATELET COUNT, AUTOMATED 329 10^3/uL (150-450); RED BLOOD COUNT 4.35 10^6/uL (4.30-6.10)
[2018-04-14 22:58] LABS: BLOOD UREA NITROGEN 16 MG/DL (7-18); CALCIUM LEVEL 8.6 MG/DL (8.5-10.1); CARBON DIOXIDE LEVEL 31 MEQ/L (21-32); CHLORIDE LEVEL 103 MEQ/L (98-107); CREATININE FOR GFR 0.79 MG/DL (0.70-1.30); GLOMERULAR FILTRATION RATE > 60.0 (>56); GLUCOSE, FASTING 144 MG/DL (70-100); POTASSIUM SERUM 4.5 MEQ/L (3.5-5.1); SODIUM LEVEL 138 MEQ/L (136-145)
--- NOTE | 2018-04-15 01:31 | HPE ---
DATE OF ADMISSION: 04/14/2018 CHIEF COMPLAINT: Transfer from [facility] for ongoing rehabilitation and treatment for glioblastoma multiforme. HISTORY OF PRESENT ILLNESS: This is a 57-year-old gentleman with past medical history of schizoaffective/schizophrenias, bipolar disorder, gastroesophageal reflux disease (GERD), diabetes, hypertension, hypothyroidism, benign prostatic hyperplasia (BPH), drug-induced parkinsonism symptoms who was recently admitted to [facility] March 07, 2018 at which time he had a left basal ganglia bleed and was eventually transferred to [facility] on March 10, 2018 for neurosurgical evaluation. It turned out that patient has a glioblastoma multiforme WHO (World Health Organization) grade 4 which was biopsied and debulked while at [facility] and patient is basically being transferred here because he did not qualify for acute rehabilitation; however, was not able to go home given his functional status and could not receive any therapy if he went to subacute rehabilitation. Therefore, he has been transferred here hoping with some physical therapy he may be able to improve to potentially go home and he can continue to receive treatment here in the hospital. While patient was at [facility] he did have a biopsy done on March 18 which confirmed glioblastoma multiforme WHO grade 4. Again, he went back to the operating room (OR) on March 29, 2018 for a debulking surgery. The debulking surgery pathology also was consistent with glioblastoma multiforme WHO grade 4 IDH wild-type. Postoperatively, he did have some complications with hyponatremia which was treated with oral sodium chloride supplementation. He also developed urinary retention necessitating Mazariegos catheter placement. While there, oncology and radiation oncology consults were placed. They coordinated with Dr. Carlisle as well as his nurse navigator, Hamida Escalera of the [facility] to have oncology followup here. Dr. Pearl with radiation oncology is also aware of the patient. Basically, he is here for ongoing physical therapy and planned treatment for his glioblastoma multiforme. He has been tolerating a by mouth diet well at [facility] and had achieved satisfactory pain control using Tylenol alone while there. He remains on a Mazariegos catheter and Flomax for the urinary retention. At this time the patient is currently denying any symptoms and says he is comfortable and has no complaints. REVIEW OF SYSTEMS: Negative in 14 out of 14 systems, except as noted above. PAST MEDICAL HISTORY: As noted above in history of present illness. PAST SURGICAL HISTORY: The patient had brain biopsy on March 18, 2018 as well as a debulking surgery March 29, 2018. Otherwise, the patient did have any prior surgeries. HOME MEDICATIONS: The patient has a long list of discharge medications from [facility]. They are: - Tylenol 325 mg up to 2 tablets every 6 hours as needed pain - vitamin B complex 1 tablet daily - Alphagan eye drops place 1 drop into both eyes twice daily - Zyrtec 10 mg daily - Decadron 2 mg 1 tablet twice daily - Depakote 500 mg twice daily - Colace 100 mg twice daily - Flonase 2 sprays each nostril once a day - gemfibrozil 600 mg by mouth twice daily - subcutaneous heparin twice daily - detemir 10 units into the skin daily - latanoprost 1 drop into both eyes nightly - Synthroid 25 mcg daily - lisinopril 5 mg daily - lithium 450 mg nightly - lithium 150 mg nightly - magnesium gluconate 500 mg daily - Milk of Magnesia 45 mL by mouth daily as needed for constipation - multivitamin 1 tablet daily - Invega Sustenna 234 mg injected into muscle every four weeks - Protonix 40 mg daily - Liquifilm Tears 1 drop into both eyes as needed - primidone 250 mg twice daily - Senna 2 tablets at night - Januvia 100 mg daily - sodium chloride 1 gram tablet take 2 tablets by mouth twice daily before meals - tamsulosin 4 mg daily - Artane 2 mg 3 times a day ALLERGIES: The patient has no known drug allergies. SOCIAL HISTORY: Prior to this hospitalization the patient lived alone. He had a 20-year smoking history. No alcohol, no recreational drugs. He is single. Never . FAMILY HISTORY: No family history of malignancy is known to the patient. PHYSICAL EXAMINATION: On examination, the patient is currently afebrile to 98.2, blood pressure 149/88, heart rate of 63, respiratory rate 18, saturating 98% on room air. GENERAL: The patient is in no acute distress and breathing comfortably. The patient's speech is dysarthric. HEENT: Oropharynx clear. The patient's left side hair is shaven and incision is healing well. CARDIOVASCULAR: Regular rate and rhythm. No murmurs, rubs or gallops. LUNGS: Clear to auscultation bilaterally. ABDOMEN: Soft, nontender, nondistended. Positive bowel sounds. EXTREMITIES: No clubbing, cyanosis or edema. NEUROLOGICAL: The patient is alert and oriented. He can follow simple commands. His speech is dysarthric. He has no focal neurological deficits. He moves all extremities equally. SKIN: The patient does have an incision from his left craniotomy which is healing well. PSYCHIATRIC: Mood is stable. LABORATORY RESULTS: The patient's laboratories are currently pending but have been ordered. No significant laboratory abnormalities noted prior to transfer here from [facility]. IMAGING: None recent. ASSESSMENT AND PLAN: This is a 57-year-old gentleman with history of schizophrenia/schizoaffective disorder, bipolar disorder, hypertension, hypothyroidism, benign prostatic hyperplasia (BPH) who initially presented to [facility] on March 11, 2018 with left basal ganglia hemorrhage transferred to [facility] where he was diagnosed with glioblastoma multiforme and transferred here for further treatment of this and aggressive rehabilitation. PROBLEMS: 1. Newly-diagnosed glioblastoma multiforme. The patient should have a consultation tomorrow with oncology who is already aware of this patient, Dr. Vásquez and radiation oncology with Dr. Pearl. They should coordinate his plan of care here in the hospital. We will give him aggressive physical therapy while he is here to optimize his performance status. The patient continues on the Decadron per discharge recommendations as well as Depakote. 2. History of diabetes. I placed him on insulin sliding scale as well as detemir. 3. For his history of schizophrenia. I am continuing his home lithium. 4. For his history of hypothyroidism, continue home Synthroid. 5. Urinary retention. He currently has a Mazariegos and is on Flomax. Primary team can consider trial while he is here. 6. Disposition planning: The patient should have aggressive physical therapy (PT)/occupational therapy (OT) and speech therapy which I have placed to facilitate either discharge home or possibly rehabilitation. The patient cannot get chemotherapy or radiation if he goes to subacute rehabilitation and this should be considered in his disposition planning. 7. Deep vein thrombosis (DVT) prophylaxis: The patient is on subcutaneous heparin.
[2018-04-15] MEDS: LEVOTHYROXINE 25MCG TABLET (0.025MG) PO SCH (05:15)
[2018-04-15] MEDS: HEPARIN SOD (PORCINE) 5000 UNITS/ML VIAL SC SCH ×3 (05:15→21:18)
[2018-04-15 06:00] VITALS: BP 119/75
[2018-04-15 06:17] LABS: HEMATOCRIT 40.3 % (42.0-52.0); HEMOGLOBIN 13.6 g/dl (13.5-17.5); MEAN CORPUSCULAR HEMOGLOBIN 31.9 pg (27.0-33.0); MEAN CORPUSCULAR HGB CONC 33.7 g/dl (32.0-36.5); MEAN CORPUSCULAR VOLUME 94.6 fl (80.0-96.0); PLATELET COUNT, AUTOMATED 314 10^3/uL (150-450); RED BLOOD COUNT 4.26 10^6/uL (4.30-6.10); WHITE BLOOD COUNT 5.6 10^3/uL (4.0-10.0)
[2018-04-15 06:43] LABS: BLOOD UREA NITROGEN 14 MG/DL (7-18); CALCIUM LEVEL 8.8 MG/DL (8.5-10.1); CARBON DIOXIDE LEVEL 27 MEQ/L (21-32); CHLORIDE LEVEL 103 MEQ/L (98-107); CREATININE FOR GFR 0.62 MG/DL (0.70-1.30); GLOMERULAR FILTRATION RATE > 60.0 (>56); GLUCOSE, FASTING 93 MG/DL (70-100); MAGNESIUM LEVEL 1.9 MG/DL (1.8-2.4); POTASSIUM SERUM 4.5 MEQ/L (3.5-5.1); SODIUM LEVEL 136 MEQ/L (136-145)
[2018-04-15] MEDS: HumaLOG INSULIN (NovoLOG) PER UNIT SC SCH ×4 (07:30→21:00)
[2018-04-15] MEDS: TAMSULOSIN 0.4 MG CAP PO SCH (08:15)
[2018-04-15] MEDS: GEMFIBROZIL 600 MG TAB PO SCH ×2 (08:15→21:18)
[2018-04-15] MEDS: SITagliptin 50 MG TAB (JANUVIA) PO SCH (08:15)
[2018-04-15] MEDS: MULTIVITAMINS/MINERALS THERAP 1 TAB PO SCH (08:15)
[2018-04-15] MEDS: PANTOPRAZOLE 40MG TAB (PROTONIX) PO SCH (08:15)
[2018-04-15] MEDS: PRIMIDONE 250 MG TAB PO SCH ×2 (08:15→21:18)
[2018-04-15] MEDS: TRIHEXYPHENIDYL 2 MG TAB PO SCH ×3 (08:16→21:18)
[2018-04-15] MEDS: CETIRIZINE (ZyrTEC) 10 MG TAB PO SCH (08:16)
[2018-04-15] MEDS: DIVALPROEX 500MG *ER* TAB PO SCH ×2 (08:16→21:18)
[2018-04-15] MEDS: DOCUSATE SODIUM 100 MG CAP PO SCH (08:16)
[2018-04-15] MEDS: VITAMIN B COMPLEX/VIT C CAP PO SCH (08:16)
[2018-04-15] MEDS: SODIUM CHLORIDE 1 GM TAB PO SCH ×2 (08:16→18:12)
[2018-04-15] MEDS: MAGNESIUM GLUCONATE 500 MG TAB PO SCH (08:16)
[2018-04-15] MEDS: LEVEMIR (INSULIN DETEMIR) 1 UNITS/0.01ML SC SCH (08:17)
[2018-04-15] MEDS: LISINOPRIL 5 MG TAB PO SCH (08:17)
[2018-04-15] MEDS: BRIMONIDINE 0.1% OPHTH SOLN 5 ML OU SCH ×2 (08:18→21:19)
[2018-04-15] MEDS: LITHIUM CARBONATE 450 MG **CR** TAB PO SCH (08:20)
--- NOTE | 2018-04-15 10:41 | NUR ---
Pt swallowing ability is wnl. Recommend continue regular diet and thin liquids. Please administer med's whole in applesauce. Requesting orders for speech evaluation for pt's progressively worsening stutter. Addendum: 04/15/18 at [address] [facility] Amended: Links added.
[2018-04-15 14:00] VITALS: BP 93/51
[2018-04-15] MEDS: SENNA 8.6 MG TAB (SENOKOT) PO SCH (21:18)
[2018-04-15] MEDS: LATANOPROST 0.005% OPHTH SOLN 2.5 ML OU SCH (21:19)
[2018-04-15] MEDS: LITHIUM CARBONATE 150 MG CAP PO SCH (21:19)
--- NOTE | 2018-04-15 21:40 | IPN ---
DATE: 04/15/2018 Patient seen and examined. No acute events overnight. Denies any chest pain, pressure, or discomfort. The patient has mild expressive aphasia, stutters intermittently. Denies any chest pain, pressure, or discomfort. No shortness of breath. No fevers or chills. VITAL SIGNS: Temperature 98.4, pulse 79, respirations 18, blood pressure 93/51, pulse oximetry 90% on room air. LABORATORY DATA: WBC 5.6, hemoglobin and hematocrit 13.6 over 40.3, platelets 314. Chemistry: Sodium 136, potassium 4.5, chloride 103, bicarbonate 27, BUN 14, creatinine 0.62, PHYSICAL EXAMINATION: GENERAL: Patient alert, mild dysarthria. HEENT: Incision healing well at the left side of patient's head. CARDIAC: Regular, S1, S2. PULMONARY: Bilaterally clear. ABDOMEN: Soft, nontender. Positive bowel sounds. EXTREMITIES: No clubbing, cyanosis, or edema. Able to move all four extremities. ASSESSMENT AND PLAN: This is a 57-year-old gentleman with history of schizophrenia, schizoaffective disorder, bipolar disorder, hypertension, lives at home alone, hypothyroidism, BPH, initially presented to [facility] on 03/11/2018 with left basal ganglia hemorrhage, transferred to [facility] where he was diagnosed with glioblastoma multiforme, subsequently had debulking procedure, transferred back to [facility] for further physical therapy and treatment. PROBLEMS: 1. Newly diagnosed glioblastoma multiforme. Consulted Dr. Pearl and Dr. Jenifer Valentine, Hematology/Oncology. Will likely schedule for evaluation at the radiation oncology suite on Saturday. Physical therapy (PT), occupational therapy (OT) and speech and swallow has been ordered. Acute rehabilitation evaluation. Decadron as per discharge recommendation, as well as Depakote. Will follow closely. 2. Diabetes mellitus, basal bolus insulin. Will monitor. Continue Januvia. 3. Dyslipidemia. Continue gemfibrozil. 4. BPH. Flomax. Will consider voiding trial. 5. History of schizophrenia, bipolar disorder, schizoaffective disorder. Continue current medication. 6. Hypothyroidism. Continue Synthroid. 7. Hypertension. Continue current medication. Patient on lisinopril. 8. Deep vein thrombosis (DVT) prophylaxis. Heparin subcu as per discharge recommendation by neurosurgery service at [facility]. DISPOSITION: Pending PT, OT, acute rehab and hematology and radiation oncology have been consulted.
[2018-04-15 22:00] VITALS: BP 108/64
[2018-04-16] MEDS: LEVOTHYROXINE 25MCG TABLET (0.025MG) PO SCH (05:52)
[2018-04-16] MEDS: HEPARIN SOD (PORCINE) 5000 UNITS/ML VIAL SC SCH ×3 (05:52→21:28)
[2018-04-16 06:00] VITALS: BP 98/60
[2018-04-16 06:40] LABS: HEMATOCRIT 37.9 % (42.0-52.0); HEMOGLOBIN 13.1 g/dl (13.5-17.5); MEAN CORPUSCULAR HEMOGLOBIN 32.3 pg (27.0-33.0); MEAN CORPUSCULAR HGB CONC 34.6 g/dl (32.0-36.5); MEAN CORPUSCULAR VOLUME 93.3 fl (80.0-96.0); PLATELET COUNT, AUTOMATED 291 10^3/uL (150-450); RED BLOOD COUNT 4.06 10^6/uL (4.30-6.10); WHITE BLOOD COUNT 5.7 10^3/uL (4.0-10.0)
[2018-04-16 07:21] LABS: BLOOD UREA NITROGEN 18 MG/DL (7-18); CALCIUM LEVEL 8.6 MG/DL (8.5-10.1); CARBON DIOXIDE LEVEL 26 MEQ/L (21-32); CHLORIDE LEVEL 105 MEQ/L (98-107); CREATININE FOR GFR 0.56 MG/DL (0.70-1.30); GLOMERULAR FILTRATION RATE > 60.0 (>56); GLUCOSE, FASTING 92 MG/DL (70-100); MAGNESIUM LEVEL 2.1 MG/DL (1.8-2.4); POTASSIUM SERUM 4.3 MEQ/L (3.5-5.1); SODIUM LEVEL 138 MEQ/L (136-145)
[2018-04-16] MEDS: LEVEMIR (INSULIN DETEMIR) 1 UNITS/0.01ML SC SCH (07:57)
[2018-04-16] MEDS: HumaLOG INSULIN (NovoLOG) PER UNIT SC SCH ×4 (07:58→21:00)
[2018-04-16] MEDS: DIVALPROEX 500MG *ER* TAB PO SCH ×2 (07:59→21:27)
[2018-04-16] MEDS: SODIUM CHLORIDE 1 GM TAB PO SCH ×2 (07:59→17:59)
[2018-04-16] MEDS: MULTIVITAMINS/MINERALS THERAP 1 TAB PO SCH (08:00)
[2018-04-16] MEDS: GEMFIBROZIL 600 MG TAB PO SCH ×2 (08:00→21:27)
[2018-04-16] MEDS: LITHIUM CARBONATE 450 MG **CR** TAB PO SCH (08:00)
[2018-04-16] MEDS: DOCUSATE SODIUM 100 MG CAP PO SCH (08:00)
[2018-04-16] MEDS: PANTOPRAZOLE 40MG TAB (PROTONIX) PO SCH (08:00)
[2018-04-16] MEDS: SITagliptin 50 MG TAB (JANUVIA) PO SCH (08:00)
[2018-04-16] MEDS: PRIMIDONE 250 MG TAB PO SCH ×2 (08:00→21:27)
[2018-04-16] MEDS: VITAMIN B COMPLEX/VIT C CAP PO SCH (08:00)
[2018-04-16] MEDS: TRIHEXYPHENIDYL 2 MG TAB PO SCH ×3 (08:00→21:27)
[2018-04-16] MEDS: MAGNESIUM GLUCONATE 500 MG TAB PO SCH (08:00)
[2018-04-16] MEDS: TAMSULOSIN 0.4 MG CAP PO SCH (08:00)
[2018-04-16] MEDS: CETIRIZINE (ZyrTEC) 10 MG TAB PO SCH (08:00)
[2018-04-16] MEDS: LISINOPRIL 5 MG TAB PO SCH (08:01)
[2018-04-16] MEDS: BRIMONIDINE 0.1% OPHTH SOLN 5 ML OU SCH ×2 (08:01→21:28)
[2018-04-16 14:00] VITALS: BP 98/61
--- NOTE | 2018-04-16 18:16 | IPNPDOC ---
Text Note Date of Service The patient was seen on 04/16/18. NOTE Patient seen and examined. No acute events overnight. Denies any chest pain, pressure, or discomfort. The patient has mild expressive aphasia, stutters intermittently. Denies any chest pain, pressure, or discomfort. No shortness of breath. No fevers or chills. PHYSICAL EXAMINATION: GENERAL: Patient alert, mild dysarthria. HEENT: Incision healing well at the left side of patient's head. CARDIAC: Regular, S1, S2. PULMONARY: Bilaterally clear. ABDOMEN: Soft, nontender. Positive bowel sounds. EXTREMITIES: No clubbing, cyanosis, or edema. Able to move all four extremities. ASSESSMENT AND PLAN: This is a 57-year-old gentleman with history of schizophrenia, schizoaffective disorder, bipolar disorder, hypertension, lives at home alone, hypothyroidism, BPH, initially presented to [facility] on 03/11/2018 with left basal ganglia hemorrhage, transferred to [facility] where he was diagnosed with glioblastoma multiforme, subsequently had debulking procedure, transferred back to [facility] for further physical therapy and treatment. PROBLEMS: 1. Newly diagnosed glioblastoma multiforme. Consulted Dr. Pearl and Dr. Jenifer Valentine, Hematology/Oncology. Will likely schedule for evaluation at the radiation oncology suite on Saturday. Physical therapy (PT), occupational therapy (OT) and speech and swallow has been ordered. Acute rehabilitation evaluation. Decadron as per discharge recommendation, as well as Depakote. Will follow closely. 2. Diabetes mellitus, basal bolus insulin. Will monitor. Continue Januvia. 3. Dyslipidemia. Continue gemfibrozil. 4. BPH. Flomax. Will consider voiding trial. 5. History of schizophrenia, bipolar disorder, schizoaffective disorder. Continue current medication. 6. Hypothyroidism. Continue Synthroid. 7. Hypertension. Continue current medication. Patient on lisinopril. 8. Deep vein thrombosis (DVT) prophylaxis. Heparin subcu as per discharge recommendation by neurosurgery service at [facility]. DISPOSITION: Pending PT, OT and hematology and radiation oncology have been consulted. VS,Fishbone, I+O VS, Fishbone, I+O Laboratory Tests 04/16/18 06:05 Red Blood Count 4.06 L, Mean Corpuscular Volume 93.3, Mean Corpuscular Hemoglobin 32.3, Mean Corpuscular Hemoglobin Concent 34.6, Red Cell Distribution Width 12.5, Calcium Level 8.6 Vital Signs Date Time Temp Pulse Resp B/P (MAP) Pulse Ox O2 Delivery O2 Flow Rate FiO2 04/16/18 14:00 97.8 115 18 98/61 (67) 93 I&O- Last 24 Hours up to 6 AM0 04/16/18 06:00 Intake Total 1920 ml Output Total 2175 ml Balance -255 ml MELISA HODGSON MD Apr 16, 2018 18:16
[2018-04-16] MEDS: SENNA 8.6 MG TAB (SENOKOT) PO SCH (21:27)
[2018-04-16] MEDS: LITHIUM CARBONATE 150 MG CAP PO SCH (21:27)
[2018-04-16] MEDS: LATANOPROST 0.005% OPHTH SOLN 2.5 ML OU SCH (21:28)
[2018-04-16 22:00] VITALS: BP 96/55
[2018-04-17 06:00] VITALS: BP 101/57
[2018-04-17] MEDS: HEPARIN SOD (PORCINE) 5000 UNITS/ML VIAL SC SCH ×3 (06:33→20:58)
[2018-04-17] MEDS: LEVOTHYROXINE 25MCG TABLET (0.025MG) PO SCH (06:33)
[2018-04-17 06:37] LABS: HEMATOCRIT 39.5 % (42.0-52.0); HEMOGLOBIN 13.2 g/dl (13.5-17.5); MEAN CORPUSCULAR HEMOGLOBIN 32.1 pg (27.0-33.0); MEAN CORPUSCULAR HGB CONC 33.4 g/dl (32.0-36.5); MEAN CORPUSCULAR VOLUME 96.1 fl (80.0-96.0); PLATELET COUNT, AUTOMATED 275 10^3/uL (150-450); RED BLOOD COUNT 4.11 10^6/uL (4.30-6.10); WHITE BLOOD COUNT 4.7 10^3/uL (4.0-10.0)
[2018-04-17 06:49] LABS: BLOOD UREA NITROGEN 16 MG/DL (7-18); CALCIUM LEVEL 8.7 MG/DL (8.5-10.1); CARBON DIOXIDE LEVEL 29 MEQ/L (21-32); CHLORIDE LEVEL 104 MEQ/L (98-107); CREATININE FOR GFR 0.69 MG/DL (0.70-1.30); GLOMERULAR FILTRATION RATE > 60.0 (>56); GLUCOSE, FASTING 90 MG/DL (70-100); MAGNESIUM LEVEL 2.1 MG/DL (1.8-2.4); POTASSIUM SERUM 4.4 MEQ/L (3.5-5.1); SODIUM LEVEL 138 MEQ/L (136-145)
[2018-04-17] MEDS: HumaLOG INSULIN (NovoLOG) PER UNIT SC SCH ×4 (07:30→20:50)
[2018-04-17] MEDS: MULTIVITAMINS/MINERALS THERAP 1 TAB PO SCH (09:07)
[2018-04-17] MEDS: TRIHEXYPHENIDYL 2 MG TAB PO SCH ×3 (09:07→20:57)
[2018-04-17] MEDS: VITAMIN B COMPLEX/VIT C CAP PO SCH (09:07)
[2018-04-17] MEDS: MAGNESIUM GLUCONATE 500 MG TAB PO SCH (09:07)
[2018-04-17] MEDS: DOCUSATE SODIUM 100 MG CAP PO SCH (09:08)
[2018-04-17] MEDS: GEMFIBROZIL 600 MG TAB PO SCH ×2 (09:08→20:57)
[2018-04-17] MEDS: DIVALPROEX 500MG *ER* TAB PO SCH ×2 (09:08→20:57)
[2018-04-17] MEDS: SITagliptin 50 MG TAB (JANUVIA) PO SCH (09:08)
[2018-04-17] MEDS: PRIMIDONE 250 MG TAB PO SCH ×2 (09:09→20:57)
[2018-04-17] MEDS: CETIRIZINE (ZyrTEC) 10 MG TAB PO SCH (09:09)
[2018-04-17] MEDS: SODIUM CHLORIDE 1 GM TAB PO SCH ×2 (09:09→17:43)
[2018-04-17] MEDS: TAMSULOSIN 0.4 MG CAP PO SCH (09:09)
[2018-04-17] MEDS: LITHIUM CARBONATE 450 MG **CR** TAB PO SCH (09:09)
[2018-04-17] MEDS: PANTOPRAZOLE 40MG TAB (PROTONIX) PO SCH (09:09)
[2018-04-17] MEDS: LISINOPRIL 5 MG TAB PO SCH (09:10)
[2018-04-17] MEDS: BRIMONIDINE 0.1% OPHTH SOLN 5 ML OU SCH ×2 (09:11→20:58)
[2018-04-17] MEDS: LEVEMIR (INSULIN DETEMIR) 1 UNITS/0.01ML SC SCH (09:11)
[2018-04-17 14:00] VITALS: BP 109/64
--- NOTE | 2018-04-17 15:01 | IPNPDOC ---
Text Note Date of Service The patient was seen on 04/17/18. NOTE Patient seen and examined. No acute events overnight. Denies any chest pain, pressure, or discomfort. The patient has mild expressive aphasia, stutters intermittently. Denies any chest pain, pressure, or discomfort. No shortness of breath. No fevers or chills. PHYSICAL EXAMINATION: GENERAL: Patient alert, mild dysarthria. HEENT: Incision healing well at the left side of patient's head. CARDIAC: Regular, S1, S2. PULMONARY: Bilaterally clear. ABDOMEN: Soft, nontender. Positive bowel sounds. EXTREMITIES: No clubbing, cyanosis, or edema. Able to move all four extremities. ASSESSMENT AND PLAN: This is a 57-year-old gentleman with history of schizophrenia, schizoaffective disorder, bipolar disorder, hypertension, lives at home alone, hypothyroidism, BPH, initially presented to [facility] on 03/11/2018 with left basal ganglia hemorrhage, transferred to [facility] where he was diagnosed with glioblastoma multiforme, subsequently had debulking procedure, transferred back to [facility] for further physical therapy and treatment. PROBLEMS: 1. Newly diagnosed glioblastoma multiforme. Consulted Dr. Pearl and Dr. Jenifer Valentine, Hematology/Oncology. Will likely schedule for evaluation at the radiation oncology suite on Saturday. Physical therapy (PT), occupational therapy (OT) and speech and swallow has been ordered. Acute rehabilitation evaluation. Decadron as per discharge recommendation, as well as Depakote. Will follow closely. 2. Diabetes mellitus, basal bolus insulin. Will monitor. Continue Januvia. 3. Dyslipidemia. Continue gemfibrozil. 4. BPH. Flomax. DC leger, voiding trial. 5. History of schizophrenia, bipolar disorder, schizoaffective disorder. Continue current medication. 6. Hypothyroidism. Continue Synthroid. 7. Hypertension. Continue current medication. Patient on lisinopril. 8. Deep vein thrombosis (DVT) prophylaxis. Heparin subcu as per discharge recommendation by neurosurgery service at [facility]. DISPOSITION: Pending PT, OT and hematology and radiation oncology have been consulted. VS,Fishbone, I+O VS, Fishbone, I+O Laboratory Tests 04/17/18 06:11 Red Blood Count 4.11 L, Mean Corpuscular Volume 96.1 H, Mean Corpuscular Hemoglobin 32.1, Mean Corpuscular Hemoglobin Concent 33.4, Red Cell Distribution Width 12.5, Calcium Level 8.7 Vital Signs Date Time Temp Pulse Resp B/P (MAP) Pulse Ox O2 Delivery O2 Flow Rate FiO2 04/17/18 14:00 98.2 86 21 109/64 (69) 92 I&O- Last 24 Hours up to 6 AM 04/17/18 06:00 Intake Total 1400 ml Output Total 2400 ml Balance -1000 ml MELISA HODGSON MD Apr 17, 2018 15:01
[2018-04-17] MEDS: LITHIUM CARBONATE 150 MG CAP PO SCH (20:57)
[2018-04-17] MEDS: SENNA 8.6 MG TAB (SENOKOT) PO SCH (20:57)
[2018-04-17] MEDS: LATANOPROST 0.005% OPHTH SOLN 2.5 ML OU SCH (20:58)
[2018-04-17 22:00] VITALS: BP 110/65
[2018-04-18 02:00] VITALS: BP 105/63
[2018-04-18] MEDS: LEVOTHYROXINE 25MCG TABLET (0.025MG) PO SCH (05:56)
[2018-04-18] MEDS: HEPARIN SOD (PORCINE) 5000 UNITS/ML VIAL SC SCH ×3 (05:56→20:26)
[2018-04-18 06:00] VITALS: BP 106/68
[2018-04-18 06:05] LABS: HEMATOCRIT 37.7 % (42.0-52.0); HEMOGLOBIN 12.7 g/dl (13.5-17.5); MEAN CORPUSCULAR HEMOGLOBIN 32.2 pg (27.0-33.0); MEAN CORPUSCULAR HGB CONC 33.7 g/dl (32.0-36.5); MEAN CORPUSCULAR VOLUME 95.7 fl (80.0-96.0); PLATELET COUNT, AUTOMATED 265 10^3/uL (150-450); RED BLOOD COUNT 3.94 10^6/uL (4.30-6.10); WHITE BLOOD COUNT 5.3 10^3/uL (4.0-10.0)
[2018-04-18 06:47] LABS: BLOOD UREA NITROGEN 16 MG/DL (7-18); CALCIUM LEVEL 8.9 MG/DL (8.5-10.1); CARBON DIOXIDE LEVEL 27 MEQ/L (21-32); CHLORIDE LEVEL 106 MEQ/L (98-107); CREATININE FOR GFR 0.66 MG/DL (0.70-1.30); GLOMERULAR FILTRATION RATE > 60.0 (>56); GLUCOSE, FASTING 105 MG/DL (70-100); POTASSIUM SERUM 4.1 MEQ/L (3.5-5.1); SODIUM LEVEL 139 MEQ/L (136-145)
[2018-04-18] MEDS: HumaLOG INSULIN (NovoLOG) PER UNIT SC SCH ×4 (07:30→20:25)
[2018-04-18] MEDS: PANTOPRAZOLE 40MG TAB (PROTONIX) PO SCH (09:17)
[2018-04-18] MEDS: TAMSULOSIN 0.4 MG CAP PO SCH (09:17)
[2018-04-18] MEDS: SITagliptin 50 MG TAB (JANUVIA) PO SCH (09:17)
[2018-04-18] MEDS: GEMFIBROZIL 600 MG TAB PO SCH ×2 (09:17→20:24)
[2018-04-18] MEDS: LISINOPRIL 5 MG TAB PO SCH (09:18)
[2018-04-18] MEDS: SODIUM CHLORIDE 1 GM TAB PO SCH ×2 (09:18→17:56)
[2018-04-18] MEDS: PRIMIDONE 250 MG TAB PO SCH ×2 (09:18→20:24)
[2018-04-18] MEDS: DIVALPROEX 500MG *ER* TAB PO SCH ×2 (09:18→20:24)
[2018-04-18] MEDS: MULTIVITAMINS/MINERALS THERAP 1 TAB PO SCH (09:18)
[2018-04-18] MEDS: MAGNESIUM GLUCONATE 500 MG TAB PO SCH (09:18)
[2018-04-18] MEDS: LEVEMIR (INSULIN DETEMIR) 1 UNITS/0.01ML SC SCH (09:19)
[2018-04-18] MEDS: DOCUSATE SODIUM 100 MG CAP PO SCH (09:19)
[2018-04-18] MEDS: CETIRIZINE (ZyrTEC) 10 MG TAB PO SCH (09:19)
[2018-04-18] MEDS: VITAMIN B COMPLEX/VIT C CAP PO SCH (09:19)
[2018-04-18] MEDS: LITHIUM CARBONATE 450 MG **CR** TAB PO SCH (09:19)
[2018-04-18] MEDS: BRIMONIDINE 0.1% OPHTH SOLN 5 ML OU SCH ×2 (09:19→20:25)
[2018-04-18] MEDS: TRIHEXYPHENIDYL 2 MG TAB PO SCH ×3 (09:19→20:24)
[2018-04-18 14:00] VITALS: BP 116/65
--- NOTE | 2018-04-18 19:08 | IPNPDOC ---
Text Note Date of Service The patient was seen on 04/18/18. NOTE Patient seen and examined. No acute events overnight. The patient has mild expressive aphasia, stutters intermittently. Denies any chest pain, pressure, or discomfort. No shortness of breath. No fevers or chills. poor historian PHYSICAL EXAMINATION: GENERAL: Patient alert, mild dysarthria. HEENT: Incision healing well at the left side of patient's head., left sided tongue deviation, EOMI b/l CARDIAC: Regular, S1, S2. PULMONARY: Bilaterally clear. ABDOMEN: Soft, nontender. Positive bowel sounds. EXTREMITIES: No clubbing, cyanosis, or edema. Able to move all four extremities. ASSESSMENT AND PLAN: This is a 57-year-old gentleman with history of schizophrenia, schizoaffective disorder, bipolar disorder, hypertension, lives at home alone, hypothyroidism, BPH, initially presented to [facility] on 03/11/2018 with left basal ganglia hemorrhage, transferred to [facility] where he was diagnosed with glioblastoma multiforme, subsequently had debulking procedure, transferred back to [facility] for further physical therapy and treatment. PROBLEMS: 1. Newly diagnosed glioblastoma multiforme. Consulted Dr. Pearl and Dr. Jenifer Valentine, Hematology/Oncology.Physical therapy (PT), occupational therapy (OT) and speech and swallow has been ordered. Decadron as per discharge recommendation, as well as Depakote. Will follow closely. PFS consult 2. Diabetes mellitus, basal bolus insulin. Will monitor. Continue Januvia. 3. Dyslipidemia. Continue gemfibrozil. 4. BPH. Flomax, proscar. failed voiding trial 5. History of schizophrenia, bipolar disorder, schizoaffective disorder. Continue current medication. 6. Hypothyroidism. Continue Synthroid. 7. Hypertension. Continue current medication. Patient on lisinopril. 8. Deep vein thrombosis (DVT) prophylaxis. Heparin subcu as per discharge recommendation by neurosurgery service at [facility]. DISPOSITION: Pending PT, OT and hematology and radiation oncology have been consulted. VS,Fishbone, I+O VS, Fishbone, I+O Laboratory Tests 04/18/18 05:34 Red Blood Count 3.94 L, Mean Corpuscular Volume 95.7, Mean Corpuscular Hemoglobin 32.2, Mean Corpuscular Hemoglobin Concent 33.7, Red Cell Distribution Width 12.3, Calcium Level 8.9 Vital Signs Date Time Temp Pulse Resp B/P (MAP) Pulse Ox O2 Delivery O2 Flow Rate FiO2 04/18/18 14:00 97.7 84 18 116/65 (82) 93 I&O- Last 24 Hours up to 6 AM 04/18/18 06:00 Intake Total 2220 ml Output Total 1925 ml Balance 295 ml MELISA HODGSON MD Apr 18, 2018 19:08
[2018-04-18] MEDS: SENNA 8.6 MG TAB (SENOKOT) PO SCH (20:24)
[2018-04-18] MEDS: FINASTERIDE 5 MG TAB PO SCH (20:24)
[2018-04-18] MEDS: LITHIUM CARBONATE 150 MG CAP PO SCH (20:24)
[2018-04-18] MEDS: LATANOPROST 0.005% OPHTH SOLN 2.5 ML OU SCH (20:25)
[2018-04-18 22:00] VITALS: BP 105/65
[2018-04-19] MEDS: LEVOTHYROXINE 25MCG TABLET (0.025MG) PO SCH (05:50)
[2018-04-19] MEDS: HEPARIN SOD (PORCINE) 5000 UNITS/ML VIAL SC SCH ×3 (05:51→22:43)
[2018-04-19 06:00] VITALS: BP 108/61
[2018-04-19 06:32] LABS: HEMATOCRIT 39.2 % (42.0-52.0); MEAN CORPUSCULAR HEMOGLOBIN 31.7 pg (27.0-33.0); MEAN CORPUSCULAR HGB CONC 33.2 g/dl (32.0-36.5); MEAN CORPUSCULAR VOLUME 95.6 fl (80.0-96.0); PLATELET COUNT, AUTOMATED 261 10^3/uL (150-450); WHITE BLOOD COUNT 8.1 10^3/uL (4.0-10.0)
[2018-04-19 07:01] LABS: BLOOD UREA NITROGEN 14 MG/DL (7-18); CALCIUM LEVEL 8.4 MG/DL (8.5-10.1); CARBON DIOXIDE LEVEL 27 MEQ/L (21-32); CHLORIDE LEVEL 106 MEQ/L (98-107); CREATININE FOR GFR 0.63 MG/DL (0.70-1.30); GLOMERULAR FILTRATION RATE > 60.0 (>56); GLUCOSE, FASTING 95 MG/DL (70-100); MAGNESIUM LEVEL 1.9 MG/DL (1.8-2.4); POTASSIUM SERUM 3.9 MEQ/L (3.5-5.1); SODIUM LEVEL 140 MEQ/L (136-145)
[2018-04-19] MEDS: HumaLOG INSULIN (NovoLOG) PER UNIT SC SCH ×4 (07:30→21:00)
[2018-04-19] MEDS: DOCUSATE SODIUM 100 MG CAP PO SCH (09:00)
[2018-04-19] MEDS: TRIHEXYPHENIDYL 2 MG TAB PO SCH ×3 (10:00→22:41)
[2018-04-19] MEDS: LEVEMIR (INSULIN DETEMIR) 1 UNITS/0.01ML SC SCH (10:00)
[2018-04-19] MEDS: VITAMIN B COMPLEX/VIT C CAP PO SCH (10:00)
[2018-04-19] MEDS: PRIMIDONE 250 MG TAB PO SCH ×2 (10:00→22:42)
[2018-04-19] MEDS: TAMSULOSIN 0.4 MG CAP PO SCH (10:01)
[2018-04-19] MEDS: GEMFIBROZIL 600 MG TAB PO SCH ×2 (10:01→22:40)
[2018-04-19] MEDS: CETIRIZINE (ZyrTEC) 10 MG TAB PO SCH (10:01)
[2018-04-19] MEDS: LITHIUM CARBONATE 450 MG **CR** TAB PO SCH (10:01)
[2018-04-19] MEDS: SITagliptin 50 MG TAB (JANUVIA) PO SCH (10:02)
[2018-04-19] MEDS: MAGNESIUM GLUCONATE 500 MG TAB PO SCH (10:03)
[2018-04-19] MEDS: SODIUM CHLORIDE 1 GM TAB PO SCH ×2 (10:03→18:16)
[2018-04-19] MEDS: PANTOPRAZOLE 40MG TAB (PROTONIX) PO SCH (10:04)
[2018-04-19] MEDS: DIVALPROEX 500MG *ER* TAB PO SCH ×2 (10:04→22:41)
[2018-04-19] MEDS: MULTIVITAMINS/MINERALS THERAP 1 TAB PO SCH (10:04)
[2018-04-19] MEDS: BRIMONIDINE 0.1% OPHTH SOLN 5 ML OU SCH ×2 (10:05→22:43)
[2018-04-19] MEDS: LISINOPRIL 5 MG TAB PO SCH (12:31)
[2018-04-19 14:00] VITALS: BP 112/59
--- NOTE | 2018-04-19 17:41 | IPNPDOC ---
Text Note Date of Service The patient was seen on 04/19/18. NOTE Patient seen and examined. No acute events overnight. The patient has mild expressive aphasia, stutters intermittently. Denies any chest pain, pressure, or discomfort. No shortness of breath. No fevers or chills. poor historian PHYSICAL EXAMINATION: GENERAL: Patient alert, mild dysarthria. HEENT: Incision healing well at the left side of patient's head., left sided tongue deviation, EOMI b/l CARDIAC: Regular, S1, S2. PULMONARY: Bilaterally clear. ABDOMEN: Soft, nontender. Positive bowel sounds. EXTREMITIES: No clubbing, cyanosis, or edema. Able to move all four extremities. ASSESSMENT AND PLAN: This is a 57-year-old gentleman with history of schizophrenia, schizoaffective disorder, bipolar disorder, hypertension, lives at home alone, hypothyroidism, BPH, initially presented to [facility] on 03/11/2018 with left basal ganglia hemorrhage, transferred to [facility] where he was diagnosed with glioblastoma multiforme, subsequently had debulking procedure, transferred back to [facility] for further physical therapy and treatment. PROBLEMS: 1. Newly diagnosed glioblastoma multiforme. Consulted Dr. Pearl and Dr. Jenifer Valentine, Hematology/Oncology.Physical therapy (PT), occupational therapy (OT) and speech and swallow has been ordered. Decadron as per discharge recommendation, as well as Depakote. Will follow closely. PFS consult. likely start radiation on Saturday next week 2. Diabetes mellitus, basal bolus insulin. Will monitor. Continue Januvia. 3. Dyslipidemia. Continue gemfibrozil. 4. BPH. Flomax, proscar. failed voiding trial 5. History of schizophrenia, bipolar disorder, schizoaffective disorder. Continue current medication. 6. Hypothyroidism. Continue Synthroid. 7. Hypertension. Continue current medication. Patient on lisinopril. 8. Deep vein thrombosis (DVT) prophylaxis. Heparin subcu as per discharge recommendation by neurosurgery service at [facility]. DISPOSITION: Pending PT, OT and hematology and radiation oncology rec. VS,Edi, I+O VS, Edi, I+O Laboratory Tests 04/19/18 06:00 Red Blood Count 4.10 L, Mean Corpuscular Volume 95.6, Mean Corpuscular Hemoglobin 31.7, Mean Corpuscular Hemoglobin Concent 33.2, Red Cell Distribution Width 12.4, Calcium Level 8.4 L Vital Signs Date Time Temp Pulse Resp B/P (MAP) Pulse Ox O2 Delivery O2 Flow Rate FiO2 04/19/18 12:31 110/64 04/19/18 06:00 99.1 75 20 95 I&O- Last 24 Hours up to 6 AM 04/19/18 06:00 Intake Total 1800 ml Output Total 2300 ml Balance -500 ml MELISA HODGSON MD Apr 19, 2018 17:41
[2018-04-19 22:00] VITALS: BP 110/64
[2018-04-19] MEDS: LITHIUM CARBONATE 150 MG CAP PO SCH (22:41)
[2018-04-19] MEDS: FINASTERIDE 5 MG TAB PO SCH (22:41)
[2018-04-19] MEDS: SENNA 8.6 MG TAB (SENOKOT) PO SCH (22:42)
[2018-04-19] MEDS: ACETAMINOPHEN TAB 650MG DOSE (2X325MG) PO PRN (22:42)
[2018-04-19] MEDS: LATANOPROST 0.005% OPHTH SOLN 2.5 ML OU SCH (22:43)
[2018-04-20 06:00] VITALS: BP 106/67
[2018-04-20] MEDS: HEPARIN SOD (PORCINE) 5000 UNITS/ML VIAL SC SCH ×3 (06:15→21:42)
[2018-04-20] MEDS: LEVOTHYROXINE 25MCG TABLET (0.025MG) PO SCH (06:15)
[2018-04-20 06:55] LABS: HEMATOCRIT 38.2 % (42.0-52.0); HEMOGLOBIN 12.8 g/dl (13.5-17.5); MEAN CORPUSCULAR HGB CONC 33.5 g/dl (32.0-36.5); MEAN CORPUSCULAR VOLUME 95.5 fl (80.0-96.0); PLATELET COUNT, AUTOMATED 245 10^3/uL (150-450); WHITE BLOOD COUNT 8.4 10^3/uL (4.0-10.0)
[2018-04-20 07:26] LABS: BLOOD UREA NITROGEN 15 MG/DL (7-18); CALCIUM LEVEL 8.6 MG/DL (8.5-10.1); CARBON DIOXIDE LEVEL 29 MEQ/L (21-32); CHLORIDE LEVEL 105 MEQ/L (98-107); CREATININE FOR GFR 0.64 MG/DL (0.70-1.30); GLOMERULAR FILTRATION RATE > 60.0 (>56); GLUCOSE, FASTING 83 MG/DL (70-100); POTASSIUM SERUM 4.1 MEQ/L (3.5-5.1); SODIUM LEVEL 140 MEQ/L (136-145)
[2018-04-20] MEDS: HumaLOG INSULIN (NovoLOG) PER UNIT SC SCH ×4 (07:30→21:00)
[2018-04-20] MEDS: LEVEMIR (INSULIN DETEMIR) 1 UNITS/0.01ML SC SCH (08:23)
[2018-04-20] MEDS: CETIRIZINE (ZyrTEC) 10 MG TAB PO SCH (08:24)
[2018-04-20] MEDS: TRIHEXYPHENIDYL 2 MG TAB PO SCH ×3 (08:24→21:41)
[2018-04-20] MEDS: LISINOPRIL 5 MG TAB PO SCH (08:24)
[2018-04-20] MEDS: SODIUM CHLORIDE 1 GM TAB PO SCH ×2 (08:24→17:40)
[2018-04-20] MEDS: MAGNESIUM GLUCONATE 500 MG TAB PO SCH (08:24)
[2018-04-20] MEDS: PRIMIDONE 250 MG TAB PO SCH ×2 (08:24→21:42)
[2018-04-20] MEDS: DOCUSATE SODIUM 100 MG CAP PO SCH (08:24)
[2018-04-20] MEDS: TAMSULOSIN 0.4 MG CAP PO SCH (08:25)
[2018-04-20] MEDS: DIVALPROEX 500MG *ER* TAB PO SCH ×2 (08:25→21:42)
[2018-04-20] MEDS: LITHIUM CARBONATE 450 MG **CR** TAB PO SCH (08:25)
[2018-04-20] MEDS: MULTIVITAMINS/MINERALS THERAP 1 TAB PO SCH (08:25)
[2018-04-20] MEDS: PANTOPRAZOLE 40MG TAB (PROTONIX) PO SCH (08:25)
[2018-04-20] MEDS: SITagliptin 50 MG TAB (JANUVIA) PO SCH (08:25)
[2018-04-20] MEDS: BRIMONIDINE 0.1% OPHTH SOLN 5 ML OU SCH ×2 (08:25→21:00)
[2018-04-20] MEDS: VITAMIN B COMPLEX/VIT C CAP PO SCH (08:25)
[2018-04-20] MEDS: GEMFIBROZIL 600 MG TAB PO SCH ×2 (08:25→21:41)
--- NOTE | 2018-04-20 15:47 | IPNPDOC ---
Text Note Date of Service The patient was seen on 04/20/18. NOTE Patient seen and examined. No acute events overnight. Denies any chest pain, pressure, or discomfort. No shortness of breath. No fevers or chills. poor historian. sleepy PHYSICAL EXAMINATION: GENERAL: Patient alert, mild dysarthria. HEENT: Incision healing well at the left side of patient's head., left sided tongue deviation, EOMI b/l CARDIAC: Regular, S1, S2. PULMONARY: Bilaterally clear. ABDOMEN: Soft, nontender. Positive bowel sounds. EXTREMITIES: No clubbing, cyanosis, or edema. Able to move all four extremities. ASSESSMENT AND PLAN: This is a 57-year-old gentleman with history of schizophrenia, schizoaffective disorder, bipolar disorder, hypertension, lives at home alone, hypothyroidism, BPH, initially presented to [facility] on 03/11/2018 with left basal ganglia hemorrhage, transferred to [facility] where he was diagnosed with glioblastoma multiforme, subsequently had debulking procedure, transferred back to [facility] for further physical therapy and treatment. PROBLEMS: 1. Newly diagnosed glioblastoma multiforme. Consulted Dr. Pearl and Dr. Jenifer Valentine, Hematology/Oncology.Physical therapy (PT), occupational therapy (OT) and speech and swallow has been ordered. Decadron as per discharge recommendation, as well as Depakote. Will follow closely. PFS consult. likely start radiation on Saturday next week 2. Diabetes mellitus, basal bolus insulin. Will monitor. Continue Januvia. 3. Dyslipidemia. Continue gemfibrozil. 4. BPH. Flomax, proscar. failed voiding trial, leger 5. History of schizophrenia, bipolar disorder, schizoaffective disorder. Continue current medication. 6. Hypothyroidism. Continue Synthroid. 7. Hypertension. Continue current medication. Patient on lisinopril. 8. Deep vein thrombosis (DVT) prophylaxis. Heparin subcu as per discharge recommendation by neurosurgery service at [facility]. DISPOSITION: Pending PT, OT and hematology and radiation oncology rec. VS,Edi, I+O VS, Edi, I+O Laboratory Tests 04/20/18 06:25 Red Blood Count 4.00 L, Mean Corpuscular Volume 95.5, Mean Corpuscular Hemoglobin 32.0, Mean Corpuscular Hemoglobin Concent 33.5, Red Cell Distribution Width 12.5, Calcium Level 8.6 Vital Signs Date Time Temp Pulse Resp B/P (MAP) Pulse Ox O2 Delivery O2 Flow Rate FiO2 04/20/18 08:24 106/67 04/20/18 06:00 98.9 76 20 96 I&O- Last 24 Hours up to 6 AM 04/20/18 06:00 Intake Total 1440 ml Output Total 1050 ml Balance 390 ml MELISA HODGSON MD Apr 20, 2018 15:47
[2018-04-20] MEDS: LATANOPROST 0.005% OPHTH SOLN 2.5 ML OU SCH (21:00)
[2018-04-20] MEDS: SENNA 8.6 MG TAB (SENOKOT) PO SCH (21:41)
[2018-04-20] MEDS: FINASTERIDE 5 MG TAB PO SCH (21:41)
[2018-04-20] MEDS: ACETAMINOPHEN TAB 650MG DOSE (2X325MG) PO PRN (21:42)
[2018-04-20] MEDS: LITHIUM CARBONATE 150 MG CAP PO SCH (21:42)
[2018-04-20 22:00] VITALS: BP 118/71
[2018-04-21] MEDS: LEVOTHYROXINE 25MCG TABLET (0.025MG) PO SCH (05:51)
[2018-04-21] MEDS: HEPARIN SOD (PORCINE) 5000 UNITS/ML VIAL SC SCH ×3 (05:51→21:58)
[2018-04-21 06:00] VITALS: BP 125/76
[2018-04-21 07:07] LABS: HEMATOCRIT 37.7 % (42.0-52.0); HEMOGLOBIN 12.5 g/dl (13.5-17.5); MEAN CORPUSCULAR HEMOGLOBIN 32.1 pg (27.0-33.0); MEAN CORPUSCULAR HGB CONC 33.2 g/dl (32.0-36.5); MEAN CORPUSCULAR VOLUME 96.7 fl (80.0-96.0); PLATELET COUNT, AUTOMATED 244 10^3/uL (150-450); WHITE BLOOD COUNT 9.6 10^3/uL (4.0-10.0)
[2018-04-21 07:29] LABS: BLOOD UREA NITROGEN 13 MG/DL (7-18); CALCIUM LEVEL 8.3 MG/DL (8.5-10.1); CARBON DIOXIDE LEVEL 28 MEQ/L (21-32); CHLORIDE LEVEL 105 MEQ/L (98-107); CREATININE FOR GFR 0.63 MG/DL (0.70-1.30); GLOMERULAR FILTRATION RATE > 60.0 (>56); GLUCOSE, FASTING 93 MG/DL (70-100); MAGNESIUM LEVEL 1.9 MG/DL (1.8-2.4); POTASSIUM SERUM 4.1 MEQ/L (3.5-5.1); SODIUM LEVEL 139 MEQ/L (136-145)
[2018-04-21] MEDS: HumaLOG INSULIN (NovoLOG) PER UNIT SC SCH ×4 (07:30→21:00)
[2018-04-21] MEDS: CETIRIZINE (ZyrTEC) 10 MG TAB PO SCH (09:57)
[2018-04-21] MEDS: PRIMIDONE 250 MG TAB PO SCH ×2 (09:57→22:02)
[2018-04-21] MEDS: TRIHEXYPHENIDYL 2 MG TAB PO SCH ×3 (09:57→22:01)
[2018-04-21] MEDS: LISINOPRIL 5 MG TAB PO SCH (09:57)
[2018-04-21] MEDS: SODIUM CHLORIDE 1 GM TAB PO SCH ×2 (09:57→18:34)
[2018-04-21] MEDS: MULTIVITAMINS/MINERALS THERAP 1 TAB PO SCH (09:58)
[2018-04-21] MEDS: SITagliptin 50 MG TAB (JANUVIA) PO SCH (09:58)
[2018-04-21] MEDS: GEMFIBROZIL 600 MG TAB PO SCH ×2 (09:58→21:57)
[2018-04-21] MEDS: DOCUSATE SODIUM 100 MG CAP PO SCH (09:58)
[2018-04-21] MEDS: DIVALPROEX 500MG *ER* TAB PO SCH ×2 (09:58→21:57)
[2018-04-21] MEDS: MAGNESIUM GLUCONATE 500 MG TAB PO SCH (09:58)
[2018-04-21] MEDS: LITHIUM CARBONATE 450 MG **CR** TAB PO SCH (09:58)
[2018-04-21] MEDS: VITAMIN B COMPLEX/VIT C CAP PO SCH (09:58)
[2018-04-21] MEDS: PANTOPRAZOLE 40MG TAB (PROTONIX) PO SCH (09:58)
[2018-04-21] MEDS: TAMSULOSIN 0.4 MG CAP PO SCH (09:58)
[2018-04-21] MEDS: LEVEMIR (INSULIN DETEMIR) 1 UNITS/0.01ML SC SCH (09:59)
[2018-04-21] MEDS: BRIMONIDINE 0.1% OPHTH SOLN 5 ML OU SCH ×2 (09:59→21:58)
--- NOTE | 2018-04-21 10:10 | RADONC ---
RADIATION ONCOLOGY SIMULATION NOTE: DATE: 04/17/2018 CHART NUMBER: [id number] Mr. Foster was taken to the CT scan for CT simulation of his brain field. CT was accomplished without difficulty or discomfort. Radiation treatment planning is underway and radiation treatments will begin subsequently. An immobilization device including a mask was created without difficulty or discomfort. It will be used throughout the course of treatment. I was physically present throughout the course of CT simulation.
--- NOTE | 2018-04-21 10:18 | CR ---
RADIATION ONCOLOGY CONSULTATION DATE: 04/17/2018 CHART NUMBER: [id number] DIAGNOSIS: Glioblastoma multiforme. GRADE: 4. ECOG PERFORMANCE STATUS: 2. CONSULTATION NOTE: Mr. Foster is a 57-year-old white male with the diagnosis of a glioblastoma multiforme of his left basal ganglia region who is presenting to us today for consultation regarding the possibility of postoperative external beam radiation therapy with IMRT / IGRT as a therapeutic option combined with Temodar chemotherapy. HISTORY OF PRESENT ILLNESS: The patient was in his usual state of health until March 07, 2018 when he was seen at [facility] for what was thought to be a left basal ganglia bleed. He was subsequently transferred to [facility] on March 10, 2018 for neurosurgical evaluation. On 03/17/2018, the patient underwent a left stereotactic brain tumor biopsy using Varioguide. The patient was found to have a grade 4 glioblastoma multiforme. The patient subsequently underwent a left frontal craniotomy for resection of tumor on 03/29/2018. Pathology revealed residual glioblastoma multiforme. The patient has done well since surgery and has been transferred up to our medical center for discussion of definitive external beam radiation therapy with IMRT / IGRT, as well as Temodar chemotherapy. PAST MEDICAL HISTORY: The patient's past medical history is positive for schizoaffective / schizophrenia disorders. He also has bipolar disorder, gastroesophageal reflex disease, diabetes, hypertension, hypothyroidism, benign prostatic hypertrophy and drug-induced parkinsonian symptoms. ALLERGIES: The patient has NO KNOWN DRUG ALLERGIES. SOCIAL HISTORY: The patient had smoked cigarettes for 20 years. He does not abuse alcohol. FAMILY HISTORY: The patient's family history is negative for brain tumors or other malignancies. REVIEW OF SYSTEMS: The patient's review of systems is positive for decreased energy, weakness in his arms and legs. He reports loss of visual acuity. He stays in bed with physical limitations and has occasional headaches. He denies nausea, vomiting, fevers, chills, night sweats, diplopia, chest pain, urinary symptoms, bone pain. PHYSICAL EXAMINATION: The patient is presenting in bed at this time. He is a well-developed, well-nourished white male in no acute distress. HEENT: Exam shows a healing surgical scar present over his left frontal region consistent with his above history. Extraocular movements are intact. There is no palpable cervical, supraclavicular, infraclavicular, axillary or inguinal lymphadenopathy present. His lungs are clear to auscultation and percussion. His heart has regular rate and rhythm. His abdomen is benign with no hepatosplenomegaly, masses or tenderness. The patient appears to be alert. He is intact to sensory and motor. He has some speech difficulties. MEDICAL NECESSITY: IMRT/IGRT is clinically indicated for the highly conformal dose planning required. The target volume is in close proximity to critical structures, such as the normal brain, brainstem, eyes, optic nerves, spinal cord. The volume of interest must be covered with narrow margins to adequately protect immediately adjacent structures. The plan requires interpretation of complex testing such as CT localization. As noted above, special planning (IMRT) and localizing (IGRT) is required and essential to maximally protect sensitive normal tissue structures which cannot be accomplished using conventional 3-dimensional planning. ASSESSMENT Clearly, the patient is a candidate for external beam radiation therapy with IMRT and I have so informed him. I have discussed with the patient in detail the potential benefits, as well as possible acute and chronic sequelae of external beam radiation therapy. We discussed logistics of treatment planning, simulation and subsequent fractionated daily radiation treatments. I have scheduled the patient for simulation today in order to expedite treatment planning and his treatments. We will be calling down the patient to initiate our treatment planning later this afternoon. In addition, the patient will need Temodar therapy with Dr. Valentine, and I will coordinate his care there of. Thank you for allowing us to participate in the care of this very pleasant gentleman. If I could be of any further assistance or provide you with any information, please feel free to contact me at anytime. Sincerely, Louis Pearl MD cc: MD Jenifer Delgado MD Aruna Ray, MD Fredrick Tontarski, PA
[2018-04-21 14:00] VITALS: BP 102/67
--- NOTE | 2018-04-21 17:25 | IPNPDOC ---
Text Note Date of Service The patient was seen on 04/21/18. NOTE Patient seen and examined. No acute events overnight. Denies any chest pain, pressure, or discomfort. No shortness of breath. No fevers or chills. poor historian. PHYSICAL EXAMINATION: GENERAL: Patient alert, mild dysarthria. HEENT: Incision healing well at the left side of patient's head., left sided tongue deviation, EOMI b/l CARDIAC: Regular, S1, S2. PULMONARY: Bilaterally clear. ABDOMEN: Soft, nontender. Positive bowel sounds. EXTREMITIES: No clubbing, cyanosis, or edema. Able to move all four extremities. ASSESSMENT AND PLAN: This is a 57-year-old gentleman with history of schizophrenia, schizoaffective disorder, bipolar disorder, hypertension, lives at home alone, hypothyroidism, BPH, initially presented to [facility] on 03/11/2018 with left basal ganglia hemorrhage, transferred to [facility] where he was diagnosed with glioblastoma multiforme, subsequently had debulking procedure, transferred back to [facility] for further physical therapy and treatment. PROBLEMS: 1. Newly diagnosed glioblastoma multiforme. Consulted Dr. Pearl and Dr. Jenifer Valentine, Hematology/Oncology.Physical therapy (PT), occupational therapy (OT) and speech and swallow has been ordered. Decadron as per discharge recommendation, as well as Depakote. Will follow closely. PFS consult. likely start radiation on likely 2. Diabetes mellitus, basal bolus insulin. Will monitor. Continue Januvia. 3. Dyslipidemia. Continue gemfibrozil. 4. BPH. Flomax, proscar. failed voiding trial, leger 5. History of schizophrenia, bipolar disorder, schizoaffective disorder. Continue current medication. 6. Hypothyroidism. Continue Synthroid. 7. Hypertension. Continue current medication. Patient on lisinopril. 8. Deep vein thrombosis (DVT) prophylaxis. Heparin subcu as per discharge recommendation by neurosurgery service at [facility]. DISPOSITION: Pending PT, OT and hematology and radiation oncology rec. VS,Fishbone, I+O VS, Fishbone, I+O Laboratory Tests 04/21/18 06:47 Red Blood Count 3.90 L, Mean Corpuscular Volume 96.7 H, Mean Corpuscular Hemoglobin 32.1, Mean Corpuscular Hemoglobin Concent 33.2, Red Cell Distribution Width 12.6, Calcium Level 8.3 L Vital Signs Date Time Temp Pulse Resp B/P (MAP) Pulse Ox O2 Delivery O2 Flow Rate FiO2 04/21/18 14:00 99.0 83 20 102/67 (22) 92 I&O- Last 24 Hours up to 6 AM 04/21/18 06:00 Intake Total 1080 ml Output Total 1550 ml Balance -470 ml MELISA HODGSON MD Apr 21, 2018 17:25
[2018-04-21] MEDS: FINASTERIDE 5 MG TAB PO SCH (21:58)
[2018-04-21] MEDS: LATANOPROST 0.005% OPHTH SOLN 2.5 ML OU SCH (21:58)
[2018-04-21 22:00] VITALS: BP 111/68
[2018-04-21] MEDS: SENNA 8.6 MG TAB (SENOKOT) PO SCH (22:01)
[2018-04-21] MEDS: LITHIUM CARBONATE 150 MG CAP PO SCH (22:02)
[2018-04-22 06:00] VITALS: BP 129/71
[2018-04-22] MEDS: LEVOTHYROXINE 25MCG TABLET (0.025MG) PO SCH (06:03)
[2018-04-22] MEDS: HEPARIN SOD (PORCINE) 5000 UNITS/ML VIAL SC SCH ×3 (06:04→22:01)
[2018-04-22 06:58] LABS: HEMATOCRIT 39.9 % (42.0-52.0); HEMOGLOBIN 13.6 g/dl (13.5-17.5); MEAN CORPUSCULAR HEMOGLOBIN 31.9 pg (27.0-33.0); MEAN CORPUSCULAR HGB CONC 34.1 g/dl (32.0-36.5); MEAN CORPUSCULAR VOLUME 93.4 fl (80.0-96.0); PLATELET COUNT, AUTOMATED 259 10^3/uL (150-450); RED BLOOD COUNT 4.27 10^6/uL (4.30-6.10); WHITE BLOOD COUNT 11.3 10^3/uL (4.0-10.0)
--- NOTE | 2018-04-22 07:17 | CR ---
DATE OF CONSULTATION: 04/18/2018 REASON FOR CONSULTATION: History of glioblastoma multiforme. This is a very pleasant 57-year-old gentleman who began to have word searching several weeks ago when he was seen and evaluated here at [facility]. He had been seen in February 2017 where he was found to have a left basal ganglion bleed. He was transferred to [facility] to see the neurosurgical service. Patient had done a formal MRI and found that the patient had a primary brain tumor. CT scan had shown a 2.4 cm acute intraparenchymal hematoma in the posterior left frontal lobe at the head of the caudate nucleus. There was a mass effect with minimal midline shift to the right concerning for possible malignancy. The patient had a subtotal resection, was transferred back to [facility] for consideration for subacute rehabilitation. He is currently able to discuss and engage the examiner with his history . He is able to move all of his extremities, however he does need help with gait and is using a walker He has been up to the bathroom on his own and has not had any seizures since he has been discharged from the hospital. PAST MEDICAL HISTORY: Includes: Diabetes. He has a history of dyslipidemia. Benign prostatic hypertrophy (BPH). Schizophrenic bipolar disorder. Hypothyroidism. Hypertension. FAMILY HISTORY: His sister is his healthcare proxy. She lives locally and is supportive. She is a believer in the holistic approaches. His other family history is otherwise noncontributory. MEDICATIONS: His medications include: - acetaminophen 325 mg by mouth every 6 hours - vitamin B complex one tablet by mouth daily - Alphagan one drop by mouth twice a day twice a day - cetirizine 10 mg by mouth daily - dexamethasone 2 mg by mouth twice a day - divalproex sodium 500 mg by mouth twice a day - docusate sodium 100 mg by mouth daily - fluticasone propionate 50 mcg to nares for congestion as needed - gemfibrozil 600 mg by mouth twice a day - sodium heparin 5000 units subcu twice a day - Levemir 10 units subcu daily - Xalatan eye drops at bedtime - levothyroxine 25 mg by mouth daily - lisinopril 5 mg by mouth daily - lithium carbonate 150 mg by mouth at bedtime and 450 mg by mouth every morning - magnesium oxide 500 mg by mouth daily - Invega Sustenna 234 mg IM every month - pantoprazole 40 mg by mouth daily - primidone 250 mg by mouth twice a day - senna 17.2 mg by mouth at bedtime - Januvia 100 mg by mouth daily - Flomax 0.4 mg daily - trihexyphenidyl hydrochlorothiazide 2 mg by mouth twice a day REVIEW OF SYSTEMS: The patient is awake, alert. He is able to engage with the examiner. He does not appear to be in any pain. He is somewhat hesitant to speech but is able to articulate his needs. He has currently no pain, no headache. No incisional pain from surgery. No problems with any vision, visual loss, problems swallowing, neck pain and denies any history of any chest pain, shortness of breath or any palpitations. He has negative for nausea, vomiting, diarrhea, constipation, change in color or caliber of his stool. On his extremities the patient has somewhat of a hesitancy of gait. He has no focal deficits. He is unsteady without the walker. He has good [id number] apposition and cerebellar functions. PHYSICAL EXAMINATION: On his physical examination his temperature is 99, pulse is 83, respiratory rate is 20, blood pressure is 102/67 and pulse oximetry is 92. HEENT is normocephalic. He has status post surgical incision, which is well-healed. No exudates. His sclera is otherwise white, nonicteric. His oropharynx is otherwise clear. His neck was supple with no adenopathy. His chest is clear to auscultation and percussion. Cardiovascular S1 and S2 are appreciated with no murmurs. His abdomen is otherwise soft, nontender. His extremities show no cyanosis, clubbing or any edema. He has no swelling of the lower legs. LABORATORIES: On his laboratories today his WBC count is 9.6. His hemoglobin/hematocrit is 12.5/37.7, MCV is 96.7, RDW is 12.5, platelets 244. On his chemistries his sodium is 139, potassium is 4.1, chloride is 105, CO2 is 28, BUN is 13, creatinine 0.63, GFR is 60 and calcium is 8.3, magnesium is 1.8. IMPRESSION: Subtotal resection for glioblastoma multiforme currently with a performance status of a 2/4 on the ECOG scale, still requiring physical therapy and rehab for total independence of daily living. PLAN: I have had a discussion with the patient's sister at the patient's bedside. The patient was included. I have advised them that I would like to do combined chemotherapy and radiation with Temodar 140 mg by mouth daily, days 1-42 of the radiation therapy followed by Temodar day 75 mg/m2 by mouth twice a day days' 1-5 months for 6 months thereafter without any radiation therapy. In discussions with the patient's healthcare proxy, there was a desire to include intravenous vitamin C therapy which is an off protocol indication. I have advised the patient's sister that this does not follow along an approved method and that the [facility] is not a research facility. We would be more than happy to accommodate evidence based medicine in the management and delivery of her brother's care, and that anything that is outside of [facility] is entirely up to them to pursue with other physicians locally. Plan is to initiate the request for the Temodar. This will have to go through a specialty pharmacy and may require authorization as well. As soon as the patient is simulated, we could more than likely get started.
[2018-04-22] MEDS: CETIRIZINE (ZyrTEC) 10 MG TAB PO SCH (09:18)
[2018-04-22] MEDS: PANTOPRAZOLE 40MG TAB (PROTONIX) PO SCH (09:18)
[2018-04-22] MEDS: GEMFIBROZIL 600 MG TAB PO SCH ×2 (09:18→22:00)
[2018-04-22] MEDS: VITAMIN B COMPLEX/VIT C CAP PO SCH (09:18)
[2018-04-22] MEDS: DOCUSATE SODIUM 100 MG CAP PO SCH (09:18)
[2018-04-22] MEDS: MULTIVITAMINS/MINERALS THERAP 1 TAB PO SCH (09:19)
[2018-04-22] MEDS: LISINOPRIL 5 MG TAB PO SCH (09:19)
[2018-04-22] MEDS: DIVALPROEX 500MG *ER* TAB PO SCH ×2 (09:19→22:00)
[2018-04-22] MEDS: TAMSULOSIN 0.4 MG CAP PO SCH (09:19)
[2018-04-22] MEDS: TRIHEXYPHENIDYL 2 MG TAB PO SCH ×3 (09:19→22:01)
[2018-04-22] MEDS: SITagliptin 50 MG TAB (JANUVIA) PO SCH (09:19)
[2018-04-22] MEDS: PRIMIDONE 250 MG TAB PO SCH ×2 (09:19→22:00)
[2018-04-22] MEDS: MAGNESIUM GLUCONATE 500 MG TAB PO SCH (09:19)
[2018-04-22] MEDS: SODIUM CHLORIDE 1 GM TAB PO SCH ×2 (09:19→17:29)
[2018-04-22] MEDS: LEVEMIR (INSULIN DETEMIR) 1 UNITS/0.01ML SC SCH (09:20)
[2018-04-22] MEDS: HumaLOG INSULIN (NovoLOG) PER UNIT SC SCH ×4 (09:20→21:00)
[2018-04-22] MEDS: BRIMONIDINE 0.1% OPHTH SOLN 5 ML OU SCH ×2 (09:20→22:01)
[2018-04-22 09:29] LABS: BLOOD UREA NITROGEN 15 MG/DL (7-18); CALCIUM LEVEL 9.1 MG/DL (8.5-10.1); CARBON DIOXIDE LEVEL 24 MEQ/L (21-32); CHLORIDE LEVEL 104 MEQ/L (98-107); CREATININE FOR GFR 0.59 MG/DL (0.70-1.30); GLOMERULAR FILTRATION RATE > 60.0 (>56); GLUCOSE, FASTING 108 MG/DL (70-100); POTASSIUM SERUM 4.1 MEQ/L (3.5-5.1); SODIUM LEVEL 138 MEQ/L (136-145)
[2018-04-22] MEDS: LITHIUM CARBONATE 450 MG **CR** TAB PO SCH (09:34)
[2018-04-22 14:00] VITALS: BP 116/70
--- NOTE | 2018-04-22 14:22 | IPNPDOC ---
Text Note Date of Service The patient was seen on 04/22/18. NOTE Subjective: Patient states is feeling well. Denies any complaints. No new neur ologic changes. Objective: Vitals: (see below) General: No acute distress, laying comfortably in bed. HEENT: Moist mucous membranes. Neck: No JVD or lymphadenopathy Cardiac: RRR, No murmurs Pulm: Clear to auscultation b/l. No wheezing, rhonchi Abd: NT/ND + BS Ext: No edema or cyanosis Neuro: Strength: Moving all extremities with no focal weakness. CN 2-12 intact. Dysmetria with F to N b/L Negative pronator drift. Negative Babinki. Alert and oriented 3. Labs (see below) Assessment/Plan 1. Newly diagnosed glioblastoma multiforme - status post debulking surgery in [facility]. Dr. Edward and Dr. Valentine on board. Patient is scheduled for chemotherapy/radiation therapy. On Depakote and Decadron. 2. Diabetes mellitus. Continue sliding scale insulin. Januvia. Consistent carb diet. 3. BPH with urinary retention- on Flomax and Proscar. Has failed a voiding trial, and has a Mazariegos catheter in place. 4. History of schizophrenia and bipolar disorder/schizoaffective disorder continue current meds. 5. Hypothyroidism on Synthroid 6. History of hypertension controlled continue lisinopril. DVT prophy: Heparin subcutaneous per d/c instructions from [facility] Dispo: Pending PT/OT/oncology/radiation oncology recommendations. VS,Fishbone, I+O VS, Fishbone, I+O Laboratory Tests 04/22/18 06:31 Red Blood Count 4.27 L, Mean Corpuscular Volume 93.4, Mean Corpuscular Hemoglobin 31.9, Mean Corpuscular Hemoglobin Concent 34.1, Red Cell Distribution Width 12.4, Calcium Level 9.1 Vital Signs Date Time Temp Pulse Resp B/P (MAP) Pulse Ox O2 Delivery O2 Flow Rate FiO2 04/22/18 09:19 129/71 04/22/18 06:00 98.4 106 17 96 I&O- Last 24 Hours up to 6 AM 04/22/18 06:00 Intake Total 1440 ml Output Total 1600 ml Balance -160 ml HA ERIC MD Apr 22, 2018 14:22
[2018-04-22 22:00] VITALS: BP 101/66
[2018-04-22] MEDS: SENNA 8.6 MG TAB (SENOKOT) PO SCH (22:00)
[2018-04-22] MEDS: FINASTERIDE 5 MG TAB PO SCH (22:00)
[2018-04-22] MEDS: LATANOPROST 0.005% OPHTH SOLN 2.5 ML OU SCH (22:01)
[2018-04-22] MEDS: LITHIUM CARBONATE 150 MG CAP PO SCH (22:01)
[2018-04-23] MEDS: LEVOTHYROXINE 25MCG TABLET (0.025MG) PO SCH (05:44)
[2018-04-23] MEDS: HEPARIN SOD (PORCINE) 5000 UNITS/ML VIAL SC SCH ×3 (05:45→23:19)
[2018-04-23 06:00] VITALS: BP 100/65
[2018-04-23 06:51] LABS: HEMATOCRIT 36.8 % (42.0-52.0); HEMOGLOBIN 12.4 g/dl (13.5-17.5); MEAN CORPUSCULAR HEMOGLOBIN 32.2 pg (27.0-33.0); MEAN CORPUSCULAR HGB CONC 33.7 g/dl (32.0-36.5); MEAN CORPUSCULAR VOLUME 95.6 fl (80.0-96.0); PLATELET COUNT, AUTOMATED 234 10^3/uL (150-450); RED BLOOD COUNT 3.85 10^6/uL (4.30-6.10); WHITE BLOOD COUNT 8.4 10^3/uL (4.0-10.0)
[2018-04-23 07:17] LABS: BLOOD UREA NITROGEN 16 MG/DL (7-18); CALCIUM LEVEL 8.6 MG/DL (8.5-10.1); CARBON DIOXIDE LEVEL 28 MEQ/L (21-32); CHLORIDE LEVEL 105 MEQ/L (98-107); CREATININE FOR GFR 0.62 MG/DL (0.70-1.30); GLOMERULAR FILTRATION RATE > 60.0 (>56); GLUCOSE, FASTING 97 MG/DL (70-100); POTASSIUM SERUM 4.2 MEQ/L (3.5-5.1); SODIUM LEVEL 139 MEQ/L (136-145)
[2018-04-23] MEDS: HumaLOG INSULIN (NovoLOG) PER UNIT SC SCH ×4 (07:30→21:00)
[2018-04-23 08:15] VITALS: BP 135/85
[2018-04-23 08:45] VITALS: BP 135/85
[2018-04-23] MEDS: SODIUM CHLORIDE 1 GM TAB PO SCH ×2 (08:51→17:45)
[2018-04-23] MEDS: DIVALPROEX 500MG *ER* TAB PO SCH ×3 (08:51→23:17)
[2018-04-23] MEDS ORDERED: INVEGA SUSTENNA 234 MG IM SCH (09:00)
[2018-04-23] MEDS: GEMFIBROZIL 600 MG TAB PO SCH ×2 (10:23→23:18)
[2018-04-23] MEDS: DOCUSATE SODIUM 100 MG CAP PO SCH ×2 (10:23→23:17)
[2018-04-23] MEDS: MULTIVITAMINS/MINERALS THERAP 1 TAB PO SCH (10:24)
[2018-04-23] MEDS: VITAMIN B COMPLEX/VIT C CAP PO SCH (10:24)
[2018-04-23] MEDS: LISINOPRIL 5 MG TAB PO SCH (10:24)
[2018-04-23] MEDS: TRIHEXYPHENIDYL 2 MG TAB PO SCH ×3 (10:24→23:18)
[2018-04-23] MEDS: MAGNESIUM GLUCONATE 500 MG TAB PO SCH (10:25)
[2018-04-23] MEDS: LITHIUM CARBONATE 450 MG **CR** TAB PO SCH (10:25)
[2018-04-23] MEDS: SITagliptin 50 MG TAB (JANUVIA) PO SCH (10:25)
[2018-04-23] MEDS: PANTOPRAZOLE 40MG TAB (PROTONIX) PO SCH (10:26)
[2018-04-23] MEDS: TAMSULOSIN 0.4 MG CAP PO SCH (10:26)
[2018-04-23] MEDS: PRIMIDONE 250 MG TAB PO SCH ×2 (10:26→23:18)
[2018-04-23] MEDS: CETIRIZINE (ZyrTEC) 10 MG TAB PO SCH (10:26)
[2018-04-23] MEDS: BRIMONIDINE 0.1% OPHTH SOLN 5 ML OU SCH ×2 (10:27→23:19)
[2018-04-23] MEDS: LEVEMIR (INSULIN DETEMIR) 1 UNITS/0.01ML SC SCH (10:27)
[2018-04-23 12:00] VITALS: BP 133/82
[2018-04-23 14:00] VITALS: BP 116/75
[2018-04-23] MEDS ORDERED: TEMOZOLOMIDE PO SCH (14:00)
--- NOTE | 2018-04-23 14:56 | IPNPDOC ---
Text Note Date of Service The patient was seen on 04/23/18. NOTE Subjective: Patient denies any active complaints. Denies any complaints. No new neurologic changes. Discussed with him about removing Mazariegos and having another voiding trial. Objective: Vitals: (see below) General: No acute distress, laying comfortably in bed. HEENT: Moist mucous membranes. Neck: No JVD or lymphadenopathy Cardiac: RRR, No murmurs Pulm: Clear to auscultation b/l. No wheezing, rhonchi Abd: NT/ND + BS Ext: No edema or cyanosis Neuro: Strength: Moving all extremities with no focal weakness. CN 2-12 intact. Dysmetria with F to N b/L Negative pronator drift. Negative Babinki. Alert and oriented 3. Labs (see below) Assessment/Plan 1. Newly diagnosed glioblastoma multiforme - status post debulking surgery in [facility]. Dr. Edward and Dr. Valentine on board. Patient is scheduled for chemotherapy/radiation therapy. On Depakote and Decadron. 2. Diabetes mellitus. Continue sliding scale insulin. Januvia. Consistent carb diet. 3. BPH with urinary retention- on Flomax and Proscar. Discontinue Mazariegos. Voiding trial. Would likely benefit from intermittent cath rather than a Mazariegos to decrease risk of infection. 4. History of schizophrenia and bipolar disorder/schizoaffective disorder continue current meds. 5. Hypothyroidism on Synthroid 6. History of hypertension controlled continue lisinopril. DVT prophy: Heparin subcutaneous per d/c instructions from [facility] Dispo: Pending PT/OT/oncology/radiation oncology recommendations. VS,Fishbone, I+O VS, Fishbone, I+O Laboratory Tests 04/23/18 06:30 Red Blood Count 3.85 L, Mean Corpuscular Volume 95.6, Mean Corpuscular Hemoglobin 32.2, Mean Corpuscular Hemoglobin Concent 33.7, Red Cell Distribution Width 12.4, Calcium Level 8.6 Vital Signs Date Time Temp Pulse Resp B/P (MAP) Pulse Ox O2 Delivery O2 Flow Rate FiO2 04/23/18 12:00 98.6 82 18 133/82 (99) 96 I&O- Last 24 Hours up to 6 AM 04/23/18 06:00 Intake Total 480 ml Output Total 1225 ml Balance -745 ml HA ERIC MD Apr 23, 2018 14:56
[2018-04-23 22:00] VITALS: BP 100/65
[2018-04-23] MEDS: LITHIUM CARBONATE 150 MG CAP PO SCH (23:17)
[2018-04-23] MEDS: FINASTERIDE 5 MG TAB PO SCH (23:18)
[2018-04-23] MEDS: SENNA 8.6 MG TAB (SENOKOT) PO SCH (23:18)
[2018-04-23] MEDS: LATANOPROST 0.005% OPHTH SOLN 2.5 ML OU SCH (23:19)
[2018-04-24 06:00] VITALS: BP 105/65
[2018-04-24] MEDS: HEPARIN SOD (PORCINE) 5000 UNITS/ML VIAL SC SCH ×3 (06:38→22:09)
[2018-04-24] MEDS: LEVOTHYROXINE 25MCG TABLET (0.025MG) PO SCH (06:38)
[2018-04-24 07:20] LABS: HEMATOCRIT 35.6 % (42.0-52.0); HEMOGLOBIN 12.2 g/dl (13.5-17.5); MEAN CORPUSCULAR HEMOGLOBIN 32.3 pg (27.0-33.0); MEAN CORPUSCULAR HGB CONC 34.3 g/dl (32.0-36.5); MEAN CORPUSCULAR VOLUME 94.2 fl (80.0-96.0); PLATELET COUNT, AUTOMATED 249 10^3/uL (150-450); RED BLOOD COUNT 3.78 10^6/uL (4.30-6.10); WHITE BLOOD COUNT 5.7 10^3/uL (4.0-10.0)
[2018-04-24] MEDS: HumaLOG INSULIN (NovoLOG) PER UNIT SC SCH ×4 (07:30→21:00)
[2018-04-24 07:50] LABS: BLOOD UREA NITROGEN 18 MG/DL (7-18); CALCIUM LEVEL 8.4 MG/DL (8.5-10.1); CARBON DIOXIDE LEVEL 26 MEQ/L (21-32); CHLORIDE LEVEL 105 MEQ/L (98-107); CREATININE FOR GFR 0.59 MG/DL (0.70-1.30); GLOMERULAR FILTRATION RATE > 60.0 (>56); GLUCOSE, FASTING 86 MG/DL (70-100); POTASSIUM SERUM 4.3 MEQ/L (3.5-5.1); SODIUM LEVEL 138 MEQ/L (136-145)
[2018-04-24 08:39] LABS: AMORPHOUS SEDIMENT SMALL (NEGATIVE); APPEARANCE, URINE CLOUDY (CLEAR); BACTERIA, URINE AUTO 2+ (NEGATIVE); BILIRUBIN, URINE AUTO NEGATIVE (NEGATIVE); BLOOD, URINE BLOOD NEGATIVE (NEGATIVE); COLOR, URINE YELLOW (YELLOW); GLUCOSE, URINE (UA) AUTO NEGATIVE (NEGATIVE); KETONE, URINE AUTO NEGATIVE (NEGATIVE); LEUKOCYTE ESTERASE, URINE AUTO 3+ (NEGATIVE); NITRITE, URINE AUTO POSITIVE (NEGATIVE); PROTEIN, URINE AUTO 2+ mg/dL (NEGATIVE); RBC, URINE AUTO 37 /HPF (0-3); SPECIFIC GRAVITY URINE AUTO 1.019 (1.002-1.035); SQUAMOUS EPITHELIAL CELL UR AU 3 /HPF (0-6); WBC, URINE AUTO TNTC /HPF (0-3)
[2018-04-24] MEDS ORDERED: TEMOZOLOMIDE PO SCH (09:00)
--- NOTE | 2018-04-24 09:35 | REP ---
PORTABLE CHEST X-RAY: Single view. HISTORY: Fever. Comparison study March 07, 2018. FINDINGS: The lungs are symmetrically aerated and free of infiltrate. Pleural angles are sharp. The patient is rotated somewhat to the left for the current radiograph. Heart is not felt to be enlarged. Pulmonary vasculature is not increased. IMPRESSION: No acute disease. Electronically Signed by Juan Chacon MD 04/24/2018 09:50 A
[2018-04-24] MEDS: SITagliptin 50 MG TAB (JANUVIA) PO SCH (10:08)
[2018-04-24] MEDS: VITAMIN B COMPLEX/VIT C CAP PO SCH (10:08)
[2018-04-24] MEDS: MAGNESIUM GLUCONATE 500 MG TAB PO SCH (10:08)
[2018-04-24] MEDS: SODIUM CHLORIDE 1 GM TAB PO SCH ×2 (10:08→18:01)
[2018-04-24] MEDS: TRIHEXYPHENIDYL 2 MG TAB PO SCH ×3 (10:08→22:08)
[2018-04-24] MEDS: PRIMIDONE 250 MG TAB PO SCH ×2 (10:09→22:08)
[2018-04-24] MEDS: LISINOPRIL 5 MG TAB PO SCH (10:09)
[2018-04-24] MEDS: LEVEMIR (INSULIN DETEMIR) 1 UNITS/0.01ML SC SCH (10:09)
[2018-04-24] MEDS: CETIRIZINE (ZyrTEC) 10 MG TAB PO SCH (10:09)
[2018-04-24] MEDS: DIVALPROEX 500MG *ER* TAB PO SCH ×2 (10:10→22:08)
[2018-04-24] MEDS: PANTOPRAZOLE 40MG TAB (PROTONIX) PO SCH (10:10)
[2018-04-24] MEDS: TAMSULOSIN 0.4 MG CAP PO SCH (10:10)
[2018-04-24] MEDS: GEMFIBROZIL 600 MG TAB PO SCH ×2 (10:10→22:08)
[2018-04-24] MEDS: LITHIUM CARBONATE 450 MG **CR** TAB PO SCH (10:10)
[2018-04-24] MEDS: DOCUSATE SODIUM 100 MG CAP PO SCH (10:10)
[2018-04-24] MEDS: MULTIVITAMINS/MINERALS THERAP 1 TAB PO SCH (10:11)
[2018-04-24] MEDS: BRIMONIDINE 0.1% OPHTH SOLN 5 ML OU SCH ×2 (10:11→22:09)
[2018-04-24 14:00] VITALS: BP 116/69
--- NOTE | 2018-04-24 15:10 | IPNPDOC ---
Text Note Date of Service The patient was seen on 04/24/18. NOTE Subjective: No new neurologic changes. Had low-grade fever this morning. No ch est palpitations. No abdominal pain. Objective: Vitals: (see below) General: No acute distress, laying comfortably in bed. HEENT: Moist mucous membranes. Neck: No JVD or lymphadenopathy Cardiac: RRR, No murmurs Pulm: Clear to auscultation b/l. No wheezing, rhonchi Abd: NT/ND + BS Ext: No edema or cyanosis Neuro: Strength: Moving all extremities with no focal weakness. CN 2-12 intact. Dysmetria with F to N b/L Negative pronator drift. Negative Babinki. Alert and oriented 3. Labs (see below) Assessment/Plan 1. Newly diagnosed glioblastoma multiforme - status post debulking surgery in [facility]. Dr. Edward and Dr. Valentine on board. Patient is scheduled for chemotherapy/radiation therapy. On Depakote and Decadron. 2. Diabetes mellitus. Continue sliding scale insulin. Januvia. Consistent carb diet. 3. BPH with urinary retention- on Flomax and Proscar. Discontinue Mazariegos. Voiding trial. Would likely benefit from intermittent cath rather than a Mazariegos to decrease risk of infection. 4. History of schizophrenia and bipolar disorder/schizoaffective disorder continue current meds. 5. Hypothyroidism on Synthroid 6. History of hypertension controlled continue lisinopril. 7. UTI started on Rocephin. Urine culture pending. DVT prophy: Heparin subcutaneous per d/c instructions from [facility] Dispo: Pending PT/OT/oncology/radiation oncology recommendations. His management on board for discharge planning. Pt would benefit from a hospital bed at home. VS,Fishbone, I+O VS, Fishbone, I+O Laboratory Tests 04/24/18 06:58 Red Blood Count 3.78 L, Mean Corpuscular Volume 94.2, Mean Corpuscular Hemoglobin 32.3, Mean Corpuscular Hemoglobin Concent 34.3, Red Cell Distribution Width 12.4, Calcium Level 8.4 L Vital Signs Date Time Temp Pulse Resp B/P (MAP) Pulse Ox O2 Delivery O2 Flow Rate FiO2 04/24/18 14:00 99.3 102 21 116/69 (85) 98 I&O- Last 24 Hours up to 6 AM 04/24/18 06:00 Intake Total 1440 ml Output Total 750 ml Balance 690 ml HA ERIC MD Apr 24, 2018 15:10
[2018-04-24] MEDS: TEMOZOLOMIDE PO SCH (15:56)
[2018-04-24] MEDS: cefTRIAXone SOD 1 GM in D5W MINI-BAG PLUS 50 ML IV SCH (16:01)
[2018-04-24] MEDS: SENNA 8.6 MG TAB (SENOKOT) PO SCH (21:00)
[2018-04-24] MEDS: FINASTERIDE 5 MG TAB PO SCH (22:07)
[2018-04-24] MEDS: LITHIUM CARBONATE 150 MG CAP PO SCH (22:08)
[2018-04-24] MEDS: LATANOPROST 0.005% OPHTH SOLN 2.5 ML OU SCH (22:09)
[2018-04-25 06:00] VITALS: BP 120/67
[2018-04-25 06:37] LABS: HEMATOCRIT 37.2 % (42.0-52.0); HEMOGLOBIN 12.5 g/dl (13.5-17.5); MEAN CORPUSCULAR HEMOGLOBIN 32.2 pg (27.0-33.0); MEAN CORPUSCULAR HGB CONC 33.6 g/dl (32.0-36.5); MEAN CORPUSCULAR VOLUME 95.9 fl (80.0-96.0); PLATELET COUNT, AUTOMATED 263 10^3/uL (150-450); RED BLOOD COUNT 3.88 10^6/uL (4.30-6.10)
[2018-04-25] MEDS: LEVOTHYROXINE 25MCG TABLET (0.025MG) PO SCH (06:46)
[2018-04-25] MEDS: HEPARIN SOD (PORCINE) 5000 UNITS/ML VIAL SC SCH ×3 (06:47→21:43)
[2018-04-25 07:05] LABS: BLOOD UREA NITROGEN 15 MG/DL (7-18); CALCIUM LEVEL 8.5 MG/DL (8.5-10.1); CARBON DIOXIDE LEVEL 27 MEQ/L (21-32); CHLORIDE LEVEL 104 MEQ/L (98-107); CREATININE FOR GFR 0.58 MG/DL (0.70-1.30); GLOMERULAR FILTRATION RATE > 60.0 (>56); GLUCOSE, FASTING 104 MG/DL (70-100); MAGNESIUM LEVEL 2.1 MG/DL (1.8-2.4); SODIUM LEVEL 138 MEQ/L (136-145)
[2018-04-25 07:08] LABS: LITHIUM LEVEL 0.57 MEQ/L (0.60-1.20); VALPROIC ACID (DEPAKOTE) 31.8 UG/ML (50.0-100.0)
[2018-04-25] MEDS: LEVEMIR (INSULIN DETEMIR) 1 UNITS/0.01ML SC SCH (10:34)
[2018-04-25] MEDS: HumaLOG INSULIN (NovoLOG) PER UNIT SC SCH ×4 (10:34→21:00)
[2018-04-25] MEDS: MAGNESIUM GLUCONATE 500 MG TAB PO SCH (10:35)
[2018-04-25] MEDS: TAMSULOSIN 0.4 MG CAP PO SCH (10:35)
[2018-04-25] MEDS: LITHIUM CARBONATE 450 MG **CR** TAB PO SCH (10:35)
[2018-04-25] MEDS: VITAMIN B COMPLEX/VIT C CAP PO SCH (10:35)
[2018-04-25] MEDS: TRIHEXYPHENIDYL 2 MG TAB PO SCH ×3 (10:35→21:45)
[2018-04-25] MEDS: DOCUSATE SODIUM 100 MG CAP PO SCH (10:35)
[2018-04-25] MEDS: DIVALPROEX 500MG *ER* TAB PO SCH ×2 (10:36→21:44)
[2018-04-25] MEDS: GEMFIBROZIL 600 MG TAB PO SCH ×2 (10:36→21:44)
[2018-04-25] MEDS: MULTIVITAMINS/MINERALS THERAP 1 TAB PO SCH (10:37)
[2018-04-25] MEDS: CETIRIZINE (ZyrTEC) 10 MG TAB PO SCH (10:37)
[2018-04-25] MEDS: PRIMIDONE 250 MG TAB PO SCH ×2 (10:37→21:44)
[2018-04-25] MEDS: LISINOPRIL 5 MG TAB PO SCH (10:37)
[2018-04-25] MEDS: SITagliptin 50 MG TAB (JANUVIA) PO SCH (10:37)
[2018-04-25] MEDS: PANTOPRAZOLE 40MG TAB (PROTONIX) PO SCH (10:38)
[2018-04-25] MEDS: BRIMONIDINE 0.1% OPHTH SOLN 5 ML OU SCH ×2 (10:39→21:45)
[2018-04-25] MEDS: SODIUM CHLORIDE 1 GM TAB PO SCH ×2 (10:52→18:02)
--- NOTE | 2018-04-25 11:42 | IPNPDOC ---
Text Note Date of Service The patient was seen on 04/25/18. NOTE Subjective: No new neurologic changes. Voiding well. No chest palpitations. No abdominal pain. Objective: Vitals: (see below) General: No acute distress, laying comfortably in bed. HEENT: Moist mucous membranes. Neck: No JVD or lymphadenopathy Cardiac: RRR, No murmurs Pulm: Clear to auscultation b/l. No wheezing, rhonchi Abd: NT/ND + BS Ext: No edema or cyanosis Neuro: Strength: Moving all extremities with no focal weakness. CN 2-12 intact. Dysmetria with F to N b/L Negative pronator drift. Negative Babinki. Alert and oriented 3. Labs (see below) Assessment/Plan 1. Newly diagnosed glioblastoma multiforme - status post debulking surgery in [facility]. Dr. Edward and Dr. Valentine on board. Patient is scheduled for chemotherapy/radiation therapy. On Depakote and Decadron. 2. Diabetes mellitus. Continue sliding scale insulin. Januvia. Consistent carb diet. 3. BPH with urinary retention- on Flomax and Proscar. Discontinue Mazariegos. Voiding trial. Would likely benefit from intermittent cath rather than a Mazariegos to decrease risk of infection. 4. History of schizophrenia and bipolar disorder/schizoaffective disorder continue current meds. 5. Hypothyroidism on Synthroid 6. History of hypertension controlled continue lisinopril. 7. UTI started on Rocephin. Urine culture pending. Afebrile overnight. DVT prophy: Heparin subcutaneous per d/c instructions from [facility] Dispo: Pending PT/OT/oncology/radiation oncology recommendations. Case management on board for discharge planning. Pt would benefit from a hospital bed at home. Overall prognosis guarded. VS,Fishbone, I+O VS, Fishbone, I+O Laboratory Tests 04/25/18 06:05 Red Blood Count 3.88 L, Mean Corpuscular Volume 95.9, Mean Corpuscular Hemoglobin 32.2, Mean Corpuscular Hemoglobin Concent 33.6, Red Cell Distribution Width 12.5, Calcium Level 8.5 Vital Signs Date Time Temp Pulse Resp B/P (MAP) Pulse Ox O2 Delivery O2 Flow Rate FiO2 04/25/18 10:37 106/72 04/25/18 06:00 97.8 85 20 96 I&O- Last 24 Hours up to 6 AM 04/25/18 06:00 Intake Total 1920 ml Output Total 400 ml Balance 1520 ml HA ERIC MD Apr 25, 2018 11:42
[2018-04-25 14:00] VITALS: BP 106/72
[2018-04-25] MEDS: cefTRIAXone SOD 1 GM in D5W MINI-BAG PLUS 50 ML IV SCH (15:35)
[2018-04-25] MEDS: TEMOZOLOMIDE PO SCH (15:36)
[2018-04-25] MEDS: LITHIUM CARBONATE 150 MG CAP PO SCH (21:43)
[2018-04-25] MEDS: SENNA 8.6 MG TAB (SENOKOT) PO SCH (21:44)
[2018-04-25] MEDS: FINASTERIDE 5 MG TAB PO SCH (21:44)
[2018-04-25] MEDS: LATANOPROST 0.005% OPHTH SOLN 2.5 ML OU SCH (21:45)
[2018-04-25 22:00] VITALS: BP 103/68
[2018-04-26 06:00] VITALS: BP 94/61
[2018-04-26 06:34] LABS: HEMATOCRIT 35.6 % (42.0-52.0); HEMOGLOBIN 11.8 g/dl (13.5-17.5); MEAN CORPUSCULAR HEMOGLOBIN 32.2 pg (27.0-33.0); MEAN CORPUSCULAR HGB CONC 33.1 g/dl (32.0-36.5); PLATELET COUNT, AUTOMATED 262 10^3/uL (150-450); RED BLOOD COUNT 3.67 10^6/uL (4.30-6.10); WHITE BLOOD COUNT 5.3 10^3/uL (4.0-10.0)
[2018-04-26] MEDS: HEPARIN SOD (PORCINE) 5000 UNITS/ML VIAL SC SCH ×3 (06:44→20:10)
[2018-04-26] MEDS: LEVOTHYROXINE 25MCG TABLET (0.025MG) PO SCH (06:44)
[2018-04-26 06:57] LABS: BLOOD UREA NITROGEN 16 MG/DL (7-18); CALCIUM LEVEL 8.3 MG/DL (8.5-10.1); CARBON DIOXIDE LEVEL 28 MEQ/L (21-32); CHLORIDE LEVEL 106 MEQ/L (98-107); GLOMERULAR FILTRATION RATE > 60.0 (>56); GLUCOSE, FASTING 84 MG/DL (70-100); MAGNESIUM LEVEL 2.1 MG/DL (1.8-2.4); POTASSIUM SERUM 4.3 MEQ/L (3.5-5.1); SODIUM LEVEL 140 MEQ/L (136-145)
[2018-04-26] MEDS: HumaLOG INSULIN (NovoLOG) PER UNIT SC SCH ×4 (07:30→20:00)
[2018-04-26] MEDS: LEVEMIR (INSULIN DETEMIR) 1 UNITS/0.01ML SC SCH (09:00)
[2018-04-26] MEDS: SITagliptin 50 MG TAB (JANUVIA) PO SCH (10:01)
[2018-04-26] MEDS: DIVALPROEX 500MG *ER* TAB PO SCH ×2 (10:01→20:10)
[2018-04-26] MEDS: LISINOPRIL 5 MG TAB PO SCH (10:02)
[2018-04-26] MEDS: SODIUM CHLORIDE 1 GM TAB PO SCH ×2 (10:03→18:41)
[2018-04-26] MEDS: TRIHEXYPHENIDYL 2 MG TAB PO SCH ×3 (10:03→20:10)
[2018-04-26] MEDS: TAMSULOSIN 0.4 MG CAP PO SCH (10:03)
[2018-04-26] MEDS: LITHIUM CARBONATE 450 MG **CR** TAB PO SCH (10:04)
[2018-04-26] MEDS: PRIMIDONE 250 MG TAB PO SCH ×2 (10:04→20:10)
[2018-04-26] MEDS: VITAMIN B COMPLEX/VIT C CAP PO SCH (10:04)
[2018-04-26] MEDS: PANTOPRAZOLE 40MG TAB (PROTONIX) PO SCH (10:04)
[2018-04-26] MEDS: GEMFIBROZIL 600 MG TAB PO SCH ×2 (10:05→20:10)
[2018-04-26] MEDS: MULTIVITAMINS/MINERALS THERAP 1 TAB PO SCH (10:06)
[2018-04-26] MEDS: MAGNESIUM GLUCONATE 500 MG TAB PO SCH (10:07)
[2018-04-26] MEDS: CETIRIZINE (ZyrTEC) 10 MG TAB PO SCH (10:08)
[2018-04-26] MEDS: BRIMONIDINE 0.1% OPHTH SOLN 5 ML OU SCH ×3 (10:09→21:56)
[2018-04-26 14:00] VITALS: BP 114/66
[2018-04-26] MEDS: cefTRIAXone SOD 1 GM in D5W MINI-BAG PLUS 50 ML IV SCH (16:34)
[2018-04-26] MEDS: TEMOZOLOMIDE PO SCH (16:34)
[2018-04-26] MEDS: SENNA 8.6 MG TAB (SENOKOT) PO SCH (20:10)
[2018-04-26] MEDS: FINASTERIDE 5 MG TAB PO SCH (20:10)
[2018-04-26] MEDS: LITHIUM CARBONATE 150 MG CAP PO SCH (20:10)
--- NOTE | 2018-04-26 21:06 | IPN ---
DATE: 04/26/2018 The patient is seen and examined. No acute events overnight. Denies any chest pain, pressure or discomfort. Denies any fevers or chills. Denies any abdominal pain. VITAL SIGNS: Temperature 99.2, pulse 92, respirations 20, blood pressure 114/66, pulse oximetry 99% on room air. LABORATORY DATA: WBC 5.3, hemoglobin and hematocrit 11.8/35.6, platelets 262. Chemistry: Sodium 140, potassium 4.3, chloride 106, bicarbonate 28, BUN 16, creatinine 0.6. PHYSICAL EXAMINATION GENERAL: The patient alert, comfortable and in no acute distress. HEENT: Moist mucous membranes. Neck is supple. No jugular venous distention (JVD). CARDIAC: Regular. S1, S2. PULMONARY: Bilaterally clear. ABDOMEN: Soft, nontender. Positive bowel sounds. EXTREMITIES: No clubbing, cyanosis or edema. NEUROLOGIC: Left sided tongue deviation. Other cranial nerves grossly intact. Symmetrical strength in bilateral upper and lower. Alert and oriented times three. ASSESSMENT AND PLAN: This is a 57-year-old male patient with underlying medical history of schizophrenia, schizoaffective disorder, bipolar disorder, hypertension, who lives at home, hypothyroidism, benign prostatic hypertrophy (BPH), initially presented to [facility] on 03/11/2018 with left basal ganglia hemorrhage, transferred to [facility]. The patient was diagnosed with glioblastoma multiforme. Subsequently had a debulking procedure and transferred back to [facility] for further treatment. 1. Newly diagnosed glioblastoma multiforme. Status post debulking procedure at [facility]. Dr. Pearl and Dr. Valentine have been on consult. Scheduled for chemotherapy and radiation therapy. Continue Depakote and Decadron. 2. Diabetes mellitus. Insulin as ordered. Januvia. Consistent carbohydrate diet. 3. Benign prostatic hypertrophy (BPH) with urinary retention. Continue Flomax and Proscar. Mazariegos catheter has been discontinued to decrease the risk of infection. 4. History of schizophrenia and bipolar disorder and schizoaffective disorder. Continue current medications. 5. Hypothyroidism. Continue Synthroid. 6. History of hypertension. Continue blood pressure medications. 7. Urinary tract infection (UTI). Followup urine culture, grew Escherichia (E) coli, pansensitive. The patient is on Rocephin. Continue Rocephin for catheter associated UTI. 8. Deep vein thrombosis (DVT) prophylaxis. Heparin subcutaneously. DISPOSITION: Physical therapy (PT), occupational therapy (OT). Oncology, radiation. Patient and family services (PFS) has been consulted.
[2018-04-26] MEDS: LATANOPROST 0.005% OPHTH SOLN 2.5 ML OU SCH ×2 (21:17→21:56)
[2018-04-26 22:00] VITALS: BP 111/73
[2018-04-27] MEDS: LEVOTHYROXINE 25MCG TABLET (0.025MG) PO SCH (05:40)
[2018-04-27] MEDS: HEPARIN SOD (PORCINE) 5000 UNITS/ML VIAL SC SCH ×3 (05:40→22:19)
[2018-04-27 06:00] VITALS: BP 110/65
[2018-04-27 06:46] LABS: HEMATOCRIT 35.6 % (42.0-52.0); HEMOGLOBIN 11.9 g/dl (13.5-17.5); MEAN CORPUSCULAR HEMOGLOBIN 31.9 pg (27.0-33.0); MEAN CORPUSCULAR HGB CONC 33.4 g/dl (32.0-36.5); MEAN CORPUSCULAR VOLUME 95.4 fl (80.0-96.0); PLATELET COUNT, AUTOMATED 277 10^3/uL (150-450); RED BLOOD COUNT 3.73 10^6/uL (4.30-6.10); WHITE BLOOD COUNT 5.6 10^3/uL (4.0-10.0)
[2018-04-27 06:50] LABS: BLOOD UREA NITROGEN 14 MG/DL (7-18); CALCIUM LEVEL 8.4 MG/DL (8.5-10.1); CARBON DIOXIDE LEVEL 29 MEQ/L (21-32); CHLORIDE LEVEL 106 MEQ/L (98-107); GLOMERULAR FILTRATION RATE > 60.0 (>56); GLUCOSE, FASTING 78 MG/DL (70-100); MAGNESIUM LEVEL 2.1 MG/DL (1.8-2.4); POTASSIUM SERUM 4.2 MEQ/L (3.5-5.1); SODIUM LEVEL 140 MEQ/L (136-145)
[2018-04-27] MEDS: HumaLOG INSULIN (NovoLOG) PER UNIT SC SCH ×4 (07:30→21:00)
[2018-04-27] MEDS: SODIUM CHLORIDE 1 GM TAB PO SCH ×2 (08:08→16:41)
[2018-04-27] MEDS: VITAMIN B COMPLEX/VIT C CAP PO SCH (08:09)
[2018-04-27] MEDS: ACETAMINOPHEN TAB 650MG DOSE (2X325MG) PO PRN ×2 (08:09→22:19)
[2018-04-27] MEDS: LITHIUM CARBONATE 450 MG **CR** TAB PO SCH (08:09)
[2018-04-27] MEDS: SITagliptin 50 MG TAB (JANUVIA) PO SCH (08:09)
[2018-04-27] MEDS: CETIRIZINE (ZyrTEC) 10 MG TAB PO SCH (08:10)
[2018-04-27] MEDS: PANTOPRAZOLE 40MG TAB (PROTONIX) PO SCH (08:10)
[2018-04-27] MEDS: LISINOPRIL 5 MG TAB PO SCH (08:10)
[2018-04-27] MEDS: DOCUSATE SODIUM 100 MG CAP PO SCH (08:10)
[2018-04-27] MEDS: DIVALPROEX 500MG *ER* TAB PO SCH ×2 (08:10→22:18)
[2018-04-27] MEDS: GEMFIBROZIL 600 MG TAB PO SCH ×2 (08:10→22:18)
[2018-04-27] MEDS: MAGNESIUM GLUCONATE 500 MG TAB PO SCH (08:10)
[2018-04-27] MEDS: PRIMIDONE 250 MG TAB PO SCH ×2 (08:10→22:18)
[2018-04-27] MEDS: TRIHEXYPHENIDYL 2 MG TAB PO SCH ×3 (08:10→22:18)
[2018-04-27] MEDS: TAMSULOSIN 0.4 MG CAP PO SCH (08:10)
[2018-04-27] MEDS: MULTIVITAMINS/MINERALS THERAP 1 TAB PO SCH (08:10)
[2018-04-27] MEDS: LEVEMIR (INSULIN DETEMIR) 1 UNITS/0.01ML SC SCH (08:11)
[2018-04-27] MEDS: BRIMONIDINE 0.1% OPHTH SOLN 5 ML OU SCH ×2 (08:12→22:19)
[2018-04-27 14:00] VITALS: BP 129/71
[2018-04-27] MEDS: cefTRIAXone SOD 1 GM in D5W MINI-BAG PLUS 50 ML IV SCH (16:41)
[2018-04-27] MEDS: TEMOZOLOMIDE PO SCH (16:43)
--- NOTE | 2018-04-27 18:00 | IPNPDOC ---
Text Note Date of Service The patient was seen on 04/27/18. NOTE The patient is seen and examined. No acute events overnight. Denies any chest pain, pressure or discomfort. Denies any fevers or chills. Denies any abdominal pain. PHYSICAL EXAMINATION GENERAL: The patient alert, comfortable and in no acute distress. HEENT: Moist mucous membranes. Neck is supple. No jugular venous distention (JVD). CARDIAC: Regular. S1, S2. PULMONARY: Bilaterally clear. ABDOMEN: Soft, nontender. Positive bowel sounds. EXTREMITIES: No clubbing, cyanosis or edema. NEUROLOGIC: Left sided tongue deviation. Other cranial nerves grossly intact. Symmetrical strength in bilateral upper and lower. Alert and oriented times three. ASSESSMENT AND PLAN: This is a 57-year-old male patient with underlying medical history of schizophrenia, schizoaffective disorder, bipolar disorder, hypertension, who lives at home, hypothyroidism, benign prostatic hypertrophy (BPH), initially presented to [facility] on 03/11/2018 with left basal ganglia hemorrhage, transferred to [facility]. The patient was diagnosed with glioblastoma multiforme. Subsequently had a debulking procedure and transferred back to [facility] for further treatment. 1. Newly diagnosed glioblastoma multiforme. Status post debulking procedure at [facility]. Dr. Pearl and Dr. Valentine have been on consult. Scheduled for chemotherapy and radiation therapy. Continue Depakote and Decadron. 2. Diabetes mellitus. Insulin as ordered. Januvia. Consistent carbohydrate diet. 3. Benign prostatic hypertrophy (BPH) with urinary retention. Continue Flomax and Proscar. Mazariegos catheter has been discontinued to decrease the risk of infection. 4. History of schizophrenia and bipolar disorder and schizoaffective disorder. Continue current medications. 5. Hypothyroidism. Continue Synthroid. 6. History of hypertension. Continue blood pressure medications. 7. Urinary tract infection (UTI). Followup urine culture, grew Escherichia (E) coli, pansensitive. The patient is on Rocephin. Continue Rocephin for catheter associated UTI. 7-10 days of antibiotics 8. Deep vein thrombosis (DVT) prophylaxis. Heparin subcutaneously. DISPOSITION: Physical therapy (PT), occupational therapy (OT). Oncology, radiation. Patient and family services (PFS) has been consulted. VS,Roberte, I+O VS, Fishbone, I+O Laboratory Tests 04/27/18 06:01 Red Blood Count 3.73 L, Mean Corpuscular Volume 95.4, Mean Corpuscular Hemoglobin 31.9, Mean Corpuscular Hemoglobin Concent 33.4, Red Cell Distribution Width 12.3, Calcium Level 8.4 L Vital Signs Date Time Temp Pulse Resp B/P (MAP) Pulse Ox O2 Delivery O2 Flow Rate FiO2 04/27/18 14:00 98.7 87 20 129/71 (90) 99 l I&O- Last 24 Hours up to 6 AM 04/27/18 06:00 Intake Total 2100 ml Balance 2100 ml MELISA HODGSON MD Apr 27, 2018 18:00
[2018-04-27 22:00] VITALS: BP 101/64
[2018-04-27] MEDS: FINASTERIDE 5 MG TAB PO SCH (22:17)
[2018-04-27] MEDS: SENNA 8.6 MG TAB (SENOKOT) PO SCH (22:18)
[2018-04-27] MEDS: LITHIUM CARBONATE 150 MG CAP PO SCH (22:19)
[2018-04-27] MEDS: LATANOPROST 0.005% OPHTH SOLN 2.5 ML OU SCH (22:20)
[2018-04-28] MEDS: HEPARIN SOD (PORCINE) 5000 UNITS/ML VIAL SC SCH ×3 (05:39→21:44)
[2018-04-28] MEDS: LEVOTHYROXINE 25MCG TABLET (0.025MG) PO SCH (05:39)
[2018-04-28 06:00] VITALS: BP 108/65
[2018-04-28 06:32] LABS: HEMATOCRIT 36.4 % (42.0-52.0); HEMOGLOBIN 12.3 g/dl (13.5-17.5); MEAN CORPUSCULAR HEMOGLOBIN 31.5 pg (27.0-33.0); MEAN CORPUSCULAR HGB CONC 33.8 g/dl (32.0-36.5); MEAN CORPUSCULAR VOLUME 93.3 fl (80.0-96.0); PLATELET COUNT, AUTOMATED 300 10^3/uL (150-450); WHITE BLOOD COUNT 4.8 10^3/uL (4.0-10.0)
[2018-04-28 07:05] LABS: BLOOD UREA NITROGEN 13 MG/DL (7-18); CALCIUM LEVEL 8.5 MG/DL (8.5-10.1); CARBON DIOXIDE LEVEL 28 MEQ/L (21-32); CHLORIDE LEVEL 105 MEQ/L (98-107); GLOMERULAR FILTRATION RATE > 60.0 (>56); GLUCOSE, FASTING 93 MG/DL (70-100); MAGNESIUM LEVEL 1.9 MG/DL (1.8-2.4); POTASSIUM SERUM 4.2 MEQ/L (3.5-5.1); SODIUM LEVEL 139 MEQ/L (136-145)
[2018-04-28 08:15] VITALS: BP 112/82
[2018-04-28 08:17] VITALS: BP 112/82
[2018-04-28] MEDS: CEPHALEXIN 500 MG CAP PO SCH ×2 (09:00→21:45)
[2018-04-28] MEDS: HumaLOG INSULIN (NovoLOG) PER UNIT SC SCH ×4 (09:37→21:00)
[2018-04-28] MEDS: LEVEMIR (INSULIN DETEMIR) 1 UNITS/0.01ML SC SCH (09:37)
[2018-04-28] MEDS: MAGNESIUM GLUCONATE 500 MG TAB PO SCH (09:38)
[2018-04-28] MEDS: TRIHEXYPHENIDYL 2 MG TAB PO SCH ×3 (09:38→21:45)
[2018-04-28] MEDS: LITHIUM CARBONATE 450 MG **CR** TAB PO SCH (09:38)
[2018-04-28] MEDS: VITAMIN B COMPLEX/VIT C CAP PO SCH (09:38)
[2018-04-28] MEDS: TAMSULOSIN 0.4 MG CAP PO SCH (09:38)
[2018-04-28] MEDS: CETIRIZINE (ZyrTEC) 10 MG TAB PO SCH (09:39)
[2018-04-28] MEDS: SITagliptin 50 MG TAB (JANUVIA) PO SCH (09:39)
[2018-04-28] MEDS: PRIMIDONE 250 MG TAB PO SCH ×2 (09:39→21:45)
[2018-04-28] MEDS: MULTIVITAMINS/MINERALS THERAP 1 TAB PO SCH (09:40)
[2018-04-28] MEDS: GEMFIBROZIL 600 MG TAB PO SCH ×2 (09:40→21:44)
[2018-04-28] MEDS: PANTOPRAZOLE 40MG TAB (PROTONIX) PO SCH (09:40)
[2018-04-28] MEDS: DOCUSATE SODIUM 100 MG CAP PO SCH (09:40)
[2018-04-28] MEDS: LISINOPRIL 5 MG TAB PO SCH (09:40)
[2018-04-28] MEDS: BRIMONIDINE 0.1% OPHTH SOLN 5 ML OU SCH ×2 (09:42→21:44)
[2018-04-28] MEDS ORDERED: KEFL500C17 PO (09:48)
[2018-04-28] MEDS ORDERED: FINA5TAB2 PO (09:48)
[2018-04-28] MEDS ORDERED: TEMO1CAP8 PO (09:48)
[2018-04-28] MEDS ORDERED: DEXA2TA PO (09:50)
[2018-04-28] MEDS ORDERED: INSUDET SC (09:50)
[2018-04-28] MEDS ORDERED: DIVA500T9 PO (09:50)
[2018-04-28] MEDS: DIVALPROEX 500MG *ER* TAB PO SCH ×2 (10:36→21:45)
[2018-04-28] MEDS: SODIUM CHLORIDE 1 GM TAB PO SCH ×2 (10:37→17:34)
[2018-04-28 12:32] VITALS: BP 104/78
[2018-04-28 14:00] VITALS: BP 107/67
[2018-04-28] MEDS: TEMOZOLOMIDE PO SCH (17:33)
--- NOTE | 2018-04-28 18:41 | IPNPDOC ---
Text Note Date of Service The patient was seen on 04/28/18. NOTE The patient is seen and examined. No acute events overnight. Denies any chest pain, pressure or discomfort. Denies any fevers or chills. Denies any abdominal pain. PHYSICAL EXAMINATION GENERAL: The patient alert, comfortable and in no acute distress. HEENT: Moist mucous membranes. Neck is supple. No jugular venous distention (JVD). CARDIAC: Regular. S1, S2. PULMONARY: Bilaterally clear. ABDOMEN: Soft, nontender. Positive bowel sounds. EXTREMITIES: No clubbing, cyanosis or edema. NEUROLOGIC: Left sided tongue deviation. Other cranial nerves grossly intact. Symmetrical strength in bilateral upper and lower. Alert and oriented times three. ASSESSMENT AND PLAN: This is a 57-year-old male patient with underlying medical history of schizophrenia, schizoaffective disorder, bipolar disorder, hypertension, who lives at home, hypothyroidism, benign prostatic hypertrophy (BPH), initially presented to [facility] on 03/11/2018 with left basal ganglia hemorrhage, transferred to [facility]. The patient was diagnosed with glioblastoma multiforme. Subsequently had a debulking procedure and transferred back to [facility] for further treatment. 1. Newly diagnosed glioblastoma multiforme. Status post debulking procedure at [facility]. Dr. Pearl and Dr. Valentine have been on consult. Scheduled for chemotherapy/Temodar end date 06/04 for 42 doses and radiation therapy. Continue Depakote and Decadron. Head of the bed needs to be able to be changed to relieve pain and discomfort. Patient required frequent changes in position and help getting out of bed. 2. Diabetes mellitus. Insulin as ordered. Januvia. Consistent carbohydrate diet. 3. Benign prostatic hypertrophy (BPH) with urinary retention. Continue Flomax and Proscar. Mazariegos catheter has been discontinued to decrease the risk of infection. 4. History of schizophrenia and bipolar disorder and schizoaffective disorder. Continue current medications. 5. Hypothyroidism. Continue Synthroid. 6. History of hypertension. Continue blood pressure medications. 7. Urinary tract infection (UTI). Followup urine culture, grew Escherichia (E) coli, pansensitive. catheter associated UTI. 7-10 days of antibiotics. 8. Deep vein thrombosis (DVT) prophylaxis. Heparin subcutaneously. DISPOSITION: Physical therapy (PT), occupational therapy (OT). Oncology, radiation. Patient and family services (PFS) has been consulted. prior authorization for Temodar VS,Edi, I+O VS, Fishbone, I+O Laboratory Tests 04/28/18 06:20 Red Blood Count 3.90 L, Mean Corpuscular Volume 93.3, Mean Corpuscular Hem oglobin 31.5, Mean Corpuscular Hemoglobin Concent 33.8, Red Cell Distribution Width 12.3, Calcium Level 8.5 Vital Signs Date Time Temp Pulse Resp B/P (MAP) Pulse Ox O2 Delivery O2 Flow Rate FiO2 04/28/18 14:00 99.0 84 18 107/67 (77) 93 I&O- Last 24 Hours up to 6 AM 04/28/18 06:00 Intake Total 1920 ml Balance 1920 ml MELISA HODGSON MD Apr 28, 2018 18:41
[2018-04-28] MEDS: LATANOPROST 0.005% OPHTH SOLN 2.5 ML OU SCH (21:44)
[2018-04-28] MEDS: LITHIUM CARBONATE 150 MG CAP PO SCH (21:44)
[2018-04-28] MEDS: SENNA 8.6 MG TAB (SENOKOT) PO SCH (21:45)
[2018-04-28] MEDS: FINASTERIDE 5 MG TAB PO SCH (21:45)
[2018-04-28 22:00] VITALS: BP 119/74
[2018-04-29] MEDS: HEPARIN SOD (PORCINE) 5000 UNITS/ML VIAL SC SCH ×3 (05:22→22:11)
[2018-04-29] MEDS: LEVOTHYROXINE 25MCG TABLET (0.025MG) PO SCH (05:23)
[2018-04-29 06:00] VITALS: BP 115/74
[2018-04-29 06:55] LABS: HEMATOCRIT 37.9 % (42.0-52.0); HEMOGLOBIN 12.8 g/dl (13.5-17.5); MEAN CORPUSCULAR HEMOGLOBIN 32.2 pg (27.0-33.0); MEAN CORPUSCULAR HGB CONC 33.8 g/dl (32.0-36.5); MEAN CORPUSCULAR VOLUME 95.2 fl (80.0-96.0); PLATELET COUNT, AUTOMATED 310 10^3/uL (150-450); RED BLOOD COUNT 3.98 10^6/uL (4.30-6.10); WHITE BLOOD COUNT 5.4 10^3/uL (4.0-10.0)
[2018-04-29 07:24] LABS: BLOOD UREA NITROGEN 15 MG/DL (7-18); CALCIUM LEVEL 8.5 MG/DL (8.5-10.1); CARBON DIOXIDE LEVEL 25 MEQ/L (21-32); CHLORIDE LEVEL 106 MEQ/L (98-107); CREATININE FOR GFR 0.57 MG/DL (0.70-1.30); GLOMERULAR FILTRATION RATE > 60.0 (>56); GLUCOSE, FASTING 97 MG/DL (70-100); SODIUM LEVEL 139 MEQ/L (136-145)
[2018-04-29] MEDS: HumaLOG INSULIN (NovoLOG) PER UNIT SC SCH ×4 (07:30→21:00)
[2018-04-29] MEDS: GEMFIBROZIL 600 MG TAB PO SCH ×2 (08:44→22:13)
[2018-04-29] MEDS: DOCUSATE SODIUM 100 MG CAP PO SCH (08:44)
[2018-04-29] MEDS: SODIUM CHLORIDE 1 GM TAB PO SCH ×2 (08:45→17:03)
[2018-04-29] MEDS: VITAMIN B COMPLEX/VIT C CAP PO SCH (08:45)
[2018-04-29] MEDS: LITHIUM CARBONATE 450 MG **CR** TAB PO SCH (08:45)
[2018-04-29] MEDS: PRIMIDONE 250 MG TAB PO SCH ×2 (08:45→22:13)
[2018-04-29] MEDS: MAGNESIUM GLUCONATE 500 MG TAB PO SCH (08:45)
[2018-04-29] MEDS: PANTOPRAZOLE 40MG TAB (PROTONIX) PO SCH (08:46)
[2018-04-29] MEDS: LISINOPRIL 5 MG TAB PO SCH (08:46)
[2018-04-29] MEDS: SITagliptin 50 MG TAB (JANUVIA) PO SCH (08:46)
[2018-04-29] MEDS: CETIRIZINE (ZyrTEC) 10 MG TAB PO SCH (08:46)
[2018-04-29] MEDS: TRIHEXYPHENIDYL 2 MG TAB PO SCH ×3 (08:46→22:11)
[2018-04-29] MEDS: TAMSULOSIN 0.4 MG CAP PO SCH (08:47)
[2018-04-29] MEDS: CEPHALEXIN 500 MG CAP PO SCH ×2 (08:47→22:13)
[2018-04-29] MEDS: LEVEMIR (INSULIN DETEMIR) 1 UNITS/0.01ML SC SCH (08:47)
[2018-04-29] MEDS: MULTIVITAMINS/MINERALS THERAP 1 TAB PO SCH (08:47)
[2018-04-29] MEDS: DIVALPROEX 500MG *ER* TAB PO SCH ×2 (08:47→22:11)
[2018-04-29] MEDS: BRIMONIDINE 0.1% OPHTH SOLN 5 ML OU SCH ×2 (08:48→22:14)
[2018-04-29] MEDS ORDERED: PALIPERIDONE PALMITATE 234 MG/1.5 ML INJ (INVEGA SUSTENNA)(J2426) IM SCH (09:00)
--- NOTE | 2018-04-29 16:30 | RADONC ---
RADIATION ONCOLOGY PROGRESS NOTE DATE: 04/28/2018 CHART NUMBER: [id number] PROGRESS NOTE: Mr. Foster is presently at a dose of 720 cGy to his brain and is tolerating treatments quite well at this point with no complaints related to his radiation therapy. He is having no headaches or other problems. REVIEW OF SYSTEMS: The patient's review of systems is noncontributory. Denies nausea, vomiting, fevers, chills, night sweats, diplopia, headaches, anxiety or depression, anorexia, weight loss, visual disturbances, chest pain, urinary or bowel difficulties, bone pain, or neurological problems. PHYSICAL EXAMINATION: The patient's skin is in good condition with no evidence of moist or dry desquamation. The remainder of his physical exam remains unchanged. Mr. Foster is tolerating treatments quite well and radiation will continue as scheduled.
[2018-04-29] MEDS: TEMOZOLOMIDE PO SCH (17:02)
[2018-04-29 22:00] VITALS: BP 111/62
[2018-04-29] MEDS: LITHIUM CARBONATE 150 MG CAP PO SCH (22:11)
[2018-04-29] MEDS: FINASTERIDE 5 MG TAB PO SCH (22:12)
[2018-04-29] MEDS: SENNA 8.6 MG TAB (SENOKOT) PO SCH (22:13)
[2018-04-29] MEDS: LATANOPROST 0.005% OPHTH SOLN 2.5 ML OU SCH (22:14)
--- NOTE | 2018-04-29 22:31 | DSES ---
DATE OF ADMISSION: 04/14/2018 DATE OF DISCHARGE: 04/30/18 DC delayed for medication prior authorization PRIMARY CARE PROVIDER: Yang Mcdaniel MD ONCOLOGIST: Jenifer Valentine MD RADIATION ONCOLOGIST: Louis Pearl MD FINAL DIAGNOSES: Newly diagnosed glioblastoma. Status post debulking procedure. Basal ganglia hemorrhage secondary to glioblastoma multiforme, diabetes mellitus, benign prostatic hypertrophy (BPH), history of schizophrenia, bipolar disorder, schizoaffective disorder, hypothyroidism, hypertension, urinary tract infection (UTI). HISTORY OF PRESENT ILLNESS: This is a 57-year-old male with underlying medical history of schizoaffective disorder, schizophrenia, bipolar disorder, gastroesophageal reflux disease (GERD), diabetes, hypertension, hyperthyroidism, BPH, drug induced Parkinsonism symptoms, recently admitted at [facility] March 07, 2018 which patient had a left basal ganglia bleed, was evaluated and transferred to [facility] on March 10, 2018 for neurosurgical evaluation. It turns out patient was diagnosed with glioblastoma at [facility]. Status post biopsy and eventually debulking procedure at [facility] and was transferred back to [facility] for further evaluation and continuation of care which includes chemo and radiation and potentially physical therapy. Postoperatively at [facility] patient had urinary retention, Mazariegos catheter was placed and patient arrived with Mazariegos catheter. Furthermore, it was recommended at [facility] that patient undergo radiation therapy and have radiation oncology evaluation and start Temodar for chemotherapy. HOSPITAL COURSE: Patient arrived at the hospital. Hematology oncology, Dr. Jenifer Valentine was consulted. Radiation oncology doctor, Dr. Louis Pearl was consulted as well. Patient and Family Services (PFS) was consulted. Acute rehabilitation was consulted as well as physical therapy (PT), occupational therapy (OT) has been ordered. Patient deemed not a candidate for acute rehabilitation or short term rehabilitation. Radiation therapy has been started. Chemo drug was obtained and provided to the patient as per oncology recommendation. Patient did well with physical therapy. Arrangement was made for patient to return home with 24/7 care at home with family. Prior authorization was done for patient's chemo regimen. Patient also diagnosed with UTI. Subsequently, treated with antibiotics. Diabetic treatment regimen was provided as well. Patient's home medications were continued. BPH medication was also started. Voiding trial was done. Patient was able to void after Mazariegos catheter discontinuation. Currently patient tolerating oral, ready to be discharged for further care as outpatient. Discharge was delayed for prior authorization of chemo drug. VITAL SIGNS: Temperature 98.9, pulse 78, respirations 18, blood pressure 115/74, pulse ox 92% on room air. LABORATORY: WBC 5.4, hemoglobin and hematocrit 12.8/37.9, platelets 310. Chemistry: Sodium 139, potassium 4, chloride 106, bicarbonate 25, BUN 15, creatinine 0.57. GENERAL: The patient is alert, tremulous. In no acute distress. HEENT: Normocephalic, atraumatic. PULMONARY: Bilateral clear. CARDIAC: Regular. S1, S2. ABDOMEN: Soft, nontender. EXTREMITIES: No clubbing, cyanosis or edema. NEUROLOGICAL: Left-sided tongue deviation. Other cranial nerves grossly intact. Upper and lower extremity strength symmetrical bilaterally. DISCHARGE MEDICATIONS: - Keflex 500 mg by mouth three times a day to complete a 14 day course - finasteride 5 mg by mouth at bedtime - temozolomide 140 mg by mouth daily to complete a 42 day course, ending day June 04, 2018 - continue acetaminophen 650 mg by mouth every 6 hourly as needed - vitamin B complex by mouth daily - Alphagan 0.1% eye drop twice a day - sertraline 10 mg by mouth daily - dexamethasone 2 mg by mouth twice a day as needed - Depakote 500 mg by mouth twice a day - Colace 100 mg by mouth twice a day daily - fluticasone nasal spray daily as needed - gemfibrozil 600 mg by mouth twice a day - Levemir 10 units subcutaneous daily - Xalatan 0.005% at bedtime - Synthroid 25 mcg by mouth daily - lisinopril 5 mg by mouth daily - lithium 150 mg by mouth at bedtime and 450 mg by mouth every a.m. - magnesium oxide 500 mg by mouth daily - milk of magnesia daily as needed 30 ml - multivitamin one tablet by mouth daily - Invega 234 mg IM every monthly - Protonix 40 mg by mouth daily - Polyvinyl alcohol eye drops daily as needed - primidone 250 mg by mouth twice a day - senna 17.2 mg by mouth at bedtime - Januvia 100 mg by mouth daily - sodium chloride tablet two grams by mouth twice a day - Flomax 0.4 mg by mouth daily - Trihexyphenidyl 2 mg by mouth three times a day DISCHARGE INSTRUCTIONS: Please see primary care provider 7 days after discharge. Please followup with neurosurgery at [facility] 7 days after discharge. Please see radiation oncologist in 5 days. Continue radiation treatment as directed. Please see oncologist 5 days after discharge. Return if symptoms worsen. Home with / care. Time spent arranging and coordinating discharge: 45 minutes. EDWIN
[2018-04-30] MEDS: HEPARIN SOD (PORCINE) 5000 UNITS/ML VIAL SC SCH (05:36)
[2018-04-30] MEDS: LEVOTHYROXINE 25MCG TABLET (0.025MG) PO SCH (05:36)
[2018-04-30 06:00] VITALS: BP 109/71
[2018-04-30 06:43] LABS: HEMATOCRIT 37.1 % (42.0-52.0); HEMOGLOBIN 12.5 g/dl (13.5-17.5); MEAN CORPUSCULAR HEMOGLOBIN 32.1 pg (27.0-33.0); MEAN CORPUSCULAR HGB CONC 33.7 g/dl (32.0-36.5); MEAN CORPUSCULAR VOLUME 95.1 fl (80.0-96.0); PLATELET COUNT, AUTOMATED 335 10^3/uL (150-450); WHITE BLOOD COUNT 9.4 10^3/uL (4.0-10.0)
[2018-04-30 07:06] LABS: BLOOD UREA NITROGEN 15 MG/DL (7-18); CALCIUM LEVEL 8.7 MG/DL (8.5-10.1); CARBON DIOXIDE LEVEL 27 MEQ/L (21-32); CHLORIDE LEVEL 106 MEQ/L (98-107); CREATININE FOR GFR 0.61 MG/DL (0.70-1.30); GLOMERULAR FILTRATION RATE > 60.0 (>56); GLUCOSE, FASTING 88 MG/DL (70-100); MAGNESIUM LEVEL 2.1 MG/DL (1.8-2.4); SODIUM LEVEL 138 MEQ/L (136-145)
[2018-04-30] MEDS: HumaLOG INSULIN (NovoLOG) PER UNIT SC SCH ×2 (07:30→12:21)
[2018-04-30] MEDS: VITAMIN B COMPLEX/VIT C CAP PO SCH (08:03)
[2018-04-30] MEDS: GEMFIBROZIL 600 MG TAB PO SCH (08:03)
[2018-04-30] MEDS: MULTIVITAMINS/MINERALS THERAP 1 TAB PO SCH (08:03)
[2018-04-30] MEDS: MAGNESIUM GLUCONATE 500 MG TAB PO SCH (08:03)
[2018-04-30] MEDS: SITagliptin 50 MG TAB (JANUVIA) PO SCH (08:03)
[2018-04-30] MEDS: TRIHEXYPHENIDYL 2 MG TAB PO SCH (08:03)
[2018-04-30] MEDS: CETIRIZINE (ZyrTEC) 10 MG TAB PO SCH (08:04)
[2018-04-30] MEDS: PANTOPRAZOLE 40MG TAB (PROTONIX) PO SCH (08:04)
[2018-04-30] MEDS: PRIMIDONE 250 MG TAB PO SCH (08:04)
[2018-04-30] MEDS: CEPHALEXIN 500 MG CAP PO SCH (08:04)
[2018-04-30] MEDS: TAMSULOSIN 0.4 MG CAP PO SCH (08:04)
[2018-04-30] MEDS: DOCUSATE SODIUM 100 MG CAP PO SCH (08:04)
[2018-04-30] MEDS: SODIUM CHLORIDE 1 GM TAB PO SCH (08:04)
[2018-04-30] MEDS: LITHIUM CARBONATE 450 MG **CR** TAB PO SCH (08:04)
[2018-04-30] MEDS: LEVEMIR (INSULIN DETEMIR) 1 UNITS/0.01ML SC SCH (08:05)
[2018-04-30] MEDS: BRIMONIDINE 0.1% OPHTH SOLN 5 ML OU SCH (08:06)
[2018-04-30 09:00] VITALS: BP 109/71
[2018-04-30] MEDS: LISINOPRIL 5 MG TAB PO SCH (09:00)
[2018-04-30] MEDS ORDERED: KEFL500C17 PO (10:44)
[2018-04-30] MEDS: DIVALPROEX 500MG *ER* TAB PO SCH (10:46)
[2018-04-30] MEDS ORDERED: TEMO1CAP8 PO (11:58)
--- NOTE | 2018-04-30 19:57 | IPN ---
ADDENDUM TO DISCHARGE SUMMARY: Please refer to discharge summary dictated on April 29, 2018 for further information. DATE OF ADMISSION: April 14, 2018 DATE OF DISCHARGE: April 30, 2018 Discharge was delayed secondary to chemo medication Temodar prior authorization. Patient is currently comfortable. Denies any chest pain, pressure or discomfort. Denies any shortness of breath. Ready to be discharged for further care as outpatient. GENERAL: Patient alert, comfortable. In no acute distress. HEENT: Normocephalic, atraumatic. Surgical scar well healed. PULMONARY: Bilateral clear. CARDIAC: Regular, S1, S2. ABDOMEN: Soft. EXTREMITIES: No clubbing, cyanosis or edema. NEUROLOGICAL: Slight left-sided tongue deviation. Other cranial nerves intact. Able to move all four extremities. LABORATORY: WBC 9.4, hemoglobin and hematocrit 12.5/37.1. Platelets 335. Chemistry: Sodium 138, potassium 4, chloride 106. Bicarbonate 27, BUN 15, creatinine 0.6. DISCHARGE INSTRUCTIONS: Please refer to previous discharge summary of April 29, 2018 for further information.
[2018-05-19] MEDS ORDERED: LACT10SO3 PO (15:17)
== END 2018-04-30 13:10 | disposition home health service (06) | DRG 55 ==
LOC: M MS5PR 18:59
PROVIDERS: ADMIT Hospitalist; ATTEND Hospitalist
DX: C71.9 Malignant neoplasm of brain, unspecified (principal); G21.19 Other drug induced secondary parkinsonism; T83.511A Infection and inflammatory reaction due to indwelling urethral catheter, initial encounter; K21.9 Gastro-esophageal reflux disease without esophagitis; E11.9 Type 2 diabetes mellitus without complications; I10 Essential (primary) hypertension; B96.20 Unspecified Escherichia coli [E. coli] as the cause of diseases classified elsewhere; R33.9 Retention of urine, unspecified; R26.81 Unsteadiness on feet; F20.9 Schizophrenia, unspecified; E03.9 Hypothyroidism, unspecified; N40.1 Benign prostatic hyperplasia with lower urinary tract symptoms; I69.220 Aphasia following other nontraumatic intracranial hemorrhage; I69.222 Dysarthria following other nontraumatic intracranial hemorrhage; Z79.899 Other long term (current) drug therapy

== ENCOUNTER 2018-06-05 12:29 | Outpatient (RCR) | payer MEDICARE, MEDICAID ==
--- NOTE | 2018-05-26 14:31 | RADONC ---
RADIATION ONCOLOGY PROGRESS NOTE DATE OF SERVICE: 05/26/2018 CHART #: [id number] Mr. Foster is presently at a dose of 3960 cGy to his brain tumor and is tolerating treatments quite well at this point with no complaints related to his radiation therapy. He is having no headaches or other problems. I did ask him about his falling and he claims he has not fallen recently. REVIEW OF SYSTEMS: Positive for his general physical limitations since his surgery which are unchanged. It is otherwise noncontributory. Denies nausea, vomiting, fevers, chills, night sweats, diplopia, headaches, anxiety or depression, anorexia, weight loss, visual disturbances, chest pain, urinary or bowel difficulties, bone pain, or neurological problems. PHYSICAL EXAMINATION: The patient's skin is in good condition with no evidence of moist or dry desquamation. The remainder of his physical exam remains unchanged. Mr. Foster is tolerating treatments quite well and radiation will continue as scheduled.
--- NOTE | 2018-06-02 14:34 | RADONC ---
RADIATION ONCOLOGY PROGRESS NOTE DATE: 06/02/2018 CHART NUMBER: [id number] Mr. Foster, with a diagnosis of glial blastoma multiforme, is presently receiving local regional radiotherapy and he has achieved a dose to date of 4860 cGy of an anticipated 5940 cGy. Treatments appear to be going relatively well as he denies any significant major issues attributable to the radiotherapy. REVIEW OF SYSTEMS He specifically denies any nausea, vomiting, headache or skin irritation. His energy level is diminished. He denies diplopia, anxiety, depression. EXAMINATION FINDINGS: The patient is somewhat slow to respond but appears to have no evidence of moist or dry desquamation. The remainder of the physical examination is basically unchanged. IMPRESSION: Tolerating therapy well. PLAN: Treatments to continue MTDD
[~2018-06-05 12:29] MED LIST changes: -/DIVA50TA PO; +APAP325T4 PO; +BRIM1OPD OU; +DEPA1TAB3 PO; +DEXA2TA PO; +FINA5TAB2 PO; +HEPA500011 INJ; +LACT10SO3 PO; +LATA0.0013 OD; -LATA5OPD OD; +MILK120011 PO; -NAPR-50 PO; +NAPR-837 PO; +PANT40TA3 PO; +POLY1.4S OU; -SENN1TAB2 PO; +SENN1TAB40 PO; +SENN8.6T17 PO; +SODI1TAB12 PO; +SYNT25TA PO; +TEMO1CAP8 PO
[2018-06-05] MEDS ORDERED: DIVA500T9 PO (16:33)
[2018-06-05] MEDS ORDERED: DEXA2TA PO (16:33)
[2018-06-05] MEDS ORDERED: TEMO1CAP8 PO (16:33)
[2018-06-05] MEDS ORDERED: [UNRECOGNIZED DRUG - OTHER] PO (16:55)
[2018-06-05] MEDS ORDERED: VITA500C24 PO (16:55)
[2018-06-05] MEDS ORDERED: NEXI40CA PO (16:55)
[2018-06-05] MEDS ORDERED: EQL50TAB2 PO (16:55)
[2018-06-05] MEDS ORDERED: MAGN400C PO (16:55)
[2018-06-05] MEDS ORDERED: INSUDET SC (16:55)
[2018-06-05] MEDS ORDERED: FINA5TAB2 PO (16:55)
--- NOTE | 2018-06-09 16:07 | RADONC ---
RADIATION ONCOLOGY TREATMENT SUMMARY DATE: 06/09/2018 CHART NUMBER: [id number] DIAGNOSIS: Glioblastoma multiforme. GRADE: 4 ECOG PERFORMANCE STATUS: 3 TREATMENT SUMMARY: Mr. Foster is a 57-year-old white male with the diagnosis of glioblastoma multiforme who presented to us for consideration of definitive external beam radiation therapy with IMRT/IGRT. We treated the patient to his brain for a total dose of 5220 cGy delivered in 29 fractions of 180 cGy each over 42 elapsed days from 04/23/2018 through 06/04/2018. The patient's brain was treated on a linear accelerator utilizing a 6 MV photon beam via IMRT/IGRT. We had initially planned on treating this patient for a total dose of 5940 cGy in 33 fractions of 180 cGy each. Unfortunately, the patient's condition continued to deteriorate and he was admitted and placed on comfort measures only. Since the patient has now discontinued treatment, I have discharged him from our treatment schedule as well as followup list. If the situation changes and he improves wishing to continue treatment, I would be more than glad to reconsider completing the remainder of his fractions. cc: MD Jenifer Delgado MD Aruna Ray, MD Fredrick Tontarski, PA
[2018-06-11] MEDS ORDERED: MORP20SO3 PO (07:29)
[2018-06-11] MEDS ORDERED: HYOS125TA PO (07:29)
[2018-06-11] MEDS ORDERED: LORA0.5T11 PO (07:29)
== END 2018-06-17 ==
LOC: M ONCR 12:29
PROVIDERS: ATTEND Radiology Radiation Oncology
DX: C71.0 Malignant neoplasm of cerebrum, except lobes and ventricles (principal)

== ENCOUNTER 2018-06-05 13:27 | Inpatient (IN) | payer MEDICARE, MEDICAID ==
[~2018-06-05] VITALS: Ht 175.3 cm; Wt 56.8 kg
--- NOTE | 2018-06-05 14:44 | REP ---
CT Head without contrast HISTORY: Weakness COMPARISON: CT 03/10/2018, MR 03/12/2018 and MR 03/30/2018 The patient is status post left frontal craniotomy. An ill-defined mass is present in the posterior left frontal and anterior left parietal lobes. Surrounding edema is present. There is mass effect with partial effacement of the overlying cortical sulci and partial effacement of the anterior horn of the left lateral ventricle with minimal midline shift to the the right. The mass effect and midline shift to the right are slightly increased compared to the most recent previous study. The ventricular system and cortical sulci are dilated consistent with mild volume loss. There is no extra cerebral collection. There is no fracture. The visualized sinuses are clear. IMPRESSION: There is an ill-defined mass in the posterior left frontal and anterior left parietal lobes with surrounding edema and mass effect with minimal midline shift to the right. The mass effect and midline shift are increased compared to the previous study. Electronically Signed by Darius Davidson MD 06/05/2018 02:36 P
[2018-06-05 15:01] LABS: BASO # 0.1 10^3/uL (0.0-0.2); BASO % 0.9 % (0.0-1.0); EOS # 0.1 10^3/uL (0.0-0.50); EOS % 2.1 % (0.0-3.0); HEMOGLOBIN 13.1 g/dl (13.5-17.5); LYMPH # 0.9 10^3/uL (1.5-4.5); LYMPH % 13.7 % (24.0-44.0); MEAN CORPUSCULAR HEMOGLOBIN 32.5 pg (27.0-33.0); MEAN CORPUSCULAR HGB CONC 33.6 g/dl (32.0-36.5); MEAN CORPUSCULAR VOLUME 96.8 fl (80.0-96.0); MONO # 0.4 10^3/uL (0.0-0.8); MONO % 6.7 % (0.0-5.0); NEUTROPHILS % 76.3 % (36.0-66.0); PLATELET COUNT, AUTOMATED 242 10^3/uL (150-450); RED BLOOD COUNT 4.03 10^6/uL (4.30-6.10); WHITE BLOOD COUNT 6.6 10^3/uL (4.0-10.0)
--- NOTE | 2018-06-05 15:02 | REP ---
PA and lateral chest: Comparison is 03/07/2018. The lung gaines are clear. The cardiac size is normal. The savanah, mediastinum, and skeletal structures are unremarkable. Impression: Negative PA and lateral chest. There is no interval change. Electronically Signed by Louis Frias MD 06/05/2018 02:53 P
--- NOTE | 2018-06-05 15:04 | REP ---
Supine abdomen, single AP view: Comparison is 07/16/2006. There are multiple mildly distended small bowel loops in the abdomen on the right, nonspecific, possibly focal ileus. There is no colonic distension. There is a surgical clip in the right upper quadrant. There is a large fecal bolus in the rectal ampulla, possibly an impaction. Impression: Mildly distended small bowel loops on the right, nonspecific, possibly focal ileus. Questionable fecal impaction in the rectal ampulla. Electronically Signed by Louis Frias MD 06/05/2018 02:56 P
[2018-06-05 15:12] LABS: INR 1.11; PROTHROMBIN TIME 14.4 SECONDS (12.1-14.4)
[2018-06-05 15:13] LABS: PARTIAL THROMBOPLASTIN TIME 27.5 SECONDS (25.4-37.6)
[2018-06-05 15:34] LABS: ALBUMIN 3.8 GM/DL (3.2-5.2); ALT/SGPT 19 U/L (12-78); BILIRUBIN,DIRECT 0.1 MG/DL (0.0-0.2); BILIRUBIN,TOTAL 0.4 MG/DL (0.2-1.0); BLOOD UREA NITROGEN 22 MG/DL (7-18); CALCIUM LEVEL 8.9 MG/DL (8.5-10.1); CARBON DIOXIDE LEVEL 26 MEQ/L (21-32); CHLORIDE LEVEL 107 MEQ/L (98-107); CK-MB VALUE MASS < 1.0 NG/ML (<3.6); CPK CREATINE PHOSPHOKINASE 33 U/L (39-308); CREATININE FOR GFR 0.63 MG/DL (0.70-1.30); FREE T4 1.17 NG/DL (0.76-1.46); GLOMERULAR FILTRATION RATE > 60.0 (>56); GLUCOSE, FASTING 68 MG/DL (70-100); LITHIUM LEVEL 0.97 MEQ/L (0.60-1.20); MB/CK RELATIVE INDEX 3.03 (< OR =4); POTASSIUM SERUM 4.1 MEQ/L (3.5-5.1); SODIUM LEVEL 140 MEQ/L (136-145); THYROID STIMULATING HORMONE 0.922 uIU/ML (0.358-3.740); TOTAL PROTEIN 6.5 GM/DL (6.4-8.2); TROPONIN I < 0.02 NG/ML (< 0.10)
[2018-06-05] MEDS ORDERED: DIVA500T9 PO (16:33)
[2018-06-05] MEDS ORDERED: DEXA2TA PO (16:33)
[2018-06-05] MEDS ORDERED: TEMO1CAP8 PO (16:33)
[2018-06-05] MEDS ORDERED: EQL50TAB2 PO (16:55)
[2018-06-05] MEDS ORDERED: NEXI40CA PO (16:55)
[2018-06-05] MEDS ORDERED: FINA5TAB2 PO (16:55)
[2018-06-05] MEDS ORDERED: INSUDET SC (16:55)
[2018-06-05] MEDS ORDERED: [UNRECOGNIZED DRUG - OTHER] PO (16:55)
[2018-06-05] MEDS ORDERED: MAGN400C PO (16:55)
[2018-06-05] MEDS ORDERED: VITA500C24 PO (16:55)
[2018-06-05] MEDS ORDERED: ACETAMINOPHEN TAB 650MG DOSE (2X325MG) PO PRN (17:00)
[2018-06-05] MEDS ORDERED: FLEET OIL RETENTION ENEMA PR PRN (17:00)
[2018-06-05] MEDS ORDERED: POLYVINYL ALCOHOL OPHTH SOLN 15 ML(LIQUITEARS) OU PRN (17:15)
[2018-06-05] MEDS ORDERED: FLUTICASONE PROP 0.05% NASAL SPRAY 16 GM (FLONASE) NARES PRN (17:15)
[2018-06-05] MEDS: levETIRAcetam INJection 500 MG in D5W MINI-BAG PLUS 100 ML IV SCH ×2 (18:08→18:19)
[2018-06-05] MEDS: dexameTHASONE 20 MG/5 ML VIAL (J1100) IV SCH (18:10)
--- NOTE | 2018-06-05 21:08 | HPE ---
DATE OF ADMISSION: 06/05/2018 ONCOLOGIST: Dr. Valentine. RADIATION ONCOLOGIST: Dr. Pearl. CHIEF COMPLAINT: Unsteadiness on his feet. HISTORY OF PRESENT ILLNESS: The patient is a 57-year-old man with known glioblastoma multiforme (GBE), who is presenting for his regularly scheduled outpatient radiation oncology, where nursing staff was informed that he was more unsteady on his feet and tremulous than usual. Radiation oncologist did have concern for worsening cerebral edema in the face of chemotherapy and radiation and referred him to the emergency room. Upon his presentation to the emergency room, he did have a CAT scan with worsening symptoms. He previously has undergone debulking surgery and follows with Dr. Valentine regarding continued chemotherapy. Emergency room (ER) providers did recommend transfer to [facility], where Dr. Goodson is neurosurgeon, who had done his previous debulking surgery, and could evaluate for his worsening brain lesion, cerebral edema and midline shift. There was concern for possible catastrophic cerebral herniation. The patient declined offers for transfer. At the present time, the patient tells me that he feels constipated. There are no other complaints. PAST MEDICAL HISTORY: 1. Schizoaffective disorder. 2. Bipolar disorder. 3. Gastroesophageal reflux disease. 4. Diabetes. 5. Hypertension. 6. Hyperthyroidism. 7. Benign prostatic hypertrophy (BPH). 8. Drug-induced Parkinson symptoms. 9. Grade IV glioblastoma multiforme with debulking surgeries at [facility]. PAST SURGICAL HISTORY: Brain biopsy 03/18/2018, as well as debulking surgery 03/29/2018 related to GBM. Denies any prior surgeries other than that. HOME MEDICATIONS: - amlodipine - aspirin - Florajen - hydroxyzine - hydrochlorothiazide - melatonin - tamsulosin - Temodar 140 mg daily with radiation therapy SOCIAL HISTORY: The patient previously lived alone. He tells me that he lives with his mom. Had a 20 pack year tobacco history. No alcohol or illicit drug use. He is single. His sister, Joan, is his healthcare proxy and was called and notified about his ER visit. FAMILY HISTORY: Noncontributory. REVIEW OF SYSTEMS: Negative other than the history of present illness (HPI). OBJECTIVE: VITAL SIGNS: Temperature 99.7, heart rate 77, respiratory rate 19, blood pressure 110/68, oxygen saturation 95% on room air. GENERAL: He is a frail man, appears older than stated age, lying on a stretcher. He has Parkinsonian-like movements, tremulous, with tongue movements. Does not appear to be in any acute distress. He is awake, alert, and conversant, intermittently answering questions appropriately. CARDIOVASCULAR: Regular. RESPIRATORY EXAMINATION: Clear. ABDOMINAL EXAMINATION: Benign. EXTREMITIES: No clubbing, cyanosis or edema. LABORATORY STUDIES: WBC 6.6, hemoglobin 50.1, platelet count 242. Chemistry panel: Sodium 140, potassium 4.1, chloride 107, bicarbonate 26, BUN 22, creatinine 0.6. The patient did have a CT scan of his head, which revealed ill-defined mass in the posterior left frontal and anterior left parietal lobes with surrounding edema and mass effect with minimal midline shift to the right. The mass effect and midline shift are increased compared to the previous studies. He also had an abdominal x-ray that revealed a questionable fecal impaction in the rectal ampulla. He had a negative chest x-ray. ASSESSMENT AND PLAN: This is a 57-year-old man with a grade IV glioblastoma multiforme, worsened in the face of ongoing chemotherapy and radiation. PROBLEMS: Worsening glioblastoma multiforme in the face of chemotherapy and radiation. I did speak with Dr. Rangel, who informed me that the patient's prognosis, with this new worsening of his mass is quite poor, and did suggest that the patient was most definitely hospice appropriate. I did, once again, revisit the topic with the patient, discussing the potential options, including transfer to [place] for neurosurgical evaluation, continue chemotherapy, radiation therapy, resuscitative efforts, as well as ventilatory procedures, if needed. He did not wish to pursue these, but given that his speech is quite difficult, I did call his sister and healthcare proxy, Joan and place her on speakerphone, as we discussed different options in the presence of the patient. The patient and his sister both agreed. At this time, they are leaning more toward hospice at home. The sister wishes to speak with hospice tomorrow in hopes or arranging this. They were not prepared to fill out a Medical Orders for Life-Sustaining Treatment (MOLST) form at this time. I did suggest that we could provide her with an enema to treat him for his fecal impaction, provide him with intravenous (IV) Decadron to reduce his cerebral edema as well as Keppra for seizure prophylaxis. After they have had a change to discuss further with hospice tomorrow and myself, and had a chance to discuss with themselves, we could consider disposition plan at that time as to be home with hospice. Both were open to this and seemed to be leaning in that direction and, for the time being, they requested that no further escalations in care be taken, and as such, for the time being, we will not escalate any care until notifying his healthcare proxy for her strict approval. She is aware that any further escalations of care are likely going to be futile and will not change his outcome. He will be admitted on observation status.
[2018-06-05] MEDS: LATANOPROST 0.005% OPHTH SOLN 2.5 ML OU SCH (21:36)
[2018-06-05] MEDS: LITHIUM CARBONATE 150 MG CAP PO SCH (21:36)
[2018-06-05] MEDS: FINASTERIDE 5 MG TAB PO SCH (21:36)
[2018-06-05] MEDS: PRIMIDONE 250 MG TAB PO SCH (21:36)
[2018-06-05] MEDS: TAMSULOSIN 0.4 MG CAP PO SCH (21:36)
--- NOTE | 2018-06-05 21:48 | ECGEPIP ---
Stationary ECG Study 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
[2018-06-05 22:00] VITALS: BP 106/61
[2018-06-06] MEDS: dexameTHASONE 20 MG/5 ML VIAL (J1100) IV SCH ×2 (01:31→09:18)
[2018-06-06] MEDS ORDERED: GLUCAGON FOR INJ 1 MG VIAL (J1610) SC PRN (04:15)
[2018-06-06] MEDS ORDERED: DEXTROSE 50% 50 ML SYRINGE IV PRN (04:15)
[2018-06-06] MEDS ORDERED: GLUCOSE 4 GM CHEW TABLET PO PRN (04:15)
[2018-06-06 06:00] VITALS: BP 113/74
[2018-06-06] MEDS ORDERED: levETIRAcetam INJection 1,000 MG in D5W 100 ML IV SCH (06:00)
[2018-06-06] MEDS ORDERED: LEVOTHYROXINE 25MCG TABLET (0.025MG) PO SCH (06:00)
[2018-06-06] MEDS: HumaLOG INSULIN (NovoLOG) PER UNIT SC SCH ×2 (07:30→11:38)
[2018-06-06] MEDS ORDERED: DOCUSATE SODIUM 100 MG CAP PO SCH (09:00)
[2018-06-06] MEDS ORDERED: PANTOPRAZOLE 40MG TAB (PROTONIX) PO SCH (09:00)
[2018-06-06] MEDS ORDERED: BRIMONIDINE 0.1% OPHTH SOLN 5 ML OU SCH (09:00)
[2018-06-06] MEDS: PRIMIDONE 250 MG TAB PO SCH (09:16)
[2018-06-06] MEDS: NYSTATIN 100,000 UNITS/GM TOPICAL PWD 15 GM TOP SCH ×2 (09:17→22:06)
[2018-06-06] MEDS: LITHIUM CARBONATE 450 MG **CR** TAB PO SCH (09:17)
[2018-06-06 14:00] VITALS: BP 119/66
[2018-06-06] MEDS ORDERED: DOCUSATE SODIUM 100 MG CAP PO PRN (16:30)
[2018-06-06] MEDS ORDERED: LORazepam 2 MG/ML VIAL (J2060) IV PRN (16:30)
[2018-06-06] MEDS ORDERED: SCOPOLAMINE 1MG TRANSDERMAL PATCH TOP PRN (16:30)
[2018-06-06] MEDS ORDERED: MORPHINE 4 MG/ML 1ML VIAL/SYRINGE (J2270) IV PRN (16:30)
[2018-06-06] MEDS ORDERED: ONDANSETRON 4MG/2ML VIAL (J2405) IV PRN (16:30)
[2018-06-06] MEDS ORDERED: HumaLOG INSULIN (NovoLOG) PER UNIT SC SCH (21:00)
[2018-06-06] MEDS: FINASTERIDE 5 MG TAB PO SCH (22:06)
[2018-06-06] MEDS: TAMSULOSIN 0.4 MG CAP PO SCH (22:06)
[2018-06-06] MEDS: LITHIUM CARBONATE 150 MG CAP PO SCH (22:06)
[2018-06-06] MEDS: LATANOPROST 0.005% OPHTH SOLN 2.5 ML OU SCH (22:06)
[2018-06-07] MEDS: LITHIUM CARBONATE 450 MG **CR** TAB PO SCH (08:25)
[2018-06-07] MEDS: NYSTATIN 100,000 UNITS/GM TOPICAL PWD 15 GM TOP SCH ×2 (08:25→20:49)
--- NOTE | 2018-06-07 12:44 | IPNPDOC ---
Date Seen The patient was seen on 06/06/18. Progress Note SUBJECTIVE: : The patient is a 57-year-old man with known glioblastoma multiforme (GBE), who is presenting for his regularly scheduled outpatient radiation oncology, where nursing staff was informed that he was more unsteady on his feet and tremulous than usual. He was seen this morning laying in bed. Unable to answer questions appropriately. OBJECTIVE PHYSICAL EXAMINATION: VITAL SIGNS: Please see below. GENERAL: Elderly man laying in bed. No acute respiratory distress. Poor mentation, unable to communicate appropriately. Resting tremor present. CARDIOVASCULAR: Regular rate and rhythm. RESPIRATORY: Diminished breath sounds due to decreased respiratory efforts. ABDOMINAL: Soft, decreased bowel sounds throughout. Pulsatile mass present. EXTREMITIES: resting tremor present. NEUROLOGICAL: Resting and intention tremor present in bilateral UE, dysmetria evident on finger to nose test. Tongue deviation to the L. Diminished physical therapy director strength on the right. RLE muscle strength 1/5 and LLE 3/5. Answers some questions inappropriately. Slurred and gargled speech LABORATORY DATA, IMAGING STUDIES, MICROBIOLOGY: Please see below. ASSESSMENT AND PLAN: Mr. Foster is a 57 yo M with glioblastoma mutiforme. Following problems will be managed during hospitalization PROBLEMS: Glioblastoma multiforme, receiving chemo and radiation -Presented with worsened unsteadiness and increased tremulous -Head CT: ill-defined mass in the posterior left frontal and anterior left parietal lobes with surrounding edema and mass effect with minimal midline shift to the right. The mass effect and midline shift are increased compared to the previous study -Risk of herniation from increased cerebral edema. 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 Diabetes BPH -Will continue with finasteride and tamsulosin Hx of schizophrenia, bipolar disorder, schizoaffective disorder Hypothyroidism -Discontinued Synthroid Hx of hypertension DISPOSITION: hospice. VS, I&O, 24H, Fishbone Vital Signs/I&O Vital Signs Date Time Temp Pulse Resp B/P (MAP) Pulse Ox O2 Delivery O2 Flow Rate FiO2 06/06/18 06:00 98.2 86 18 113/74 (87) 99 06/05/18 14:30 Room Air I&O- Last 24 Hours up to 6 AM 06/06/18 07:00 Intake Total 1300 ml Output Total 500 ml Balance 800 ml Laboratory Data 24H LABS Laboratory Tests 2 06/05/18 14:50: Immature Granulocyte % (Auto) 0.3, White Blood Count 6.6, Red Blood Count 4.03L, Hemoglobin 13.1L, Hematocrit 39.0L, Mean Corpuscular Volume 96.8H, Mean Corpuscular Hemoglobin 32.5, Mean Corpuscular Hemoglobin Concent 33.6, Red Cell Distribution Width 12.6, Platelet Count 242, Neutrophils (%) (Auto) 76.3H, Lymphocytes (%) (Auto) 13.7L, Monocytes (%) (Auto) 6.7H, Eosinophils (%) (Auto) 2.1, Basophils (%) (Auto) 0.9, Neutrophils # (Auto) 5.0, Lymphocytes # (Auto) 0.9L, Monocytes # (Auto) 0.4, Eosinophils # (Auto) 0.1, Basophils # (Auto) 0.1, Nucleated Red Blood Cells % (auto) 0.0, Anion Gap 7L, Glomerular Filtration Rate > 60.0, Calcium Level 8.9, Aspartate Amino Transf (AST/SGOT) 7, Alanine Aminotransferase (ALT/SGPT) 19, Alkaline Phosphatase 48, Total Bilirubin 0.4, Direct Bilirubin 0.1, Total Creatine Kinase 33L, Creatine Kinase MB < 1.0, Creatine Kinase MB Relative Index 3.03, Troponin I < 0.02, Total Protein 6.5, A lbumin 3.8, Albumin/Globulin Ratio 1.41, Thyroid Stimulating Hormone (TSH) 0.922, Free Thyroxine 1.17, Valproic Acid (Depakene) Level 33.0L, [place] Level 0.97 06/05/18 14:51: Prothrombin Time 14.4, Prothromb Time International Ratio 1.11, Activated Partial Thromboplast Time 27.5 06/05/18 20:41: Bedside Glucose (Misc Panel) 73 06/06/18 06:39: Bedside Glucose (Misc Panel) 79 CBC/BMP Laboratory Tests 06/05/18 14:50 Red Blood Count 4.03 L, Mean Corpuscular Volume 96.8 H, Mean Corpuscular Hemoglobin 32.5, Mean Corpuscular Hemoglobin Concent 33.6, Red Cell Distribution Width 12.6, Neutrophils (%) (Auto) 76.3 H, Lymphocytes (%) (Auto) 13.7 L, Monocytes (%) (Auto) 6.7 H, Eosinophils (%) (Auto) 2.1, Basophils (%) (Auto) 0.9, Neutrophils # (Auto) 5.0, Lymphocytes # (Auto) 0.9 L, Monocytes # (Auto) 0.4, Eosinophils # (Auto) 0.1, Basophils # (Auto) 0.1 GME ATTESTATION GME ATTESTATION My faculty preceptor for this patient encounter was physically present during the encounter and was fully available. All aspects of the patient interview, examination, medical decision making process, and medical care plan development were reviewed and approved by the faculty preceptor. The faculty preceptor is aware and concurs with the plan as stated in the body of this note and will attest to such by his/her cosignature. KATHLEEN SAMUEL OMS-III Jun 06, 2018 11:57 DANNY ISBELL DO Jun 07, 2018 12:44
[2018-06-07] MEDS: FINASTERIDE 5 MG TAB PO SCH (20:47)
[2018-06-07] MEDS: LITHIUM CARBONATE 150 MG CAP PO SCH (20:48)
[2018-06-07] MEDS: LATANOPROST 0.005% OPHTH SOLN 2.5 ML OU SCH (20:49)
[2018-06-07] MEDS: TAMSULOSIN 0.4 MG CAP PO SCH (20:49)
[2018-06-07 22:00] VITALS: BP 108/62
[2018-06-08 06:00] VITALS: BP 98/59
[2018-06-08] MEDS: LITHIUM CARBONATE 150 MG CAP PO SCH ×2 (09:07→20:19)
[2018-06-08] MEDS: NYSTATIN 100,000 UNITS/GM TOPICAL PWD 15 GM TOP SCH ×2 (09:08→20:20)
[2018-06-08] MEDS: LITHIUM CARBONATE 450 MG **CR** TAB PO SCH (09:12)
[2018-06-08] MEDS: MORPHINE 10MG/0.5ML ORAL CONCENTRATE SOLUTION U/D SL PRN (17:13)
[2018-06-08] MEDS: TAMSULOSIN 0.4 MG CAP PO SCH (20:19)
[2018-06-08] MEDS: FINASTERIDE 5 MG TAB PO SCH (20:19)
[2018-06-08] MEDS: LATANOPROST 0.005% OPHTH SOLN 2.5 ML OU SCH (20:19)
[2018-06-08 22:00] VITALS: BP 109/72
[2018-06-09 06:00] VITALS: BP 123/59
[2018-06-09] MEDS: NYSTATIN 100,000 UNITS/GM TOPICAL PWD 15 GM TOP SCH ×2 (09:20→20:18)
[2018-06-09] MEDS: LITHIUM CARBONATE 450 MG **CR** TAB PO SCH (09:21)
[2018-06-09 14:00] VITALS: BP 108/71
[2018-06-09] MEDS: FINASTERIDE 5 MG TAB PO SCH (20:17)
[2018-06-09] MEDS: LATANOPROST 0.005% OPHTH SOLN 2.5 ML OU SCH (20:18)
[2018-06-09] MEDS: LITHIUM CARBONATE 150 MG CAP PO SCH (20:18)
[2018-06-09] MEDS: TAMSULOSIN 0.4 MG CAP PO SCH (20:18)
[2018-06-09 22:00] VITALS: BP 116/70
[2018-06-09] MEDS: MORPHINE 10MG/0.5ML ORAL CONCENTRATE SOLUTION U/D SL PRN (22:47)
[2018-06-10 06:00] VITALS: BP 91/56
[2018-06-10] MEDS: NYSTATIN 100,000 UNITS/GM TOPICAL PWD 15 GM TOP SCH ×2 (09:23→20:15)
[2018-06-10] MEDS: LITHIUM CARBONATE 450 MG **CR** TAB PO SCH (09:23)
--- NOTE | 2018-06-10 12:42 | IPNPDOC ---
Text Note Date of Service The patient was seen on 06/10/18. NOTE SUBJECTIVE: Patient comfortable, sleeping this am. As per staff he was restless overnight then went to sleep around 5 am. He appered comfortable in no acute distress. 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 OBJECTIVE PHYSICAL EXAMINATION: VITAL SIGNS: Please see below. GENERAL: Elderly man laying in bed. No acute respiratory distress. Poor mentation, unable to communicate appropriately. CARDIOVASCULAR: Regular rate and rhythm. RESPIRATORY: Diminished breath sounds due to decreased respiratory efforts. ABDOMINAL: Soft, decreased bowel sounds throughout. Pulsatile mass present. EXTREMITIES: resting tremor present. NEUROLOGICAL: Resting and intention tremor present in bilateral UE, dysmetria evident on finger to nose test. Tongue deviation to the L. Diminished change booth attendant strength on the right. RLE muscle strength 1/5 and LLE 3/5. Answers some questions inappropriately. Slurred and gargled speech LABORATORY DATA, IMAGING STUDIES, MICROBIOLOGY: Please see below. ASSESSMENT AND PLAN: Mr. Foster is a 57 yo M with glioblastoma mutiforme in NOISE TESTER status awaiting to go to home hospice. Glioblastoma multiforme with Brain compression was receiving chemo and radiation Presented with worsened unsteadiness and increased tremulous Head CT: ill-defined mass in the posterior left frontal and anterior left parietal lobes with surrounding edema and mass effect with minimal midline shift to the right. The mass effect and midline shift are increased compared to the previous study Risk of herniation from increased cerebral edema. Opted for NOISE TESTER measures. 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 Continue, roxanol, ativan, scopolamine as per hospice protocol. history of Diabetes poor oral intake . not needing any meds. BPH Will continue with finasteride and tamsulosin Hx of schizophrenia, bipolar disorder, schizoaffective disorder continue home meds. [place] Hypothyroidism Discontinued Synthroid Hx of hypertension Now low normal Bp. not on any meds. DISPOSITION: Home hospice. VS,Fishbone, I+O VS, Fishbone, I+O Vital Signs Date Time Temp Pulse Resp B/P (MAP) Pulse Ox O2 Delivery O2 Flow Rate FiO2 06/10/18 06:00 97.8 72 19 91/56 (68) 93 06/05/18 14:30 Room Air I&O- Last 24 Hours up to 6 AM 06/10/18 06:00 Intake Total 1040 ml Output Total 400 ml Balance 640 ml SEAN GRAVES MD Jun 10, 2018 12:42
[2018-06-10] MEDS: LITHIUM CARBONATE 150 MG CAP PO SCH (20:15)
[2018-06-10] MEDS: TAMSULOSIN 0.4 MG CAP PO SCH (20:15)
[2018-06-10] MEDS: LATANOPROST 0.005% OPHTH SOLN 2.5 ML OU SCH (20:15)
[2018-06-10] MEDS: FINASTERIDE 5 MG TAB PO SCH (20:15)
[2018-06-10 22:00] VITALS: BP 109/63
[2018-06-11 06:00] VITALS: BP 119/69
[2018-06-11] MEDS ORDERED: LORA0.5T11 PO (07:29)
[2018-06-11] MEDS ORDERED: HYOS125TA PO (07:29)
[2018-06-11] MEDS ORDERED: MORP20SO3 PO (07:29)
[2018-06-11] MEDS: LITHIUM CARBONATE 450 MG **CR** TAB PO SCH (09:10)
[2018-06-11] MEDS: NYSTATIN 100,000 UNITS/GM TOPICAL PWD 15 GM TOP SCH (09:11)
--- NOTE | 2018-06-11 10:44 | DS.PDOC ---
Discharge Summary General Date of Admission Jun 09, 2018 at 13:15 Date of Discharge 06/11/2018 Primary Care Physician: Yang Mcdaniel Discharge Summary PROCEDURES PERFORMED DURING STAY: None ADMITTING/DISCHARGE DIAGNOSES: 1. Glioblastoma multiforme, receiving chemo and radiation 2. Diabetes 3. BPH 4. Hx of schizophrenia, bipolar disorder, schizoaffective disorder 5. Hypothyroidism 6. Hx of hypertension COMPLICATIONS/CHIEF COMPLAINT: Glioblastoma Multiforme. HISTORY OF PRESENT ILLNESS: The patient is a 57-year-old man with known glioblastoma multiforme (GBE), who is presenting for his regularly scheduled outpatient radiation oncology, where nursing staff was informed that he was more unsteady on his feet and tremulous than usual. Radiation oncologist did have concern for worsening cerebral edema in the face of chemotherapy and radiation and referred him to the emergency room. Upon his presentation to the emergency room, he did have a CAT scan with worsening symptoms. He previously has undergone debulking surgery and follows with Dr. Valentine regarding continued chemotherapy. Emergency room (ER) providers did recommend transfer to [facility], where Dr. Goodson is neurosurgeon, who had done his previous debulking surgery, and could evaluate for his worsening brain lesion, cerebral edema and midline shift. There was concern for possible catastrophic cerebral herniation. The patient declined offers for transfer. At the present time, the patient tells me that he feels constipated. There are no other complaints. HOSPITAL COURSE: Patient was admitted because of the worsening glioblastoma multiform. He presented with worsening unsteadiness and increased tremulous. CT of the head showed an ill-defined mass at the posterior left frontal and anterior left frontal parietal lobe with surrounding edema and mass effect with minimal midline shift to the right. It showed mass effect or midline shift were increased compared to previous study. His healthcare proxy who is his sister was called as well as his mom to discuss comfort measures. On 06/06/2018 the patient was made NIPPLE THREADER. Today hell be discharged to home hospice. DISCHARGE MEDICATIONS: Please see below. ALLERGIES: Please see below. PHYSICAL EXAMINATION ON DISCHARGE: VITAL SIGNS: Please see below. GENERAL: Elderly man laying in bed. No acute respiratory distress. Poor mentation, unable to communicate appropriately. Resting tremor present. CARDIOVASCULAR: Regular rate and rhythm. RESPIRATORY: Diminished breath sounds due to decreased respiratory efforts. ABDOMINAL: Soft, decreased bowel sounds throughout. Pulsatile mass present. EXTREMITIES: resting tremor present. NEUROLOGICAL: Resting and intention tremor present in bilateral UE, dysmetria evident on finger to nose test. Tongue deviation to the L. Diminished creative engagement director st rength on the right. RLE muscle strength 1/5 and LLE 3/5. Answers some questions inappropriately. Slurred and gargled speech LABORATORY DATA: Please see below. IMAGIN06/05/[address] There is an ill-defined mass in the posterior left frontal and anterior left parietal lobes with surrounding edema and mass effect with minimal midline shift to the right. The mass effect and midline shift are increased compared to the previous study. Chest x-ray Impression: Negative PA and lateral chest. There is no interval change. Abdominal x-ray Impression: Mildly distended small bowel loops on the right, nonspecific, possibly focal ileus. Questionable fecal impaction in the rectal ampulla. PROGNOSIS: Poor ACTIVITY: As tolerated. DIET: As tolerated DISPOSITION: Hospice DISCHARGE INSTRUCTIONS: 1. f.u w/ pcp as needed 2. if pain is not managed at the hospice house please call your pcp or return to the ER. DISCHARGE CONDITION: Stable. TIME SPENT ON DISCHARGE: Greater than 35 minutes. Vital Signs/I&Os Vital Signs Date Time Temp Pulse Resp B/P (MAP) Pulse Ox O2 Delivery O2 Flow Rate FiO2 06/11/18 06:00 100.4 80 16 119/69 (86) 92 06/05/18 14:30 Room Air I&O- Last 24 Hours up to 6 AM 06/11/18 06:00 Intake Total 1180 ml Output Total 0 ml Balance 1180 ml Discharge Medications Scheduled Dexamethasone (Dexamethasone) 2 Mg Tablet, 2 MG PO BIDWM, (Reported) [place] Carbonate ([place] Carbonate) 150 Mg Cap, 150 MG PO QHS, (Reported) [place] Carbonate ([place] Carbonate ER) 450 Mg Tabcr, 450 MG PO QAM, (Reported) Scheduled PRN Hyoscyamine Sulfate (Hyoscyamine Sulfate) 0.125 Mg Tab.subl, 0.125 MG PO Q4HP PRN for TERMINAL SECRETIONS Use sublingually if unable to swallow Lorazepam (Lorazepam) 0.5 Mg Tablet, 0.5 MG PO Q4HP PRN for ANXIETY/AGITATION Use sublingually if unable to swallow Morphine Sulfate (Morphine Sulfate) 100 Mg/5 Ml Solution, 0.25-1 ML PO Q2H PRN for PAIN OR DYSPNEA Use sublingually if unable to swallow Allergies Coded Allergies: No Known Allergies (Unverified , 05/14/18) GME ATTESTATION GME ATTESTATION My faculty preceptor for this patient encounter was physically present during the encounter and was fully available. All aspects of the patient interview, examination, medical decision making process, and medical care plan development were reviewed and approved by the faculty preceptor. The faculty preceptor is aware and concurs with the plan as stated in the body of this note and will attest to such by his/her cosignature. DANNY ISBELL DO Jun 11, 2018 10:44
== END 2018-06-11 10:35 | disposition hospice, inpatient (51) | DRG 54 ==
LOC: M ED 13:27 → M ED INP 16:50 → M MS5PR 18:53 → OBSVTOIN 06-09 13:15
PROVIDERS: ADMIT Internal Medicine; ATTEND Internal Medicine Nephrology
DX: C71.1 Malignant neoplasm of frontal lobe (principal); G93.6 Cerebral edema; G93.5 Compression of brain; Z51.5 Encounter for palliative care; K56.41 Fecal impaction; I10 Essential (primary) hypertension; E11.9 Type 2 diabetes mellitus without complications; N40.0 Benign prostatic hyperplasia without lower urinary tract symptoms; E03.9 Hypothyroidism, unspecified; F31.9 Bipolar disorder, unspecified; C71.3 Malignant neoplasm of parietal lobe; Z79.899 Other long term (current) drug therapy; K21.9 Gastro-esophageal reflux disease without esophagitis; Z79.82 Long term (current) use of aspirin